=== PATIENT | female | born 1945 | race Caucasian/White ===

== ENCOUNTER 2023-11-23 20:56 | Inpatient (IN) | payer OTHER, SELFPAY ==
[2023-11-23] VITALS (8 sets, daily range): BP systolic 97–149; BP diastolic 50–72; BMI 23.8; BMI 24.1
[2023-11-23 16:35] LABS: % Basophils 0.7 % (0-2); % Eosinophils 6.8 % (0-6); % Immature Granulocytes 1.9 % (0-0.5); % Lymphocytes 9.5 % (20.5-51.1); % Monocytes 10.1 % (1.7-9.3); Absolute Basophils 0.1 10^3/uL (0-0.2); Absolute Eosinophils 0.8 10^3/uL (0-0.7); Absolute Immature Granulocytes 0.2 10^3/uL (0-0.05); Absolute Lymphocytes 1.1 10^3/uL (1.2-3.4); Absolute Monocytes 1.2 10^3/uL (0.1-0.6); Absolute Neutrophils 8.1 10^3/uL (1.4-6.5); Hematocrit 34.6 % (37.0-47.0); Hemoglobin 11.4 g/dL (12.0-16.0); Mean Corp Hgb Conc. 32.9 g/dL (33.0-37.0); Mean Platelet Volume 10.7 fL (7.4-10.4); Nucleated Red Blood Cells % 0 %; Platelet Count 317 10^3/uL (130-400); Red Blood Cell Count 4.07 10^6/uL (4.20-5.40); Red Cell Dist. Width 14.6 % (11.5-14.5); White Blood Cell Count 11.4 10^3/uL (4.8-10.8)
[2023-11-23 16:51] LABS: COVID-19 Antigen Negative (Negative)
--- NOTE | 2023-11-23 16:54 | ED.GENMED ---
History of Present Illness
General
Chief Complaint: Fever
Time Seen by Provider: 11/23/23 16:16
History of Present Illness
History of Present Illness:
78-year-old female history of colitis, IgG deficiency presenting with fever since 11/06. Patient states that she was admitted to [facility] from 10/29 to 11/01. Patient states that she was given prednisone taper that she completed on 11/05.
Patient states that on 11/06 she developed a fever which she has had every day since. Patient states that Tmax 101. Patient states that she followed up with her PCP today who sent patient to the ER for further workup. Patient reports dry cough for
the past 2 to 3 weeks with associated shortness of breath. Patient denies chest pain. Patient reports abdominal pain with nausea. Patient states that she takes MiraLAX daily and notes that she has had smaller bowel movements since. Patient
denies dysuria or hematuria.
Past History
Past History
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
ED Past Surgical History: Cardiac (Subclavian stenosis stenting)
Social History
Tobacco: Smoker
Alcohol: None
Drug: None
Personal:
Living: with family
Employment: Retired
Family History
Family History: Other (Reviewed and Noncontributory)
Phy Exam
Physical Exam
Physical Exam:
General: Alert, no acute distress
Head: NCAT
Eyes: clear conjunctiva
Neck: supple
Cardiac: tachycardic, regular rhythm, no murmur
Lungs: clear to auscultation bilaterally. No wheezes, rales, or rhonchi. Speaking full unlabored sentences. No respiratory distress.
Abdomen: soft, nondistended, left lower quadrant tenderness to palpation. No rebound or guarding.
MSK: no lower extremity edema bilaterally. No deformity
Skin: warm, dry
Neuro: Alert and oriented x3. no focal deficits
Course
Orders/Labs/Results
Orders:
Orders
11/23/23 16:24
COVID-19 Antigen Urgent
Source: Nasal Swab
Complete Blood Count/With Diff Urgent
Comprehensive Metabolic Panel Urgent
Lipase Urgent
Influenza A+B Rapid Molecular Urgent
EMANUEL Source: Nasal Swab
Specimen Description:
11/23/23 16:53
Abdomen/Pelvis w Contrast CT [CT Abd/pelvis W Iv Cont] Urgent
Comment:
Reason For Exam: llq tenderness, fever
Acetaminophen [Tylenol] 1,000 mg PO NOW STA
CXR2 [CR Chest - 2 Views ] Urgent
Comment:
Reason For Exam: cough sob
11/23/23 16:54
0.9% Sodium Chloride 1000 ml [Nss] 1,000 ml IV BOLUS
11/23/23 16:59
Diphenhydramine [Benadryl] 50 mg IV NOW STA
MethylPREDNISolone PF [Solu-Medrol Pf] 125 mg IV NOW STA
11/23/23 17:10
Lactic Acid Urgent
Blood Culture Urgent
EMANUEL Source: Blood/Venous
Specimen Description:
11/23/23 17:26
UA Reflex to Culture [Urinalysis Reflex To Culture] Urgent
Date Specimen was Collected: 11/23/23
Time Specimen was Collected: 17:14
Urine Microscopic Reflex Cult Urgent
Blood Culture Urgent
EMANUEL Source: Blood/Venous
Specimen Description:
11/23/23 19:39
Piperacillin/Tazo 4.5 Gram [Zosyn] 4.5 gram in 100 ml IV NOW
Vancomycin 1 Gram/200 ml [Vancocin] 1 gram in 200 ml IV NOW
Abnormal Lab Results
11/23/23 11/23/23
16 17:26
WBC 11.4 H 10^3/uL
(4.8-10.8)
RBC 4.07 L 10^6/uL
(4.20-5.40)
Hgb 11.4 L g/dL
(12.0-16.0)
Hct 34.6 L %
(37.0-47.0)
MCHC 32.9 L g/dL
(33.0-37.0)
RDW 14.6 H %
(11.5-14.5)
MPV 10.7 H fL
(7.4-10.4)
Abs Immat Gran (auto) 0.2 H 10^3/uL
(0-0.05)
Absolute Neuts (auto) 8.1 H 10^3/uL
(1.4-6.5)
Absolute Lymphs (auto) 1.1 L 10^3/uL
(1.2-3.4)
Absolute Monos (auto) 1.2 H 10^3/uL
(0.1-0.6)
Absolute Eos (auto) 0.8 H 10^3/uL
(0-0.7)
Immature Gran % 1.9 H %
(0-0.5)
Lymphocytes % 9.5 L %
(20.5-51.1)
Monocytes % 10.1 H %
(1.7-9.3)
Eosinophils % 6.8 H %
(0-6)
Sodium 133 L mmol/L
(135-145)
Glucose 103 H mg/dl
(70-99)
Total Protein 5.3 L g/dl
(6.3-8.2)
Albumin 3.3 L g/dl
(3.5-5.0)
Urine Ketones Trace A
(Negative)
Leukocyte Esterase Rfl Trace A
(Negative)
11/23/23 16:24
11/23/23 16:24
Vital Signs
Initial and Last Documented VS:
Initial Vital Signs
Temp Pulse Resp BP Pulse Ox
103 F H 106 18 149/72 93
11/23/23 16:12 11/23/23 16:12 11/23/23 16:12 11/23/23 16:12 11/23/23 16:12
Last Documented Vital Signs
Temp Pulse Resp BP Pulse Ox
98.9 F 106 18 149/72 93
11/23/23 19:16 11/23/23 16:12 11/23/23 16:12 11/23/23 16:12 11/23/23 16:12
MDM/Problems Addressed
Differential Diagnosis Includes:
Patient presents to the Emergency Department with ___fever
Number and Complexity of Problems Addressed at the Encounter
� Chronic conditions affecting care:
� Acute Exacerbation and/or Progression of Chronic Illness:
� Differential Diagnosis includes: UTI, pneumonia, viral syndrome, diverticulitis, intra-abdominal abscess, bacteremia
Amount and/or Complexity of Data to be Reviewed and Analyzed
� I performed an independent evaluation of and my interpretation is:
EKG:
CT:
Xrays: CXR clear with no focal infiltrate or consolidation as read by me
Laboratory Studies: leukocytosis with left shift. lactate within normal limits
Other:
� Review of other/old records reveals:
� Clinical information was obtained by an independent historian:
� Prescriptions/Medications Considered but not given:
� Further testing considered but not performed:
Risk of Complications and/or Morbidity or Mortality of Patient Management
� Social Determinants of health affecting care:
� Discussion with other providers (PCP, Hospitalists, Consultants, etc):
� Escalation of care including admission/observation vs risk of discharge considered: 78-year-old female presenting with fever since 11/06. Patient reports dry cough with associated shortness of breath for the past 2 weeks. Patient also reports
abdominal pain with nausea for the past 2 weeks. Heart tachycardic, lungs clear, abdomen soft nondistended left lower quadrant tenderness palpation. Will obtain septic workup including CT abdomen pelvis. Results reviewed. White count 11.4 with
left shift. Lactate normal. Electrolytes, creatinine within normal limits. UA negative for UTI. COVID/flu negative. Chest x-ray clear as read by me. CT abdomen pelvis showed Spiculated noncalcified right lower lobe pulmonary nodule. New. PET
imaging recommended. Large amount of fecal material throughout the colon. Ordered vancomycin and Zosyn for broad-spectrum antibiotics. Discussed results with patient at bedside. Discussed with hospitalist who accepts for admission for fever,
unknown source. Blood cultures pending
*Critical Care Note
Total Time (30-74mins, 75-104mins- exclusive of procedures): Not Applicable
ED Attending Note
-
Portions of this chart may have been created with voice recognition software.� Occasional wrong word or��sound alike� substitutions may have occurred due to the inherent limitations of voice recognition software.
Discharge Plan
Departure
Patient Disposition: Admit
Date of Disposition: 11/23/23
Time of Disposition: 19:54
Presentation/result/management discussed w/ accepting MD/DO: Hospitalist
Patient with high blood pressure during this ER visit?: Yes
Discharge Problem:
Fever
Prescriptions:
No Action
cetirizine 10 MG tablet
10 mg PO DAILY
diltiazem HCl 30 MG tablet
30 mg PO BID
diphenhydramine HCl [Banophen] 25 MG capsule
25 mg PO HS
nicotine 21 MG patch 24 hour
21 mg transdermal DAILY
Patient Comments:
05/02/2023: Takes off at bedtime.
rosuvastatin 5 MG tablet
5 mg PO MOWEFR
Hold Instructions: Resume on 04/26/23. Resume during the day after finishing Paxlovid
Rx Instructions:
On Hold From Paxlovid
famotidine 20 MG tablet
20 mg PO HS
aspirin 81 MG tablet,delayed release (DR/EC)
81 mg PO DAILY
fluticasone propion-salmeterol [Wixela Inhub] 250-50 mcg/dose Blister With Device
1 inh INHALATION R DAILY
Hold Instructions: Resume on 04/26/23. Resume the day after finishing Paxlovid.
levothyroxine 75 mcg Tablet
75 mcg PO DAILY
oxycodone-acetaminophen 5-325 mg Tablet
0.5 tab PO BIDPRN PRN (Reason: back pain)
Hold Instructions: Resume on 04/26/23. Resume the day after finishing Paxlovid
Patient Comments:
05/02/2023: last filled 03/17/23, 60 tabs for [address] [id number]
bisacodyl 5 mg Tablet
10 mg PO HS PRN (Reason: constipation)
ezetimibe 10 mg Tablet
10 mg PO HS
Senokot Extra Strength 17.2 mg Tablet
17.2 mg PO BID PRN (Reason: constipation)
cholecalciferol (vitamin D3) 25 mcg (1,000 unit) Tablet
25 mcg PO DAILY
Spiriva Respimat 2.5 mcg/actuation Mist
1 inh INHALATION R DAILY
lisinopril 5 MG tablet
5 mg PO DAILY
prednisone 20 mg tablet
20 mg PO DAILY
Rx Instructions:
x 5 days, Finished 05/01/23
pantoprazole 40 mg Tablet,Delayed Release (Dr/Ec)
40 mg PO DAILY Qty: 30 0RF
Referrals:
Aria Chu MD [Family Provider] -
Interventions
Interventions:
*Risk Screen - Suicide Last Done: 11/23/23 16:20
*General Assessment Last Done: 11/23/23 16:20
*Neglect/Abuse Screening Last Done: 11/23/23 16:20
ED- Fall Risk Assessment Last Done: 11/23/23 16:22
*ED COVID-19 Vaccine History Last Done: 11/23/23 16:20
ED- Neurological Assessment Last Done: 11/23/23 16:21
ED-Skin Assessment Last Done: 11/23/23 16:21
Discharge Date and Time
Print Language: RWANDAN
[2023-11-23] MEDS: TYLENOL 1000 MG PO (17:05)
[2023-11-23] MEDS: NSS 1000 IV ×2 (17:19→21:46)
[2023-11-23] MEDS: BENADRYL 50 MG IV (17:20)
[2023-11-23] MEDS: SOLU-MEDROL PF 125 MG IV (17:21)
[2023-11-23 17:30] LABS: ALT (SGPT) 13 U/L (0-35); AST (SGOT) 19 U/L (14-36); Albumin 3.3 g/dl (3.5-5.0); Alkaline Phosphatase 104 U/L (38-126); Blood Urea Nitrogen 16 mg/dl (7-17); Calcium 9.3 mg/dl (8.4-10.2); Carbon Dioxide 25 mmol/L (22-30); Chloride 103 mmol/L (98-107); Estimated Creatinine Clearance 40 ml/min; Glucose 103 mg/dl (70-99); Lipase 51 U/L (23-300); Sodium 133 mmol/L (135-145); Total Bilirubin 0.6 mg/dl (0.2-1.3); Total Protein 5.3 g/dl (6.3-8.2); eGFR > 60.00
[2023-11-23 17:33] LABS: Lactic Acid 0.9 mmol/L (0.7-2.0)
[2023-11-23 17:37] LABS: Urine Albumin Trace (Neg - Trace); Urine Bilirubin Negative (Negative); Urine Character Clear (Clear); Urine Color Yellow; Urine Glucose Negative (Negative); Urine Ketone Trace (Negative); Urine Leukocyte Trace (Negative); Urine Nitrite Negative (Negative); Urine Occult Blood Negative (Negative); Urine Urobilinogen Negative (Neg - 1+)
[2023-11-23 17:46] LABS: Urine Red Blood Cell 0-2 /HPF (0-2)
[2023-11-23] MEDS: ZOSYN 100 IV (19:50)
[2023-11-23] MEDS: VANCOCIN 200 IV (20:25)
--- NOTE | 2023-11-23 20:30 | HPS.HSE ---
Family Physician
-
Family Physician: Aria Chu
Chief Complaint
-
fever
History of Present Illness
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
stenosis, subclavian artery stent, hypertension, hyperlipidemia, peripheral arterial disease status post stent,, TIA, DVT, chronic lower back pain, presenting with fever since 11/06. She has been having daily fevers as high as 101.
Patient states dhe was admitted to [facility] from 10/29 to 11/01 for COPD exacerbation treated with steroids, nebulizers and antibiotics.
Since that admission she has been having issues with constipation. She is having daily bowel movements with stools very thin and hard and pale-colored. She has pain with straining. She has abdominal pain with pain in her lower quadrants of her
abdomen and increased abdominal distention. She denies any blood in the stool or black stool.
She was admitted here in April for rectal bleeding thought to be secondary to diverticulosis/colitis. She had a EGD and colonoscopy in May of this year which apparently showed a stomach tear and she was started on Pepcid. She was started on
MiraLAX at that time which she has been taking daily.
She does have some mild dry cough and shortness of breath which is improved compared to her recent hospitalization. She denies any chest pain.
She no longer smokes. She denies alcohol.
Medical History
Past Medical History
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
subclavian artery stent, hypertension, hyperlipidemia, peripheral arterial disease stat)
Past Surgical History: Reports None
Social History
Tobacco: Former Smoker
Alcohol: None
Drug: None
Family History
Family History: Not pertinent
Allergies / Home Medications
Allergies reflects when Allergies were last updated in [employer].
Home Medications with original date entered in [employer]
Allergy/Medication List:
Allergies
Allergy/AdvReac Type Severity Reaction Status Date / Time
bupropion HCl Allergy Hives / Verified 11/23/23 16:11
[From Wellbutrin] throat
tightness
dexlansoprazole Allergy Vomiting Verified 11/23/23 16:11
[From Dexilant]
duloxetine [From Cymbalta] Allergy Nausea, Verified 11/23/23 16:11
'burning'
tongue
house dust Allergy Wheezing, Verified 11/23/23 16:11
Sneezing
hydrochlorothiazide Allergy Burning of Verified 11/23/23 16:11
tongue
immune globulin,gamma (IgG) Allergy Serum Verified 11/23/23 16:11
human Sickness
Iodinated Contrast Media Allergy Hives Verified 11/23/23 16:11
Penicillins Allergy as a Verified 11/23/23 16:11
child;
tolerated
cephalexin
Sulfa (Sulfonamide Allergy Hives Verified 11/23/23 16:11
Antibiotics)
venom-honey bee Allergy Anaphylaxis Verified 11/23/23 16:11
[bee venom (honey bee)]
OMNIPAQUE 300 Allergy HEAT Uncoded 11/23/23 16:11
ACCROSS
CHEST AND
1 HIVE
06/29/1997
Home Medications
cetirizine 10 mg tablet 10 mg PO DAILY Allergies 03/06/16
diltiazem HCl 30 mg tablet 30 mg PO BID Heart disease/condition 03/06/16
diphenhydramine HCl 25 mg capsule (Banophen) 25 mg PO HS 04/03/19
aspirin 81 mg tablet,delayed release 81 mg PO DAILY Blood clot prevention/tx 04/01/20
rosuvastatin 5 mg tablet 5 mg PO MOWEFR High cholesterol 04/01/20
cholecalciferol (vitamin D3) 25 mcg (1,000 unit) tablet 25 mcg PO DAILY Supplement 04/20/23
ezetimibe 10 mg tablet 10 mg PO HS High Cholesterol 04/20/23
fluticasone 250 mcg-salmeterol 50 mcg/dose blistr powdr for inhalation (Wixela Inhub) 1 inh inhalation R BID Lung/Breathing Issues 04/20/23
levothyroxine 75 mcg tablet 75 mcg PO DAILY Thyroid 04/20/23
lisinopril 5 mg tablet 5 mg PO DAILY Blood Pressure 04/20/23
oxycodone-acetaminophen 5 mg-325 mg tablet 0.5 tab PO BIDPRN PRN back pain 04/20/23
tiotropium bromide 2.5 mcg/actuation mist for inhalation (Spiriva Respimat) 1 inh inhalation R BID Lung/Breathing Issues 04/20/23
famotidine 40 mg tablet 40 mg PO BID 11/23/23
polyethylene glycol 3350 17 gram oral powder packet (Miralax) 8.5 g PO NOON 11/23/23
Review of Systems
-
History Source: Patient
A 12 point ROS was completed and negative except as noted: Yes
Constitutional: Reports No Symptoms
EENT: Reports No Symptoms
Respiratory: Reports No Symptoms
Cardiac: Reports No Symptoms
Abdomen/GI: Reports See HPI
: Reports No Symptoms
Musculoskeletal: Reports No Symptoms
Skin: Reports No Symptoms
Neurological: Reports No Symptoms
Endocrine: Reports No Symptoms
Hematologic/Lymphatic: Reports No Symptoms
Psych: Reports No Symptoms
Physical Exam
Vital Signs
Vital Signs
Temp Pulse Resp BP Pulse Ox
98.9 F 76 21 121/57 93
11/23/23 19:16 11/23/23 20:00 11/23/23 20:00 11/23/23 20:00 11/23/23 20:00
Physical Exam
General: Well Developed, Well Nourished and No Apparent Distress
HEENT: NormoCephalic, Moist mucous membranes and Atraumatic
Respiratory: Clear
Cardiac: S1/S2 and Regular Rhythm; No Murmur or Rub
GI: Soft, Normal Bowel Sounds, Tender and Distended; No Organomegaly
Rectal: Deferred by Provider
Musculoskeletal: No Clubbing, No Cyanosis and No Edema
Skin: No Rash
Neuro: Nonfocal/grossly intact
Laboratory Results
-
11/23/23 16:24
11/23/23 16:24
Laboratory Results
Lactic Acid 0.9 mmol/L (0.7-2.0) 11/23/23 17:10
Total Bilirubin 0.6 mg/dl (0.2-1.3) 11/23/23 16:24
AST 19 U/L (14-36) 11/23/23 16:24
ALT 13 U/L (0-35) 11/23/23 16:24
Alkaline Phosphatase 104 U/L (38-126) 11/23/23 16:24
Lipase 51 U/L (23-300) 11/23/23 16:24
Data Reviewed
-
Lab Data: Labs Reviewed by me
Old Records: Reviewed
Impression/Plan
-
IMPRESSION:
PLAN:
# Sepsis (fever, leukocytosis, tachycardia) source likely stercoral colitis
-CT abdomen pelvis shows spiculated noncalcified right lower lobe pulmonary nodule for which PET scan is recommended, large amount of fecal material throughout the colon which is progressed
-COVID-negative, influenza negative
-Check blood cultures
-IV fluids
-Vancomycin/Zosyn given, continue cefepime/Flagyl
-Continue MiraLAX
-Milk and molasses enema
-Clear liquid diet
-GI consulted
# History of 'stomach tear'
-as seen on recent EGD/colonoscopy
# Incidental discovery of right lower lobe pulmonary nodule
-Will require outpatient PET scan
History of diverticulitis status post sigmoid resection in 1997
History of rectal bleeding secondary to colitis/diverticulosis
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
COPD
-Continue inhalers
Tobacco use disorder
History of thyroidectomy
Hypothyroidism
-Continue levothyroxine
Bilateral carotid artery stenosis
-Continue aspirin
History of subclavian artery stent
Essential hypertension
-Continue diltiazem
-Continue lisinopril
Hyperlipidemia
-Continue Zetia, statin
Peripheral arterial disease status post stent
History of TIA
History of DVT
Chronic lower back pain
-Continue Percocet
History of sacroiliac joint injection/right total hip replacement
Full code
DVT prophylaxis�heparin
Clear liquid diet
--- NOTE | 2023-11-23 21:15 | PTCARENOTE ---
Pt arrived from ED via stretcher and ambulated to bed. Pt is AAOx3, VSS, and w/o complaints of pain. Pt is resting comfortably w/ call lowe within reach.
--- NOTE | 2023-11-23 22:50 | PTCARENOTE ---
Pt ordered Milk and Molasses enema. Pt tolerated the full amount and had a formed moderate size bowel movement. Pt stated she had partial relief. Pt is resting comfortably w/ call lowe within reach.
[2023-11-23] MEDS: FLAGYL 500 MG 100 IV (23:10)
[2023-11-23] MEDS: ZETIA 10 MG PO (23:12)
[2023-11-23] MEDS: PEPCID 20 MG PO (23:12)
[2023-11-23] MEDS: BENADRYL 25 MG PO (23:12)
[2023-11-24 01:30] VITALS: BP 94/56
[2023-11-24] MEDS: MAXIPIME 1000 MG IV ×2 (01:41→13:43)
[2023-11-24] MEDS: STERILE WATER FOR INJECTION 10 ML IV ×2 (01:41→13:44)
[2023-11-24 04:00] VITALS: BP 124/60
[2023-11-24] MEDS: SYNTHROID 75 MCG PO (05:34)
[2023-11-24] MEDS: FLAGYL 500 MG 100 IV ×3 (05:34→22:09)
--- NOTE | 2023-11-24 07:18 | W.PN.HOSP.TC ---
Today's Communication/Plan
-
cont abx
bowel regimen enema diet as per GI
pain control
Assessment / Plan
Assessment / Plan
Physical Exam
General: Well Developed, Well Nourished and No Apparent Distress
HEENT: NormoCephalic, Moist mucous membranes and Atraumatic
Respiratory: Clear
Cardiac: S1/S2 and Regular Rhythm; No Murmur or Rub
GI: Soft, Normal Bowel Sounds, LLQ Tenderness Distended; No Organomegaly
Musculoskeletal: No Clubbing, No Cyanosis and No Edema
Skin: No Rash
Neuro: AOx3
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
artery stenosis, subclavian artery stent, hypertension, hyperlipidemia, peripheral arterial disease status post stent,, TIA, DVT, chronic lower back pain, presenting with fever since 11/06. She has been having daily fevers as high as 101.
Patient states dhe was admitted to [facility] from 10/29 to 11/01 for COPD exacerbation treated with steroids, nebulizers and antibiotics.
Since that admission she has been having issues with constipation. She is having daily bowel movements with stools very thin and hard and pale-colored. She has pain with straining. She has abdominal pain with pain in her lower quadrants of her
abdomen and increased abdominal distention. She denies any blood in the stool or black stool.
She was admitted here in April for rectal bleeding thought to be secondary to diverticulosis/colitis. She had a EGD and colonoscopy in May of this year which apparently showed a stomach tear and she was started on Pepcid. She was started on
MiraLAX at that time which she has been taking daily.
She does have some mild dry cough and shortness of breath which is improved compared to her recent hospitalization. She denies any chest pain.
She no longer smokes. She denies alcohol.
# Sepsis (fever, leukocytosis, tachycardia) source likely stercoral colitis
-CT abdomen pelvis shows spiculated noncalcified right lower lobe pulmonary nodule for which PET scan is recommended, large amount of fecal material throughout the colon which is progressed
-COVID-negative, influenza negative
-follow blood cultures
-IV fluids completed
-empiric Vancomycin/Zosyn switched to cefepime/Flagyl
-GI consult appreciated cont bowel regimen repeat enema
# History of 'stomach tear'
-as seen on recent EGD/colonoscopy
# Incidental discovery of right lower lobe pulmonary nodule
-Will require outpatient PET scan
History of diverticulitis status post sigmoid resection in 1997
History of rectal bleeding secondary to colitis/diverticulosis
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
COPD
-Continue inhalers
Tobacco use disorder
History of thyroidectomy
Hypothyroidism
-Continue levothyroxine
Bilateral carotid artery stenosis
-Continue aspirin
History of subclavian artery stent
Essential hypertension
-Continue diltiazem
-Continue lisinopril
Hyperlipidemia
-Continue Zetia, statin
Peripheral arterial disease status post stent
History of TIA
History of DVT
Chronic lower back pain
-Continue Percocet
History of sacroiliac joint injection/right total hip replacement
Full code
DVT prophylaxis�heparin
I spent a total of 55 minutes with the patient or on the floor. More than 50% of this time involved counseling and coordination of care.
Anticipated Discharge: 24 - 48 hours
Subjective/Interval History
-
Date of Service: November 24, 2023
No acute distress. Reports overall improvement in symptoms. Notes some relief constipation from enemas though not resolved.
Objective Data
-
Labs:
Laboratory Results
11/24/23
06:00
WBC Pending
Hgb Pending
Hct Pending
Plt Count Pending
Sodium Pending
Potassium Pending
Chloride Pending
Carbon Dioxide Pending
BUN Pending
Creatinine Pending
Glucose Pending
Calcium Pending
Total Bilirubin Pending
AST Pending
ALT Pending
Alkaline Phosphatase Pending
Vital Signs:
Vital Signs
Temp Pulse Resp BP Pulse Ox
97.8 F 64 17 124/60 95
11/24/23 01:30 11/23/23 23:55 11/23/23 23:55 11/24/23 04:00 11/23/23 23:55
[2023-11-24 07:30] VITALS: BP 115/60
[2023-11-24 08:00] LABS: % Basophils 0.7 % (0-2); % Eosinophils 0.2 % (0-6); % Immature Granulocytes 0.3 % (0-0.5); % Lymphocytes 18.2 % (20.5-51.1); % Monocytes 2.4 % (1.7-9.3); % Neutrophils 78.2 % (42.2-75.2); Absolute Monocytes 0.1 10^3/uL (0.1-0.6); Absolute Neutrophils 4.5 10^3/uL (1.4-6.5); Hematocrit 32.5 % (37.0-47.0); Hemoglobin 10.8 g/dL (12.0-16.0); Mean Corp Hgb Conc. 33.2 g/dL (33.0-37.0); Mean Corpuscular Hgb 28.6 pg (27.0-31.0); Mean Corpuscular Volume 86.2 fL (81.0-99.0); Mean Platelet Volume 10.8 fL (7.4-10.4); Nucleated Red Blood Cells % 0 %; Platelet Count 285 10^3/uL (130-400); Red Blood Cell Count 3.77 10^6/uL (4.20-5.40); Red Cell Dist. Width 14.4 % (11.5-14.5); White Blood Cell Count 5.7 10^3/uL (4.8-10.8)
[2023-11-24] MEDS: ADVAIR HFA 115/21 MCG INHALER 2 PUFF INH ×2 (08:07→20:07)
[2023-11-24] MEDS: SPIRIVA RESPIMAT 2.5 MCG 1 PUFF INH ×2 (08:07→20:07)
[2023-11-24] MEDS: ZYRTEC 10 MG PO (08:20)
[2023-11-24] MEDS: ASPIR LOW (ENTERIC COATED) 81 MG PO (08:21)
[2023-11-24] MEDS: VITAMIN D3 (cholecalciferol) 25 MCG PO (08:21)
[2023-11-24] MEDS: ZESTRIL 5 MG PO (08:21)
[2023-11-24] MEDS: CARDIZEM 30 MG PO ×2 (08:21→21:01)
[2023-11-24] MEDS: NICODERM TRANSDERMAL 14 MG TRANSDERM (08:22)
[2023-11-24 08:54] LABS: ALT (SGPT) 14 U/L (0-35); AST (SGOT) 17 U/L (14-36); Alkaline Phosphatase 94 U/L (38-126); Blood Urea Nitrogen 15 mg/dl (7-17); Carbon Dioxide 19 mmol/L (22-30); Chloride 110 mmol/L (98-107); Estimated Creatinine Clearance 52 ml/min; Glucose 127 mg/dl (70-99); Potassium 4.3 mmol/L (3.5-5.1); Sodium 136 mmol/L (135-145); Total Bilirubin 0.4 mg/dl (0.2-1.3); Total Protein 5.1 g/dl (6.3-8.2); eGFR > 60.00
--- NOTE | 2023-11-24 11:10 | CON.GI ---
Addendum entered and electronically signed by Philly Slade DO 11/24/23 17:00:
Patient seen and examined independently of ROGELIO. I agree with her note with my additions below
Jovita is a 78-year-old female with COPD with recent exacerbation and [facility], TIA, DVT, polycythemia vera who presents with fever, cough and lower abdominal pain with constipation. Imaging shows a large amount of stool. CT
scan which I reviewed does not show any evidence of diverticulitis. She was given 2 enemas with some relief.
No further fevers since yesterday. CT shows a right lower lobe pulmonary nodule that is spiculated. COVID-negative. Blood cultures are pending. On empiric antibiotics.
# Constipation patient was doing well outpatient on a once daily MiraLAX regimen -until she was admitted to [place] for COPD exacerbation which was the perfect storm including anticholinergics, immobility and lack of MiraLAX
--Patient did have 2 enemas with minimal relief
--Will give her a half bottle of magnesium citrate and continue her MiraLAX. Continue MiraLAX upon discharge.
-- On exam she is tender especially on the left side of her abdomen -no significant lymphadenopathy. Bowel loops are normal caliber. Terminal ileum was normal. Large amount of fecal material throughout the colon. Mild diverticulosis without
diverticulitis. No evidence of rectal thickening.
# Spiculated pulmonary nodule per primary
Original Note:
Consultation
-
Date/Time Consultation Requested: 11/23/233
Date/Time Consultation Performed: 11/24/23 1110
Requesting Provider: Erich Almazan MD
Performing Provider: ROGELIO Santa, Philly Slade DO
Reason for Consultation: colitis
Medical History
Chief Complaint / HPI
Chief Complaint: Rectal bleeding, colitis
History of Present Illness:
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
bleeding possible colitis on CT in April with recent admission to [place] 10/29-11/01 for COPD with steroid, nebulizer and abx treatment. Since admission noted with constipation and now presents with cough, fever, and constipation. CT
concerning on admission for large amount of fecal material in colon and CXR with right middle lobe PNA and pulm nodule. Asked to eval for continued change in bowel issues.
In reviewing with patient she had bleeding last April with follow up EGD/colon. She was placed on Famotidine 40mg BID and Miralax daily with improved GI symptoms. While at [place] Miralax was stopped and on return home was only passing
small amounts of stool. She admits to small amount of rectal bleeding from irritation with enema given in ER. She also admits to some nausea and occasional lower abdominal pain. She denies odynophagia, dysphagia, GERD, or black stools. Pt also
admits to recent of daughter but denies any change in medication or new antidepressants started.
Past Medical History
Past Medical History: COPD, HTN, Hypothyroidism and Other (DVT, IgG deficiency due to thryoid XRT as child, Polycytehmia vera, diverticulitis with prior resection. constipation, carotid artery stenosis, TIA,chronic back pain, osteoarthritis )
Past Surgical History: Other (Subclavian stenosis stent, Sigmoid colon resection, thyroidectomy)
Social History
Tobacco: Smoker (quit 10/2023)
Alcohol: None
Drug: None
Living: With Family (son)
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
Family History
Family History: Other (mother with hx diverticular disease and colostomy in past )
Allergies / Home Medications
Allergy/AdvReac Type Severity Reaction Status Date / Time
bupropion HCl Allergy Hives / Verified 11/23/23 16:11
[From Wellbutrin] throat
tightness
dexlansoprazole Allergy Vomiting Verified 11/23/23 16:11
[From Dexilant]
duloxetine [From Cymbalta] Allergy Nausea, Verified 11/23/23 16:11
'burning'
tongue
house dust Allergy Wheezing, Verified 11/23/23 16:11
Sneezing
hydrochlorothiazide Allergy Burning of Verified 11/23/23 16:11
tongue
immune globulin,gamma (IgG) Allergy Serum Verified 11/23/23 16:11
human Sickness
Iodinated Contrast Media Allergy Hives Verified 11/23/23 16:11
iohexol [From Omnipaque] Allergy 300-HEAT Verified 11/23/23 21:11
ACCROSS
CHEST AND
1 HIVE
06/29/1997
Penicillins Allergy as a Verified 11/23/23 16:11
child;
tolerated
cephalexin
Sulfa (Sulfonamide Allergy Hives Verified 11/23/23 16:11
Antibiotics)
venom-honey bee Allergy Anaphylaxis Verified 11/23/23 16:11
[bee venom (honey bee)]
�Medication �Instructions �Recorded
cetirizine 10 mg tablet 10 mg PO DAILY Allergies 03/06/16
diltiazem HCl 30 mg tablet 30 mg PO BID Heart 03/06/16
disease/condition
diphenhydramine HCl 25 mg capsule 25 mg PO HS sleep 04/03/19
(Banophen)
aspirin 81 mg tablet,delayed 81 mg PO DAILY Blood clot 04/01/20
release prevention/tx
rosuvastatin 5 mg tablet 5 mg PO MOWEFR High cholesterol 04/01/20
cholecalciferol (vitamin D3) 25 25 mcg PO DAILY Supplement 04/20/23
mcg (1,000 unit) tablet
ezetimibe 10 mg tablet 10 mg PO HS High Cholesterol 04/20/23
fluticasone 250 mcg-salmeterol 50 1 inh inhalation R BID 04/20/23
mcg/dose blistr powdr for Lung/Breathing Issues
inhalation (Wixela Inhub)
levothyroxine 75 mcg tablet 75 mcg PO DAILY Thyroid 04/20/23
lisinopril 5 mg tablet 5 mg PO DAILY Blood Pressure 04/20/23
oxycodone-acetaminophen 5 mg-325 0.5 tab PO BIDPRN PRN back pain 04/20/23
mg tablet
tiotropium bromide 2.5 1 inh inhalation R BID 04/20/23
mcg/actuation mist for inhalation Lung/Breathing Issues
(Spiriva Respimat)
famotidine 40 mg tablet 40 mg PO BID fluid retention/edema 11/23/23
nicotine 14 mg/24 hr daily 1 patch transdermal DAILY smoking 11/23/23
transdermal patch cessation
polyethylene glycol 3350 17 gram 8.5 g PO NOON constipation 11/23/23
oral powder packet (Miralax)
Review of Systems
-
History Source: Patient
Constitutional: Reports Fever and Weight Loss (with recent admission)
EENT: Reports No Symptoms
Respiratory: Reports Cough
Cardiac: Reports No Symptoms
Abdomen/GI: Reports Abdominal Pain (lower abdominal pain at times ) and Nausea
: Reports No Symptoms
Musculoskeletal: Reports No Symptoms
Skin: Reports No Symptoms
Neurological: Reports Weakness
Endocrine: Reports No Symptoms
Hematologic/Lymphatic: Reports Bleeding (some noted with local irritation with enema )
Vital Signs
Temp Pulse Resp BP Pulse Ox
97.9 F 65 16 115/60 97
11/24/23 07:30 11/24/23 08:12 11/24/23 08:12 11/24/23 07:30 11/24/23 08:12
Physical Exam
Exam
General: Well Developed, Well Nourished and No Apparent Distress
HEENT: Normocephalic and Anicteric
Respiratory: Clear
Cardiac: Regular Rhythm
GI: Soft, Non Tender and Non Distended
Musculoskeletal: No Clubbing and No Cyanosis
Skin: Warm and Dry
Neuro: Awake, Alert and AO x 3
Psych: Calm
Results
WBC 5.7 10^3/uL (4.8-10.8) 11/24/23 07:45
Hgb 10.8 g/dL (12.0-16.0) L 11/24/23 07:45
Hct 32.5 % (37.0-47.0) L 11/24/23 07:45
MCV 86.2 fL (81.0-99.0) 11/24/23 07:45
Plt Count 285 10^3/uL (130-400) 11/24/23 07:45
Absolute Neuts (auto) 4.5 10^3/uL (1.4-6.5) 11/24/23 07:45
Sodium 136 mmol/L (135-145) 11/24/23 07:45
Potassium 4.3 mmol/L (3.5-5.1) 11/24/23 07:45
Chloride 110 mmol/L (98-107) H 11/24/23 07:45
Carbon Dioxide 19 mmol/L (22-30) L 11/24/23 07:45
BUN 15 mg/dl (7-17) 11/24/23 07:45
Creatinine 0.7 mg/dL (0.6-1.0) 11/24/23 07:45
Calcium 9.0 mg/dl (8.4-10.2) 11/24/23 07:45
Total Bilirubin 0.4 mg/dl (0.2-1.3) 11/24/23 07:45
AST 17 U/L (14-36) 11/24/23 07:45
ALT 14 U/L (0-35) 11/24/23 07:45
Alkaline Phosphatase 94 U/L (38-126) 11/24/23 07:45
Lipase 51 U/L (23-300) 11/23/23 16:24
Diagnostic Image Results:
11/23/23 CXR: findings suggesting mild right middle lobe pneumonia.
Right apical pulmonary nodule versus less likely pneumonia. Progressed. This would better be evaluated by a nonurgent chest CT examination. This will be emailed to the [facility] pulmonary nodule advisory board.
11/23/23 CT A/p with IV contrast
IMPRESSION: Spiculated noncalcified right lower lobe pulmonary nodule. New. PET imaging recommended.
Large amount of fecal material throughout the colon. Progressed
Hepatic cysts. Stable Diverticulosis. Stable
Prior GI Procedures:
EGD: recent 2023 mark - [facility] recall tear in stomach
Colonoscopy: recent in May 2023 [facility] Perez recall diverticulosis
Assessment / Plan
-
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
bleeding possible colitis on CT in April with recent admission to [place] 10/29-11/01 for COPD with steroid, nebulizer and abx treatment. Since admission noted with constipation and now presents with cough, fever, and constipation. CT
concerning on admission for large amount of fecal material in colon and CXR with right middle lobe PNA and pulm nodule. Asked to eval for continued change in bowel issues.
-fever 103 with tachycardia on admission concern for sepsis
-CXR concern for middle lobe PNA
-Ct with constipation
-recent admission at [place] with COPD exacerbation
-lung nodule
other medical problems:
-GI bleed 04/2023 colitis vs other
-stomach 'tear' on EGD in 05/2023
-HTN
-hypothyroidism
-DVT
-Polycythemia vera
-IGG deficiency with prior XRT to thyroid as child
-subclavian arterial stent
-sigmoid resection for diverticular disease
-tobacco abuse
PLAN:
Etiology of fever related to PNA vs constipation/colitis vs other
some stool with 1 enema will give additional enema now
increased Miralax to BID and add senna
repeat X ray in AM to assess for improved stool burden
ok for low residue diet
reviewed CXR with patient with PNA
increase to Famotidine 40mg BID - home dose
cont abx
blood cx pending
work up for lung nodule per hospitalist
OP follows GI at [place] [facility] after discharge
support given with recent of daughter
-
-
Thank you for consultation and allowing me to participate in the patient's care. Please call the manager commission GI physician during the after hours with any questions or concerns.
[2023-11-24] MEDS: NSS IV (13:37)
[2023-11-24] MEDS: MIRALAX 8.5 GRAMS PO (14:09)
[2023-11-24 15:03] VITALS: BP 130/56
--- NOTE | 2023-11-24 16:47 | CM ---
IA completed with Jovita at bedside.
Pt is a 78 year old female with son living with her in a 2SH with 4 entry steps. 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 No DME, VN or SNF history. Pt plans to return home with her son who per pt is very supportive.
D/C plan: home with no needs. Son to transport at discharge.
PCP: Aria Chu
Pharmacy: [facility]
[2023-11-24] MEDS: CRESTOR 5 MG PO (17:50)
[2023-11-24] MEDS: MYLICON 80 MG PO (20:58)
[2023-11-24] MEDS: PEPCID 40 MG PO (21:01)
[2023-11-24] MEDS: MIRALAX 17 GRAMS PO (21:02)
[2023-11-24] MEDS: ULTRAM 25 MG PO (21:16)
[2023-11-24] MEDS: ZETIA 10 MG PO (22:09)
[2023-11-24] MEDS: SENOKOT 17.2 MG PO (22:09)
[2023-11-24] MEDS: BENADRYL 25 MG PO (22:09)
[2023-11-24 23:45] VITALS: BP 102/38
[2023-11-25] MEDS: MAXIPIME 1000 MG IV ×2 (02:57→14:50)
[2023-11-25] MEDS: STERILE WATER FOR INJECTION 10 ML IV ×2 (02:57→14:50)
[2023-11-25] MEDS: FLAGYL 500 MG 100 IV ×3 (05:24→22:02)
[2023-11-25] MEDS: SYNTHROID 75 MCG PO (05:25)
--- NOTE | 2023-11-25 06:49 | W.PN.HOSP.TC ---
Today's Communication/Plan
-
cont abx
bowel regimen enema as per GI
pulm brianal requested
follow cultures
Assessment / Plan
Assessment / Plan
Physical Exam
General: Well Developed, Well Nourished and No Apparent Distress
HEENT: NormoCephalic, Moist mucous membranes and Atraumatic
Respiratory: Clear
Cardiac: S1/S2 and Regular Rhythm; No Murmur or Rub
GI: Soft, Normal Bowel Sounds, LLQ Tenderness Distended; No Organomegaly
Musculoskeletal: No Clubbing, No Cyanosis and No Edema
Skin: No Rash
Neuro: AOx3
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
artery stenosis, subclavian artery stent, hypertension, hyperlipidemia, peripheral arterial disease status post stent,, TIA, DVT, chronic lower back pain, presenting with fever since 11/06. She has been having daily fevers as high as 101.
Patient states bc was admitted to [facility] from 10/29 to 11/01 for COPD exacerbation treated with steroids, nebulizers and antibiotics.
Since that admission she has been having issues with constipation. She is having daily bowel movements with stools very thin and hard and pale-colored. She has pain with straining. She has abdominal pain with pain in her lower quadrants of her
abdomen and increased abdominal distention. She denies any blood in the stool or black stool.
She was admitted here in April for rectal bleeding thought to be secondary to diverticulosis/colitis. She had a EGD and colonoscopy in May of this year which apparently showed a stomach tear and she was started on Pepcid. She was started on
MiraLAX at that time which she has been taking daily.
She does have some mild dry cough and shortness of breath which is improved compared to her recent hospitalization. She denies any chest pain.
She no longer smokes. She denies alcohol.
# Sepsis (fever, leukocytosis, tachycardia) source likely infection from stercoral colitis
-CT abdomen pelvis shows spiculated noncalcified right lower lobe pulmonary nodule for which PET scan is recommended, large amount of fecal material throughout the colon which is progressed
-COVID-negative, influenza negative
-follow blood cultures
-IV fluids completed
-empiric Vancomycin/Zosyn switched to cefepime/Flagyl
-GI consult appreciated cont bowel regimen, low residue diet, enema prn
# History of 'stomach tear'
-as seen on recent EGD/colonoscopy
#Possible PNA noted on CXR
# Incidental discovery of right lower lobe pulmonary nodule
-Will require outpatient PET scan
-abx as above
-Pulm juan luis requested
History of diverticulitis status post sigmoid resection in 1997
History of rectal bleeding secondary to colitis/diverticulosis
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
COPD
-Continue inhalers
Tobacco use disorder
History of thyroidectomy
Hypothyroidism
-Continue levothyroxine
Bilateral carotid artery stenosis
-Continue aspirin
History of subclavian artery stent
Essential hypertension
-Continue diltiazem
-Continue lisinopril
Hyperlipidemia
-Continue Zetia, statin
Peripheral arterial disease status post stent
History of TIA
History of DVT
Chronic lower back pain
-Continue Percocet
History of sacroiliac joint injection/right total hip replacement
Full code
DVT prophylaxis�heparin
Discussed with patient and patient's daughter Christiano at bedside
I spent a total of 55 minutes with the patient or on the floor. More than 50% of this time involved counseling and coordination of care.
Anticipated Discharge: 24 - 48 hours
Subjective/Interval History
-
Date of Service: November 25, 2023
No acute distress. Reports overall feeling well though some abd discomfort remains
Objective Data
-
Labs:
Laboratory Results
07/11/24
06:00
WBC Pending
Hgb Pending
Hct Pending
Plt Count Pending
Sodium Pending
Potassium Pending
Chloride Pending
Carbon Dioxide Pending
BUN Pending
Creatinine Pending
Glucose Pending
Calcium Pending
Vital Signs:
Vital Signs
Temp Pulse Resp BP Pulse Ox
98.4 F 73 18 102/38 97
11/24/23 23:45 11/24/23 23:45 11/24/23 23:45 11/24/23 23:45 11/24/23 23:45
I&O
11/23/23 11/24/23 11/25/23
06:59 06:59 06:59
Intake Total 1939
Balance 1939
[2023-11-25 07:10] VITALS: BP 119/58
[2023-11-25] MEDS: SPIRIVA RESPIMAT 2.5 MCG 1 PUFF INH ×2 (08:17→19:54)
[2023-11-25] MEDS: ADVAIR HFA 115/21 MCG INHALER 2 PUFF INH ×2 (08:17→19:54)
[2023-11-25 08:21] LABS: Hematocrit 28.3 % (37.0-47.0); Hemoglobin 9.4 g/dL (12.0-16.0); Mean Corp Hgb Conc. 33.2 g/dL (33.0-37.0); Mean Corpuscular Volume 87.3 fL (81.0-99.0); Mean Platelet Volume 11.2 fL (7.4-10.4); Platelet Count 288 10^3/uL (130-400); Red Blood Cell Count 3.24 10^6/uL (4.20-5.40); Red Cell Dist. Width 14.6 % (11.5-14.5); White Blood Cell Count 9.4 10^3/uL (4.8-10.8)
--- NOTE | 2023-11-25 08:47 | W.PN.GI.CBS2 ---
Today's Communication / Plan
-
-- Abdominal x-ray ordered
Assessment / Plan
-
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
bleeding possible colitis on CT in April with recent admission to [place] 10/29-11/01 for COPD with steroid, nebulizer and abx treatment. Since admission noted with constipation and now presents with cough, fever, and constipation. CT
concerning on admission for large amount of fecal material in colon and CXR with right middle lobe PNA and pulm nodule. Asked to eval for continued change in bowel issues.
-fever 103 with tachycardia on admission concern for sepsis
-CXR concern for middle lobe PNA
-Ct with constipation
-recent admission at [place] with COPD exacerbation
-lung nodule
other medical problems:
-GI bleed 04/2023 colitis vs other
-stomach 'tear' on EGD in 05/2023
-HTN
-hypothyroidism
-DVT
-Polycythemia vera
-IGG deficiency with prior XRT to thyroid as child
-subclavian arterial stent
-sigmoid resection for diverticular disease
-tobacco abuse
PLAN:
Etiology of fever related to PNA vs constipation/colitis vs other
some stool with 1 enema will give additional enema now
increased Miralax to BID and add senna
repeat X ray in AM to assess for improved stool burden
ok for low residue diet
reviewed CXR with patient with PNA
increase to Famotidine 40mg BID - home dose
cont abx
blood cx pending
work up for lung nodule per hospitalist
OP follows GI at [place] [facility] after discharge
support given with recent of daughter
11/25/23 -patient tender with guarding on the left side, unchanged from yesterday
--Going for an abdominal x-ray today
--Half bottle of magnesium citrate to help with the constipation
--Review of CT scan from 11/23/2023 with oral and IV contrast does not show any evidence of diverticulitis but does show a large amount of fecal material throughout the colon.
--Told her to eat light, mainly stick to more liquid based diet
--Patient is on antibiotics for pulmonary process which would cover any colonic as well
Subjective
Subjective
Date of Service: November 25, 2023
Patient had a small bowel movement overnight. Still having some left-sided discomfort. No nausea or vomiting. Ate Ethiopian toast this morning
Objective
Data Reviewed
Laboratory Data:
Laboratory Results
11/25/23 06:57
Laboratory Results
Total Bilirubin 0.4 mg/dl (0.2-1.3) 11/24/23 07:45
AST 17 U/L (14-36) 11/24/23 07:45
ALT 14 U/L (0-35) 11/24/23 07:45
Alkaline Phosphatase 94 U/L (38-126) 11/24/23 07:45
Lipase 51 U/L (23-300) 11/23/23 16:24
Vital Signs and I&O:
Vital Signs
Temp Pulse Resp BP Pulse Ox
98.4 F 73 18 102/38 97
11/24/23 23:45 11/24/23 23:45 11/24/23 23:45 11/24/23 23:45 11/24/23 23:45
I&O
11/24/23 11/25/23 11/26/23
06:59 06:59 06:59
Intake Total 1939
Balance 1939
Physical Exam
Physical Exam
HEENT: Anicteric
Pulmonary: Clear
GI: Soft and Tender (Worse in the left side)
Neuro: Non Focal
[2023-11-25 08:52] LABS: Blood Urea Nitrogen 21 mg/dl (7-17); Calcium 8.8 mg/dl (8.4-10.2); Carbon Dioxide 23 mmol/L (22-30); Chloride 112 mmol/L (98-107); Estimated Creatinine Clearance 40 ml/min; Glucose 82 mg/dl (70-99); Magnesium 2.2 mg/dl (1.6-2.3); Phosphorus 3.9 mg/dl (2.5-4.5); Potassium 4.4 mmol/L (3.5-5.1); Sodium 139 mmol/L (135-145); eGFR > 60.00
[2023-11-25] MEDS: CITROMA 150 ML PO ×2 (09:13→18:16)
[2023-11-25] MEDS: PEPCID 40 MG PO ×2 (09:14→20:07)
[2023-11-25] MEDS: ZESTRIL 5 MG PO (09:14)
[2023-11-25] MEDS: ZYRTEC 10 MG PO (09:14)
[2023-11-25] MEDS: CARDIZEM 30 MG PO ×2 (09:15→20:07)
[2023-11-25] MEDS: ASPIR LOW (ENTERIC COATED) 81 MG PO (09:16)
[2023-11-25] MEDS: NICODERM TRANSDERMAL 14 MG TRANSDERM (09:16)
[2023-11-25] MEDS: VITAMIN D3 (cholecalciferol) 25 MCG PO (09:16)
[2023-11-25] MEDS: MIRALAX 17 GRAMS PO ×2 (09:17→20:50)
--- NOTE | 2023-11-25 10:13 | W.PN.GI.CBS2 ---
Addendum entered and electronically signed by Cheri Deal MD 11/26/23 18:41:
I saw and examined the patient.
The ANIMAL SCIENCE INSTRUCTOR or PA's note was reviewed and I agree with the note.
Comment:
Pt feels very good after cleanout. marked off how many on sheet, no abdominal pain
abd:soft
impression constipation resolved
plan:
miralax/senna as outpatient
f/u with own outpatient gi
will sign off call with questions
Original Note:
Today's Communication / Plan
-
no further fever and feeling better, abdominal pain improving with clean out
multiple stools with mag citrate
change Miralax to daily with senna at HS
low residue diet x1 week then slowly add fiver
s/p CT chest per pulm
cont home dose Famotidine 40mg BID
cont abx per hospitalist
blood cx neg
OP follows GI at [place] [facility] after discharge
Assessment / Plan
-
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
bleeding possible colitis on CT in April with recent admission to [place] 10/29-11/01 for COPD with steroid, nebulizer and abx treatment. Since admission noted with constipation and now presents with cough, fever, and constipation. CT
concerning on admission for large amount of fecal material in colon and CXR with right middle lobe PNA and pulm nodule. Asked to eval for continued change in bowel issues.
11/25/23 abd X ray moderate to large amount of feces in colon slight decreased from 11/22 CT
-fever 103 with tachycardia on admission concern for sepsis
-CXR concern for middle lobe PNA
-Ct with constipation
-recent admission at [place] with COPD exacerbation
-lung nodule
other medical problems:
-GI bleed 04/2023 colitis vs other
-stomach 'tear' on EGD in 05/2023
-HTN
-hypothyroidism
-DVT
-Polycythemia vera
-IGG deficiency with prior XRT to thyroid as child
-subclavian arterial stent
-sigmoid resection for diverticular disease
-tobacco abuse
PLAN:
no further fever and feeling better, abdominal pain improving with clean out
multiple stools with mag citrate
change Miralax to daily with senna at HS
low residue diet x1 week then slowly add fiver
s/p CT chest per pulm
cont home dose Famotidine 40mg BID
cont abx per hospitalist
blood cx neg
OP follows GI at [place] [facility] after discharge
Subjective
Subjective
Date of Service: November 25, 2023
on low residue diet feeling much better abdominal pain resolving, multiples stools
Objective
Data Reviewed
Laboratory Data:
Laboratory Results
11/25/23 06:57
11/25/23 06:57
Laboratory Results
Phosphorus 3.9 mg/dl (2.5-4.5) 11/25/23 06:57
Magnesium 2.2 mg/dl (1.6-2.3) 11/25/23 06:57
Total Bilirubin 0.4 mg/dl (0.2-1.3) 11/24/23 07:45
AST 17 U/L (14-36) 11/24/23 07:45
ALT 14 U/L (0-35) 11/24/23 07:45
Alkaline Phosphatase 94 U/L (38-126) 11/24/23 07:45
Lipase 51 U/L (23-300) 11/23/23 16:24
Vital Signs and I&O:
Vital Signs
Temp Pulse Resp BP Pulse Ox
98.4 F 76 18 119/58 93
11/25/23 07:10 11/25/23 07:10 11/25/23 07:10 11/25/23 07:10 11/25/23 07:10
I&O
11/24/23 11/25/23 11/26/23
06:59 06:59 06:59
Intake Total 1939
Balance 1939
Physical Exam
Physical Exam
HEENT: Anicteric and Moist mucous membranes
Cardiology: Normal Sinus Rhythm
Pulmonary: Clear
GI: Soft, Non Distended and Non Tender
Extremities: No Edema
Neuro: Non Focal
--- NOTE | 2023-11-25 12:08 | PN.CDI ---
CDI
- -
CDI:
Physician Documentation Request
Admit Date: 11/23/23 20:56
Dear Doctor Radha,
Please review the following and provide your response in the progress notes.
Clinical Indicators:
PN, 11/23
# Sepsis (fever, leukocytosis, tachycardia) source likely stercoral colitis
#-empiric Vancomycin/Zosyn switched to cefepime/Flagyl
#History of rectal bleeding secondary to colitis/diverticulosis
If possible, please provide additional specificity regarding the type and acuity of colitis:
Infectious - indicate known or suspected organism (c. difficile or other)
Ischemic - indicate if acute, subacute or chronic
Non-infectious - indicate type such as toxic, allergic, dietetic, eosinophilic, etc.)
Other - please specify
Use of terms such as suspected, likely, concern for, or probable (associated with a specific diagnosis that is being evaluated, monitored, or treated as if it exists) are acceptable and can be coded in the inpatient setting, when documented at the
time of discharge.
Thank you,
Ngoc Keita RN BSN CCDS
CDI Specialist
please contact via tiger text
Please use your independent medical judgment in providing your response.
--- NOTE | 2023-11-25 12:35 | CON.PUL ---
Consultation
Consultation Request
Date/Time Consultation Requested: 11/25/2023 - 115
Date/Time Consultation Performed: 11/25/2023 - 1215
Requesting Provider: Dr. Garcia
Performing Provider: Dr. Collins
Reason for Consultation: Lung Nodule/COPD
Medical History
-
Chief Complaint: Fevers/Nausea/Chills
History of Present Illness:
78-year-old female tobacco smoker with a past medical history of COPD, asthma, personal history of COVID-19, hypertension, CAD, history of RLE DVT, history of recurrent pneumonia/bronchitis and anxiety who presents with fevers, nausea and chills.
She was recently hospitalized at [facility] from 10/29 - 11/02/2023 for COPD exacerbation, treated with steroids, nebs and antibiotics. She says that since she has been discharged she has been having constipation with thin stool that were pale colored. She
has mild dry cough with SOB. She also apparently had an EGD in May of this year showing a stomach 'tear.' Here in the ER, her temperature was 103 �F, she was tachycardic to 106, RR: 18, BP 149/72 and SpO2 93% on room air. Labs showed
leukocytosis to 11.4, absolute eosinophilia of 800, serum sodium 133, trace leukocyte esterase on UA, and COVID antigen negative. Flu A/B was negative and blood cultures were collected. CT abdomen/pelvis showed dependent atelectasis with suspected
noncalcified lung nodule in the RLL measuring up to 1 cm. There also was a large amount of fecal matter throughout the colon. CXR showed suspected RML pneumonia. Vancomycin/Zosyn, Solu-Medrol and IVF with 1 L of NS 0.9% was given to the patient.
She was admitted to the hospitalist service and given lung nodule with history of COPD, pulmonary service now consulted for additional management/recommendations.
When I saw the patient she was in bed, in no acute distress on room air breathing comfortably. She denies any change to her usual morning cough, which usually is productive of white phlegm, and she denies any recent sick contacts, fevers, chills,
malaise or generalized weakness. She was unaware of having a high eosinophil count and denies having history of that. She says that when she went to [facility] recently she was wheezing, short of breath and coughing. She says that that does happen
throughout the year and usually is treated with a Medrol Dosepak + Zithromax which usually stops her symptoms and helps her. Because she has not not seen us since 2020, when she recently got out of the hospital at [facility] on 11/01, her PCP started her
on Breztri but she developed a cough with voice hoarseness after using it for about 2 weeks. She then started back on her Wixela + Spiriva and she has been breathing well with this. Today, she still feels short of breath with activity. She was
still smoking cigarettes up until her hospitalization at [facility] on 10/30/2023, but she is motivated to stop smoking now. She is using a nicotine patch. She still feels constipated. She denies chest pain, headache, abdominal pain, nausea, vomiting,
fevers or chills. I discussed her case with her daughter, Christiano ([phone]) and answered all of her questions.
Of note patient had previously followed with us in the office in October [address] Fontenot. She had COVID-19 in March 2020 treated with Decadron, remdesivir and supportive measures. She had refused to get the COVID-19 vaccine. She has COPD
that was managed on Wixela + Spiriva with albuterol HFA as needed. She also has a history of asthma, with triggers to pollen. Pulmonary rehab was recommended at that time. She has a 19-[id number]-nemn smoker, admits to still smoking a few cigarettes
here and there. She has history of recurrent pneumonia X6 with recurrent bronchitis. Last PFT done in Jun 2020 showing moderate COPD with positive/non-significant bronchodilator response, with hyperinflation, borderline air trapping, and moderate
gas exchange capacity defect.
PMHx: COPD, asthma, personal history of COVID-19 (March 2020), anxiety, osteoporosis, CAD, hypertension, tobacco use disorder, RLE DVT (1981), history of recurrent pneumonia/bronchitis, carotid artery stenosis, subclavian artery stent, PAD,
history of TIA, chronic lower back pain, history of Prinzmetal's angina, psoriatic arthritis, immunodeficiency, PCV
PShx: T&A, appendectomy, cholecystectomy, thyroidectomy, parathyroid removal, left subclavian arterial stent, cardiac ablation for SVT, right hip replacement
Past Medical History
Past Medical History: Other (Above as per HPI)
Past Surgical History: Other (Above as per HPI)
Social History
Tobacco: Former Smoker (Was smoking <0.25 PPD up until 10/30/2023 when she was hospitalized at [facility]; otherwise has a 68-97-xqwk-year history)
Alcohol: None
Drug: None
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
Family History
Family History: Diabetes (Mother), Hypertension (Mother) and Other (Father: COPD; mother: Mental illness + CHF)
Allergies / Home Medications
Allergies
Allergy/AdvReac Type Severity Reaction Status Date / Time
bupropion HCl Allergy Hives / Verified 11/23/23 16:11
[From Wellbutrin] throat
tightness
dexlansoprazole Allergy Vomiting Verified 11/23/23 16:11
[From Dexilant]
duloxetine [From Cymbalta] Allergy Nausea, Verified 11/23/23 16:11
'burning'
tongue
house dust Allergy Wheezing, Verified 11/23/23 16:11
Sneezing
hydrochlorothiazide Allergy Burning of Verified 11/23/23 16:11
tongue
immune globulin,gamma (IgG) Allergy Serum Verified 11/23/23 16:11
human Sickness
Iodinated Contrast Media Allergy Hives Verified 11/23/23 16:11
iohexol [From Omnipaque] Allergy 300-HEAT Verified 11/23/23 21:11
ACCROSS
CHEST AND
1 HIVE
06/29/1997
Penicillins Allergy as a Verified 11/23/23 16:11
child;
tolerated
cephalexin
Sulfa (Sulfonamide Allergy Hives Verified 11/23/23 16:11
Antibiotics)
venom-honey bee Allergy Anaphylaxis Verified 11/23/23 16:11
[bee venom (honey bee)]
Home Medications
�Medication �Instructions �Recorded �Confirmed �Last Taken �Type
cetirizine 10 mg tablet 10 mg PO DAILY Allergies 03/06/16 11/23/23 11/23/23 History
diltiazem HCl 30 mg tablet 30 mg PO BID Heart 03/06/16 11/23/23 11/23/23 History
disease/condition
diphenhydramine HCl 25 mg capsule 25 mg PO HS sleep 04/03/19 11/23/23 11/22/23 History
(Banophen)
aspirin 81 mg tablet,delayed 81 mg PO DAILY Blood clot 04/01/20 11/23/23 11/23/23 History
release prevention/tx
rosuvastatin 5 mg tablet 5 mg PO MOWEFR High cholesterol 04/01/20 11/23/23 11/22/23 History
cholecalciferol (vitamin D3) 25 25 mcg PO DAILY Supplement 04/20/23 11/23/23 11/23/23 History
mcg (1,000 unit) tablet
ezetimibe 10 mg tablet 10 mg PO HS High Cholesterol 04/20/23 11/23/23 11/22/23 History
fluticasone 250 mcg-salmeterol 50 1 inh inhalation R BID 04/20/23 11/23/23 11/23/23 History
mcg/dose blistr powdr for Lung/Breathing Issues
inhalation (Wixela Inhub)
levothyroxine 75 mcg tablet 75 mcg PO DAILY Thyroid 04/20/23 11/23/23 11/23/23 History
lisinopril 5 mg tablet 5 mg PO DAILY Blood Pressure 04/20/23 11/23/23 11/23/23 History
oxycodone-acetaminophen 5 mg-325 0.5 tab PO BIDPRN PRN back pain 04/20/23 11/23/23 1 Week Ago History
mg tablet ~11/16/23
tiotropium bromide 2.5 1 inh inhalation R BID 04/20/23 11/23/23 11/23/23 History
mcg/actuation mist for inhalation Lung/Breathing Issues
(Spiriva Respimat)
famotidine 40 mg tablet 40 mg PO BID fluid retention/edema 11/23/23 11/23/23 11/23/23 History
nicotine 14 mg/24 hr daily 1 patch transdermal DAILY smoking 11/23/23 11/23/23 11/23/23 08:00 History
transdermal patch cessation
polyethylene glycol 3350 17 gram 8.5 g PO NOON constipation 11/23/23 11/23/23 11/22/23 History
oral powder packet (Miralax)
Review of Systems
-
History Source: Patient
All other systems: Negative unless noted
Vitals / Labs / Diagnostic Testing
Vital Signs
Temp Pulse Resp BP Pulse Ox
98.4 F 76 18 119/58 93
11/25/23 07:10 11/25/23 07:10 11/25/23 07:10 11/25/23 07:10 11/25/23 07:10
Lab Data
11/25/23 06:57
11/25/23 06:57
Microbiology
11/23/23 17:26 Blood/Venous Blood Culture - Preliminary
No Growth in 24 hours- Final report to follow
11/23/23 17:10 Blood/Venous Blood Culture - Preliminary
No Growth in 24 hours- Final report to follow
11/23/23 16:24 Nasal Swab Influenza Types A & B ([facility]) - Final
Negative for Influenza A & B, NAAT
Negative results must be combined with clinical observations
and patient history.
Nucleic Acid Amplification test (NAAT)performed on the
[employer] platform.
Diagnostic Testing:
Physical Exam
-
HEENT: Normocephalic and Anicteric
Cardiovascular: S1/S2, Peripheral Edema (negative) and Other (Distant heart sounds)
Respiratory: Wheeze (negative), Rales (negative), Rhonchi (negative), Non-Labored Respirations and Other (Reduced breath sounds bilaterally)
GI: Soft, Non Distended, Non Tender and Normal Bowel Sounds
Neurology: AO x 3 and Tremors (negative)
Skin: Warm and Dry
General: Respiratory Distress (negative), Comfortable, Fever (negative) and Chills (negative)
Assessment
-
Assessment: 78-year-old female tobacco smoker with a past medical history of COPD, asthma, personal history of COVID-19, hypertension, CAD, history of RLE DVT, history of recurrent pneumonia/bronchitis and anxiety who presents with fevers, nausea
and chills. She was recently hospitalized at [facility] from 10/29 - 11/02/2023 for COPD exacerbation, treated with steroids, nebs and antibiotics. She says that since she has been discharged she has been having constipation with thin stool that were pale
colored. She has mild dry cough with SOB. She also apparently had an EGD in May of this year showing a stomach 'tear.' Here in the ER, her temperature was 103 �F, she was tachycardic to 106, RR: 18, BP 149/72 and SpO2 93% on room air. Labs
showed leukocytosis to 11.4, absolute eosinophilia of 800, serum sodium 133, trace leukocyte esterase on UA, and COVID antigen negative. Flu A/B was negative and blood cultures were collected. CT abdomen/pelvis showed dependent atelectasis with
suspected noncalcified lung nodule in the RLL measuring up to 1 cm. There also was a large amount of fecal matter throughout the colon. CXR showed suspected RML pneumonia. Vancomycin/Zosyn, Solu-Medrol and IVF with 1 L of NS 0.9% was given to the
patient. She was admitted to the hospitalist service and given lung nodule with history of COPD, pulmonary service now consulted for additional management/recommendations.
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
stent, PAD, history of TIA, chronic lower back pain, history of Prinzmetal's angina, psoriatic arthritis, immunodeficiency, PCV
Impression:
#RLL spiculated nodule (1cm via CT A/P from 11/2023 - was new compared to prior CT A/P from 04/2023) --> on coronal section it appears to be subsegmental atelectasis
#Sepsis without shock - sources include stercoral colitis vs pneumonia vs UTI
#Suspected RML pneumonia, however her cough + shortness of breath have improved compared to last month when she was hospitalized at [facility]
#Acute COPD/asthma exacerbation in the setting of type II inflammation (absolute eosinophils : 800 this admission) - on Wixela and Spiriva at baseline
#Increased eosinophil count
#Chronic anemia
#Nausea vomiting and constipation
#Hx of 'stomach tear'
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
Plan:
- Obtain dedicated CT chest to evaluate remaining lung parenchyma for any additional lung nodules and to assess for suspected pneumonia
-Depending on findings, we will at the very least repeat CT chest in 3 months to assess stability of nodule
- Continue with broad-spectrum antibiotics - currently on cefepime/Flagyl s/p vancomycin/Zosyn
- Follow-up infectious workup with blood cultures; check urine antigens for Legionella/strep pneumonia; check sputum culture if patient can submit a decent sample
- Resume spiriva and continue Advair 115mcg 2 puffs BID, and on discharge resume her home regimen
- prn nebulized bronchodilators
- Check Ig levels since she carries a Hx of this and levels have not been checked in 'years'
- Maintain SpO2 >88-94% with supplemental O2 as needed
- Incentive spirometer encouraged
- Bowel regimen
- Replete electrolytes with K>4, Mg>2
- Maintain euglycemia with goal BG >100 and <180
- DVT ppx
- outpatient follow up with our office - she should obtain repeat imaging in next 3 months to re-assess RLL nodule; she also is a candidate for biologic therapy considering her absolute eosinophil count is 800 with uncontrolled COPD/asthma symptoms
while on triple inhaler therapy. It appears that she is on Wixela Inhub 250mcg, so first thing we should do is maximize this to the 500-50 mcg/ACT dose. She should be discharged on this and then see me in the office where we can discuss biologic
therapy if symptoms are still uncontrolled. We also need up-to-date PFTs.
Pulmonary service will continue to follow along.
Total time spent today was 55 minutes for this encounter. Time includes reviewing laboratory test/imaging results, reviewing pertinent medical records, obtaining and reviewing medical history, performing an appropriate exam, ordering medications,
tests and procedures. Time also includes documentation of this encounter, coordinating patient care and communicating with other healthcare professionals. Total time does not include separately billed tests performed on this date of service.
Data:
CXR 11-23-2023: New findings suggesting mild right middle lobe pneumonia.
CT Abd/Pelvis with IV contrast 11-23-2023:
Spiculated noncalcified right lower lobe pulmonary nodule. New. PET imaging recommended.
Large amount of fecal material throughout the colon. Progressed
Hepatic cysts. Stable
Diverticulosis. Stable
Outpatient [facility] data:
PFT:
������ [place] 10/17/20: FVC 2.46/93%, FEV1 1.19/60%, ratio 48. When compared to June, FEV1 continues to decline
�������PFT 06/20/20: FVC 2.54/100%, FEV1 1.34/70%, ratio 54. TLC 5.90/133%, RV 3.07/156%, RV/TLC ratio 52, DLCO 9.02/47%.
6 MWT:
������ 6MWT 10/17/20: Total distance 864 feet, 97% room air, heart rate 100, dyspnea scale 0/10
�������6MWT 06/20/20: Total distance 900 feet, 91% on room air, heart rate 119, dyspnea scale 2/10. Complaining of back pain.
RADIOGRAPHIC STUDIES:
������ CT chest 04/02/20: No evidence of pulmonary embolism. Findings compatible with emphysema. Minor right lower lobe opacity most likely representing segmental atelectasis, minimal pneumonia.
�������CXR 04/01/20: no acute disease of the chest
�������CT chest 06/13/15: Moderate emphysema, left subclavian stent.
CARDIAC STUDIES:
������ Echo 07/19/20: hyperdynamic LV, EF 75%. normal RV, No significant valvar disease. normal PAP
�������Echo 12/27/15: Normal biventricular function, right heart pressures could not be determined
�������LHC 03/09/14: no significant coronary disease. Left subclavian artery stenosis with stent placement.
LABS:
������ 04/01/20: D-dimer 0.67, hemoglobin 15.9,normal serum bicarbonate, creatinine, calcium, liver function
�������positive Covid test at [facility] 03/26/2020
�������Son with positive Covid test.
[2023-11-25] MEDS: FLUSH (NSS) 2 FLUSH IV (14:50)
[2023-11-25] MEDS: ZOFRAN 4 MG IV ×2 (14:51→21:16)
[2023-11-25 16:00] VITALS: BP 135/60
[2023-11-25] MEDS: ZETIA 10 MG PO (20:07)
[2023-11-25] MEDS: DELTASONE 10 MG PO (20:08)
[2023-11-25] MEDS: SENOKOT 17.2 MG PO (21:14)
[2023-11-25] MEDS: BENADRYL 25 MG PO (22:02)
[2023-11-25 23:54] VITALS: BP 128/61
[2023-11-26] MEDS: MAXIPIME 1000 MG IV ×2 (02:27→15:35)
[2023-11-26] MEDS: STERILE WATER FOR INJECTION 10 ML IV ×2 (02:27→15:36)
[2023-11-26] MEDS: SYNTHROID 75 MCG PO (06:17)
[2023-11-26] MEDS: FLAGYL 500 MG 100 IV ×3 (06:17→21:33)
[2023-11-26 07:27] VITALS: BP 127/64
--- NOTE | 2023-11-26 07:31 | W.PN.HOSP.TC ---
Today's Communication/Plan
-
cont abx, to transition to oral next 24 hours
bowel regimen as per GI
bronchodilators, inhalers, steroids as per Pulm
home oxygen assessment.
Assessment / Plan
Assessment / Plan
Physical Exam
General: Well Developed, Well Nourished and No Apparent Distress
HEENT: NormoCephalic, Moist mucous membranes and Atraumatic
Respiratory: Clear
Cardiac: S1/S2 and Regular Rhythm; No Murmur or Rub
GI: Soft, Normal Bowel Sounds, LLQ Tenderness Distended; No Organomegaly
Musculoskeletal: No Clubbing, No Cyanosis and No Edema
Skin: No Rash
Neuro: AOx3
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
artery stenosis, subclavian artery stent, hypertension, hyperlipidemia, peripheral arterial disease status post stent,, TIA, DVT, chronic lower back pain, presenting with fever since 11/06. She has been having daily fevers as high as 101.
Patient states dhe was admitted to [facility] from 10/29 to 11/01 for COPD exacerbation treated with steroids, nebulizers and antibiotics.
Since that admission she has been having issues with constipation. She is having daily bowel movements with stools very thin and hard and pale-colored. She has pain with straining. She has abdominal pain with pain in her lower quadrants of her
abdomen and increased abdominal distention. She denies any blood in the stool or black stool.
She was admitted here in April for rectal bleeding thought to be secondary to diverticulosis/colitis. She had a EGD and colonoscopy in May of this year which apparently showed a stomach tear and she was started on Pepcid. She was started on
MiraLAX at that time which she has been taking daily.
She does have some mild dry cough and shortness of breath which is improved compared to her recent hospitalization. She denies any chest pain.
She no longer smokes. She denies alcohol.
# Sepsis (fever, leukocytosis, tachycardia) source likely infection from stercoral colitis
-CT abdomen pelvis shows spiculated noncalcified right lower lobe pulmonary nodule for which PET scan is recommended, large amount of fecal material throughout the colon which is progressed
-COVID-negative, influenza negative
-follow blood cultures
-IV fluids completed
-empiric Vancomycin/Zosyn switched to cefepime/Flagyl to convert to oral cefdinir and flaygyll total 7 days abx planned
-GI consult appreciated cont bowel regimen, low residue diet, enema prn
# History of 'stomach tear'
-as seen on recent EGD/colonoscopy
#Possible PNA noted on CXR
# Incidental discovery of right lower lobe pulmonary nodule
-Will require outpatient PET scan
-abx as above
-Pulm eval appreciated steroid taper
-home oxygen assessment.
History of diverticulitis status post sigmoid resection in 1997
History of rectal bleeding secondary to colitis/diverticulosis
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
COPD
-Continue inhalers
Tobacco use disorder
History of thyroidectomy
Hypothyroidism
-Continue levothyroxine
Bilateral carotid artery stenosis
-Continue aspirin
History of subclavian artery stent
Essential hypertension
-Continue diltiazem
-Continue lisinopril
Hyperlipidemia
-Continue Zetia, statin
Peripheral arterial disease status post stent
History of TIA
History of DVT
Chronic lower back pain
-Continue Percocet
History of sacroiliac joint injection/right total hip replacement
Full code
DVT prophylaxis�heparin
Discussed with patient and patient's daughter Christiano at bedside
I spent a total of 55 minutes with the patient or on the floor. More than 50% of this time involved counseling and coordination of care.
Anticipated Discharge: 24 - 48 hours
Subjective/Interval History
-
Date of Service: November 26, 2023
Reports significant improvement in overall symptoms. Continues to report exertional dyspnea.
Objective Data
-
Labs:
Laboratory Results
11/26/23
06:40
WBC Pending
Hgb Pending
Hct Pending
Plt Count Pending
Sodium Pending
Potassium Pending
Chloride Pending
Carbon Dioxide Pending
BUN Pending
Creatinine Pending
Glucose Pending
Calcium Pending
Vital Signs:
Vital Signs
Temp Pulse Resp BP Pulse Ox
98.3 F 72 18 128/61 93
11/25/23 23:54 11/25/23 23:54 11/25/23 23:54 11/25/23 23:54 11/25/23 23:54
I&O
11/25/23 11/26/23 11/27/23
06:59 06:59 06:59
Intake Total 1939 960 / 960
Balance 1939 960 / 960
[2023-11-26] MEDS: ADVAIR HFA 115/21 MCG INHALER 2 PUFF INH ×2 (07:58→18:00)
[2023-11-26] MEDS: SPIRIVA RESPIMAT 2.5 MCG 1 PUFF INH ×2 (07:58→18:03)
[2023-11-26] MEDS: MIRALAX PO ×2 (08:04→08:14)
[2023-11-26] MEDS: NICODERM TRANSDERMAL 14 MG TRANSDERM (08:04)
[2023-11-26] MEDS: ZYRTEC 10 MG PO (08:05)
[2023-11-26] MEDS: ZESTRIL 5 MG PO (08:05)
[2023-11-26] MEDS: ASPIR LOW (ENTERIC COATED) 81 MG PO (08:05)
[2023-11-26 08:06] LABS: Hematocrit 30.4 % (37.0-47.0); Hemoglobin 10.1 g/dL (12.0-16.0); Mean Corp Hgb Conc. 33.2 g/dL (33.0-37.0); Mean Corpuscular Hgb 28.6 pg (27.0-31.0); Mean Corpuscular Volume 86.1 fL (81.0-99.0); Mean Platelet Volume 11.4 fL (7.4-10.4); Platelet Count 320 10^3/uL (130-400); Red Blood Cell Count 3.53 10^6/uL (4.20-5.40); Red Cell Dist. Width 14.7 % (11.5-14.5); White Blood Cell Count 7.1 10^3/uL (4.8-10.8)
[2023-11-26] MEDS: DELTASONE 40 MG PO (08:06)
[2023-11-26] MEDS: CARDIZEM 30 MG PO ×2 (08:06→21:32)
[2023-11-26] MEDS: VITAMIN D3 (cholecalciferol) 25 MCG PO (08:06)
[2023-11-26] MEDS: PEPCID 40 MG PO ×2 (08:07→21:33)
[2023-11-26 08:14] LABS: Blood Urea Nitrogen 18 mg/dl (7-17); Calcium 8.8 mg/dl (8.4-10.2); Carbon Dioxide 25 mmol/L (22-30); Chloride 108 mmol/L (98-107); Estimated Creatinine Clearance 45 ml/min; Glucose 98 mg/dl (70-99); Magnesium 2.5 mg/dl (1.6-2.3); Potassium 4.9 mmol/L (3.5-5.1); Sodium 137 mmol/L (135-145); eGFR > 60.00
--- NOTE | 2023-11-26 12:37 | W.PN.PUL3 ---
Today's Communication / Plan
-
Home O2 assessment shows she does not need oxygen upon discharge
Outpatient follow-up with repeat imaging + PFTs and discussion of biologic therapy given increased eosinophil count with uncontrolled COPD/asthma as an outpatient
Please discharge on Wixela Inhub 500-50mcg/dose + Spiriva respimat 2.5mcg/act
Please also discharge on prednisone taper, which was started at 40 mg daily on 11/25/2023, and reduce by 10 mg every fourth day until off
Finish a 7-10 course of Abx
Continue bowel regimen
No additional recommendations from pulmonary service at this time. We will sign off. Thank you for allowing us to be involved in the care of this patient and please call back with any questions.
Assessment
-
Assessment: 78-year-old female tobacco smoker with a past medical history of COPD, asthma, personal history of COVID-19, hypertension, CAD, history of RLE DVT, history of recurrent pneumonia/bronchitis and anxiety who presents with fevers, nausea
and chills. She was recently hospitalized at [facility] from 10/29 - 11/02/2023 for COPD exacerbation, treated with steroids, nebs and antibiotics. She says that since she has been discharged she has been having constipation with thin stool that were pale
colored. She has mild dry cough with SOB. She also apparently had an EGD in May of this year showing a stomach 'tear.' Here in the ER, her temperature was 103 �F, she was tachycardic to 106, RR: 18, BP 149/72 and SpO2 93% on room air. Labs
showed leukocytosis to 11.4, absolute eosinophilia of 800, serum sodium 133, trace leukocyte esterase on UA, and COVID antigen negative. Flu A/B was negative and blood cultures were collected. CT abdomen/pelvis showed dependent atelectasis with
suspected noncalcified lung nodule in the RLL measuring up to 1 cm. There also was a large amount of fecal matter throughout the colon. CXR showed suspected RML pneumonia. Vancomycin/Zosyn, Solu-Medrol and IVF with 1 L of NS 0.9% was given to the
patient. She was admitted to the hospitalist service and given lung nodule with history of COPD, pulmonary service now consulted for additional management/recommendations.
Chronic conditions [employer]: COPD, asthma, personal history of COVID-19 (March 2020), anxiety, osteoporosis, CAD, hypertension, tobacco use disorder, RLE DVT (1981), history of recurrent pneumonia/bronchitis, carotid artery stenosis, subclavian artery
stent, PAD, history of TIA, chronic lower back pain, history of Prinzmetal's angina, psoriatic arthritis, immunodeficiency, PCV
Impression:
#RLL nodule (9-10mm via Ct chest from 11/26/2023) new compared to prior CT A/P from 04/2023) --> appears to be mucoid impaction; neoplasm not ruled out but considered less likely
#Sepsis without shock - sources include stercoral colitis vs pneumonia vs UTI
#RLL consolidative opacity suspicious for pneumonia - likely due to resolving pneumonia & not an acute infection as her cough + shortness of breath have improved compared to last month when she was hospitalized at [facility]
#Acute COPD/asthma exacerbation in the setting of type II inflammation (absolute eosinophils : 800 this admission) - on Wixela and Spiriva at baseline
#Increased eosinophil count due to above
#Chronic anemia
#Nausea vomiting and constipation
#Hx of 'stomach tear'
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
Plan:
- CT chest obtained this AM showed: centrilobular emphysema with scattered upper lobe faint nodules/GGO, biapical pleural/parenchymal scarring, with right lower lobe consolidative opacity in posterior superior segment, inferior lingula + medial RML
atelectasis, with RLL 9-10mm nodular opacity and lower lobe predominant bronchial wall thickening with mucoid impaction.to evaluate remaining lung parenchyma for any additional lung nodules and to assess for suspected pneumonia
- Repeat CT chest in 3 months to assess stability of nodule
- Continue with broad-spectrum antibiotics - currently on cefepime/Flagyl s/p vancomycin/Zosyn
- Would complete a 7-10 day course of ABx
- Follow-up infectious workup with blood cultures (NGTD); urine antigens for Legionella/strep pneumonia both negative; check sputum culture if patient can submit a decent sample
- Check procal for trending power - if negative then consider stopping ABx or doing short course
- Immunoglobulin panel checked and is pending (since she carries a Hx of this and levels have not been checked in 'years')
- Check IgG subclasses as well given her Hx of IgG deficiency
- Continue spiriva and continue Advair 115mcg 2 puffs BID, and on discharge resume her home regimen but change her Wixela inhub to the 500-50mcg/dose
- prn nebulized bronchodilators
- Maintain SpO2 >88-94% with supplemental O2 as needed
- Incentive spirometer encouraged
- Bowel regimen
- Replete electrolytes with K>4, Mg>2
- Maintain euglycemia with goal BG >100 and <180
- DVT ppx
- outpatient follow up with our office - she should obtain repeat imaging in next 3 months to re-assess RLL nodule; she also is a candidate for biologic therapy considering her absolute eosinophil count is 800 with uncontrolled COPD/asthma symptoms
while on triple inhaler therapy, frequently requiring antibiotics + steroids as an outpatient. It appears that she is on Wixela Inhub 250mcg, so first thing we should do is maximize this to the 500-50 mcg/dose. She should be discharged on this and
then see me in the office where we can discuss biologic therapy if symptoms are still uncontrolled. We also need up-to-date PFTs.
No additional pulmonary recommendations at this time. Pulmonary service will now sign off. Thank you for allowing us to be involved in the care of this patient. Please reconsult if there are any additional questions/concerns, or if patient's
respiratory status deteriorates.
Total time spent today was 35 minutes for this encounter. Time includes reviewing laboratory test/imaging results, reviewing pertinent medical records, obtaining and reviewing medical history, performing an appropriate exam, ordering medications,
tests and procedures. Time also includes documentation of this encounter, coordinating patient care and communicating with other healthcare professionals. Total time does not include separately billed tests performed on this date of service.
Data:
CXR 11-23-2023: New findings suggesting mild right middle lobe pneumonia.
CT Chest 11-26-2023:
Biapical pleural/parenchymal scarring, right greater than left, right apical segment likely accounting for opacity seen on recent chest radiograph.
Superior segment right lower lobe small irregular opacity likely accounting for additional opacity seen on more recent chest radiograph. Recommend follow-up chest CT to confirm resolution, findings at least in part could represent some scarring.
Additional areas of scarring noted, as detailed above.
Approximate 0.6-0.7 cm somewhat oblong-shaped left lower lobe pulmonary nodule, indeterminate.
Coronary artery calcifications.
CT Abd/Pelvis with IV contrast 11-23-2023:
Spiculated noncalcified right lower lobe pulmonary nodule. New. PET imaging recommended.
Large amount of fecal material throughout the colon. Progressed
Hepatic cysts. Stable
Diverticulosis. Stable
Outpatient [facility]MA data:
PFT:
������ John 10/17/20: FVC 2.46/93%, FEV1 1.19/60%, ratio 48. When compared to June, FEV1 continues to decline
�������PFT 06/20/20: FVC 2.54/100%, FEV1 1.34/70%, ratio 54. TLC 5.90/133%, RV 3.07/156%, RV/TLC ratio 52, DLCO 9.02/47%.
6 MWT:
������ 6MWT 10/17/20: Total distance 864 feet, 97% room air, heart rate 100, dyspnea scale 0/10
�������6MWT 06/20/20: Total distance 900 feet, 91% on room air, heart rate 119, dyspnea scale 2/10. Complaining of back pain.
RADIOGRAPHIC STUDIES:
������ CT chest 04/02/20: No evidence of pulmonary embolism. Findings compatible with emphysema. Minor right lower lobe opacity most likely representing segmental atelectasis, minimal pneumonia.
�������CXR 04/01/20: no acute disease of the chest
�������CT chest 06/13/15: Moderate emphysema, left subclavian stent.
CARDIAC STUDIES:
������ Echo 07/19/20: hyperdynamic LV, EF 75%. normal RV, No significant valvar disease. normal PAP
�������Echo 12/27/15: Normal biventricular function, right heart pressures could not be determined
�������LHC 03/09/14: no significant coronary disease. Left subclavian artery stenosis with stent placement.
LABS:
������ 04/01/20: D-dimer 0.67, hemoglobin 15.9,normal serum bicarbonate, creatinine, calcium, liver function
�������positive Covid test at [facility] 03/26/2020
�������Son with positive Covid test.
Subjective Data
-
Date of Service:
Date of Service: November 26, 2023
Chief Complaint: Pulmonary Follow Up
Subjective:
Patient seen and evaluated today at bedside. Afebrile overnight. CT chest checked this morning -shows centrilobular emphysema with scattered upper lobe faint nodules/GGO, with posterior right upper lobe consolidative opacity, inferior lingula +
medial RML atelectasis, with RLL 9-10mm nodular opacity and lower lobe predominant bronchial wall thickening with mucoid impaction. I reviewed the CT chest findings with the patient. She feels well, she is now having loose stool and feels better.
She is currently on room air breathing comfortably. Walk test performed today and aimee SaO2 was 95% with ambulation after walking 100 feet. Patient denies chest pain, headache, abdominal pain, nausea, fevers or chills.
Review of Systems
General: Other (Negative unless mentioned above)
Objective Data
Data Reviewed
Vital Signs / I&O / Oxygen:
Vital Signs
Temp Pulse Resp BP Pulse Ox
98.2 F 72 18 127/64 96
11/26/23 07:27 11/26/23 08:07 11/26/23 08:07 11/26/23 08:06 11/26/23 08:07
Intake and Output
11/25/23 11/26/23 11/27/23
06:59 06:59 06:59
Intake Total 1939 960 / 960
Balance 1939 960 / 960
SaO2 96
Physical Exam
General: Respiratory Distress (Negative), Comfortable, Chills (Negative) and Sweats (Negative)
HEENT: Normocephalic and Anicteric
Cardiovascular: S1-S2 and Peripheral Edema (Negative)
Respiratory: Wheeze (Negative), Rhonchi (Negative), Non-Labored Respirations and Other (Coarse breath sounds bilaterally)
GI: Soft, Non Distended, Non Tender and Normal Bowel Sounds
Neurology: AO x 3 and Tremors (Negative)
Skin: Warm and Dry
Labs/Micro/Reports
Lab Data
11/26/23 06:40
11/26/23 06:40
Microbiology
11/23/23 17:26 Blood/Venous Blood Culture - Preliminary
No Growth in 48 hours- Final report to follow
11/23/23 17:10 Blood/Venous Blood Culture - Preliminary
No Growth in 48 hours- Final report to follow
11/25/23 14:41 Urine Legionella Urinary Antigen - Final
Negative for Legionella pneumophila Serogroup 1 antigen.
A negative result does not rule out the possiblity of
Legionella infection due to other serogroups or species of
Legionella. Clinical correlation is recommended.
11/25/23 14:41 Urine Streptococcus pneumoniae Antigen (M - Final
Negative for Streptococcus pneumoniae antigen.
A negative result does not exclude infection with
Streptococcus pneumoniae. Clinical correlation is
recommended.
11/23/23 16:24 Nasal Swab Influenza Types A & B ([facility]) - Final
Negative for Influenza A & B, NAAT
Negative results must be combined with clinical observations
and patient history.
Nucleic Acid Amplification test (NAAT)performed on the
[employer] platform.
[2023-11-26 15:19] VITALS: BP 146/59
[2023-11-26] MEDS: CRESTOR 5 MG PO (16:50)
[2023-11-26] MEDS: SENOKOT PO (21:33)
[2023-11-26] MEDS: ZETIA 10 MG PO (21:33)
[2023-11-26] MEDS: BENADRYL 25 MG PO (21:33)
[2023-11-26 23:00] VITALS: BP 141/57
[2023-11-27 00:04] VITALS: BP 141/57
[2023-11-27] MEDS: SYNTHROID 75 MCG PO (06:19)
[2023-11-27 06:56] LABS: Hematocrit 28.7 % (37.0-47.0); Hemoglobin 9.7 g/dL (12.0-16.0); Mean Corp Hgb Conc. 33.8 g/dL (33.0-37.0); Mean Corpuscular Hgb 28.4 pg (27.0-31.0); Mean Corpuscular Volume 83.9 fL (81.0-99.0); Mean Platelet Volume 11.5 fL (7.4-10.4); Platelet Count 315 10^3/uL (130-400); Red Blood Cell Count 3.42 10^6/uL (4.20-5.40); Red Cell Dist. Width 14.7 % (11.5-14.5); White Blood Cell Count 8.3 10^3/uL (4.8-10.8)
[2023-11-27 07:01] LABS: Blood Urea Nitrogen 20 mg/dl (7-17); Calcium 9.1 mg/dl (8.4-10.2); Carbon Dioxide 27 mmol/L (22-30); Chloride 108 mmol/L (98-107); Estimated Creatinine Clearance 45 ml/min; Glucose 91 mg/dl (70-99); Magnesium 2.6 mg/dl (1.6-2.3); Phosphorus 3.6 mg/dl (2.5-4.5); Potassium 4.4 mmol/L (3.5-5.1); Sodium 138 mmol/L (135-145); eGFR > 60.00
--- NOTE | 2023-11-27 07:10 | W.PN.HOSP.TC ---
Today's Communication/Plan
-
discharge
Assessment / Plan
Assessment / Plan
Physical Exam
General: Well Developed, Well Nourished and No Apparent Distress
HEENT: NormoCephalic, Moist mucous membranes and Atraumatic
Respiratory: Clear
Cardiac: S1/S2 and Regular Rhythm; No Murmur or Rub
GI: Soft, Normal Bowel Sounds, LLQ Tenderness Distended; No Organomegaly
Musculoskeletal: No Clubbing, No Cyanosis and No Edema
Skin: No Rash
Neuro: AOx3
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
artery stenosis, subclavian artery stent, hypertension, hyperlipidemia, peripheral arterial disease status post stent,, TIA, DVT, chronic lower back pain, presenting with fever since 11/06. She has been having daily fevers as high as 101.
Patient states bc was admitted to [facility] from 10/29 to 11/01 for COPD exacerbation treated with steroids, nebulizers and antibiotics.
Since that admission she has been having issues with constipation. She is having daily bowel movements with stools very thin and hard and pale-colored. She has pain with straining. She has abdominal pain with pain in her lower quadrants of her
abdomen and increased abdominal distention. She denies any blood in the stool or black stool.
She was admitted here in April for rectal bleeding thought to be secondary to diverticulosis/colitis. She had a EGD and colonoscopy in May of this year which apparently showed a stomach tear and she was started on Pepcid. She was started on
MiraLAX at that time which she has been taking daily.
She does have some mild dry cough and shortness of breath which is improved compared to her recent hospitalization. She denies any chest pain.
She no longer smokes. She denies alcohol.
# Sepsis (fever, leukocytosis, tachycardia) source likely infection from stercoral colitis
-CT abdomen pelvis shows spiculated noncalcified right lower lobe pulmonary nodule for which PET scan is recommended, large amount of fecal material throughout the colon which is progressed
-COVID-negative, influenza negative
-follow blood cultures
-IV fluids completed
-empiric Vancomycin/Zosyn switched to cefepime/Flagyl to convert to oral keflex (patient reports not being able to tolerate cedinir despite tolerating it this morning) and flaygyll total 7 days abx planned
-GI consult appreciated cont bowel regimen, low residue diet, constipation resolved, GI since signed off
# History of 'stomach tear'
-as seen on recent EGD/colonoscopy
#Possible PNA noted on CXR
# Incidental discovery of right lower lobe pulmonary nodule
-Will require outpatient PET scan
-abx as above
-Pulm eval appreciated steroid taper
-home oxygen assessment appreciated not needs
History of diverticulitis status post sigmoid resection in 1997
History of rectal bleeding secondary to colitis/diverticulosis
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
COPD
-Continue inhalers
Tobacco use disorder
History of thyroidectomy
Hypothyroidism
-Continue levothyroxine
Bilateral carotid artery stenosis
-Continue aspirin
History of subclavian artery stent
Essential hypertension
-Continue diltiazem
-Continue lisinopril
Hyperlipidemia
-Continue Zetia, statin
Peripheral arterial disease status post stent
History of TIA
History of DVT
Chronic lower back pain
-Continue Percocet
History of sacroiliac joint injection/right total hip replacement
Full code
DVT prophylaxis�heparin
Medically stable for discharge home with outpatient follow up recommendations.
Total Time Preparing Discharge ___50____ minutes including examination of the patient, summary of the hospital stay, instructions for continuing care to all relevant caregivers; and preparation of discharge records, prescriptions, and referral
forms if necessary.
Anticipated Discharge: Today
Subjective/Interval History
-
Date of Service: November 27, 2023
Seen and examined at bedside in no acute distress. Reports overall feeling well. Eager to go home. Denies new acute issues at this time.
Objective Data
-
Labs:
Laboratory Results
11/27/23
06:30
WBC 8.3
Hgb 9.7 L
Hct 28.7 L
Plt Count 315
Sodium 138
Potassium 4.4
Chloride 108 H
Carbon Dioxide 27
BUN 20 H
Creatinine 0.8
Glucose 91
Calcium 9.1
Vital Signs:
Vital Signs
Temp Pulse Resp BP Pulse Ox
98.1 F 74 18 141/57 94
11/26/23 23:00 11/26/23 23:00 11/26/23 23:00 11/26/23 23:00 11/27/23 02:06
I&O
11/26/23 11/27/23 11/28/23
06:59 06:59 06:59
Intake Total 960 / 960 480 / 480
Balance 960 / 960 480 / 480
[2023-11-27 07:12] LABS: Procalcitonin < 0.05 ng/ml (0.0-0.25)
[2023-11-27] MEDS: DELTASONE 40 MG PO (07:32)
[2023-11-27] MEDS: VITAMIN D3 (cholecalciferol) 25 MCG PO (07:32)
[2023-11-27] MEDS: FLAGYL 500 MG PO ×2 (07:32→15:34)
[2023-11-27] MEDS: ASPIR LOW (ENTERIC COATED) 81 MG PO (07:32)
[2023-11-27] MEDS: CARDIZEM 30 MG PO (07:33)
[2023-11-27] MEDS: PEPCID 40 MG PO (07:33)
[2023-11-27] MEDS: NICODERM TRANSDERMAL 14 MG TRANSDERM (07:34)
[2023-11-27] MEDS: ZYRTEC 10 MG PO (07:34)
[2023-11-27] MEDS: OMNICEF 300 MG PO (07:34)
[2023-11-27] MEDS: ZESTRIL 5 MG PO (07:34)
[2023-11-27 07:38] VITALS: BP 148/60
[2023-11-27] MEDS: MIRALAX 17 GRAMS PO (07:42)
[2023-11-27] MEDS: ADVAIR HFA 115/21 MCG INHALER 2 PUFF INH (08:06)
[2023-11-27] MEDS: SPIRIVA RESPIMAT 2.5 MCG 1 PUFF INH (08:07)
--- NOTE | 2023-11-27 14:27 | W.DCSUMMARY ---
Discharge Summary
Discharge Data
Date of Admission: 11/23/23
Date of Discharge: 11/27/23
-
Pending Results: Yes
Additional Pending Results:
immunoglobulin panel results to be followed with Pulmonology
Discharge Plan
-
Patient Disposition: Home (Routine Discharge)
Discharge Diagnosis/Procedures: Sepsis source likely infection from stercoral colitis since resolved
Possible Pneumonia
Pulmonary Nodules
COPD
Hypothyroidism
Bilateral Carotid Artery Stenosis
Hypertension
Hyperlipidemia
Peripheral Artery Disease
Chronic Low Back Pain
Mild Anemia
COPD/Asthma Exacerbation
Condition: Good
Diet: Low Residue
Additional Diets: low residue x 1 week then slowly restart fiber in diet
Activity: As tolerated
Driving Restrictions: As prior to admission
Bathing Restrictions: None
Blood Work: Repeat CBC with primary care provider in 1 week of discharge
Others Tests: Follow up with pulmonology for repeat imaging PET scan and Pulmonary Function Tests
Activity Restrictions/Additional Instructions:
Please follow up with primary care provider in 1 week of discharge and, in 3-4 weeks of discharge, follow up with Pulmonary and your GI doctor.
Keflex and Flagyll have been prescribed to treat infectious colitis and possible pneumonia. Last day of antibiotics is 11/29/23
Prednisone taper has been prescribed for COPD/asthma exacerbation:
40 mg daily x1 day, then 30 mg daily x 3 days, then 20 mg daily x3 days, then 10 mg daily x3 days, then stop.
Please take medications as prescribed/recommended and follow up with primary care provider and/or other healthcare provider involved in your care for further adjustment to your medication regimen as necessary.
Referrals:
Torito Collins MD [Active] - in three to four weeks
Aria Chu MD [Family Provider] - in one week
Prescriptions:
New
prednisone 10 mg Tablet
See Rx Instructions .ROUTE .COMPLEX Qty: 22 0RF
Rx Instructions:
Take By Mouth:
40 mg daily x1 day, 30 mg daily x3 days,
20 mg daily x3 days, 10 mg daily x3 days.
metronidazole 500 mg Tablet
500 mg PO TID Qty: 8 0RF
Rx Instructions:
Last day antibiotics 11/28
cephalexin 500 mg Capsule
500 mg PO BID Qty: 5 0RF
Continued
cetirizine 10 MG tablet
10 mg PO DAILY
diltiazem HCl 30 MG tablet
30 mg PO BID
diphenhydramine HCl [Banophen] 25 MG capsule
25 mg PO HS
rosuvastatin 5 MG tablet
5 mg PO MOWEFR
Hold Instructions: Resume on 04/26/23. Resume during the day after finishing Paxlovid
aspirin 81 MG tablet,delayed release (DR/EC)
81 mg PO DAILY
fluticasone propion-salmeterol [Wixela Inhub] 250-50 mcg/dose Blister With Device
1 inh INHALATION R BID
Hold Instructions: Resume on 04/26/23. Resume the day after finishing Paxlovid.
levothyroxine 75 mcg Tablet
75 mcg PO DAILY
oxycodone-acetaminophen 5-325 mg Tablet
0.5 tab PO BIDPRN PRN (Reason: back pain)
Hold Instructions: Resume on 04/26/23. Resume the day after finishing Paxlovid
Patient Comments:
11/23/2023: last filled 03/17/23, 60 tabs for 30 days from [id number]
ezetimibe 10 mg Tablet
10 mg PO HS
cholecalciferol (vitamin D3) 25 mcg (1,000 unit) Tablet
25 mcg PO DAILY
Spiriva Respimat 2.5 mcg/actuation Mist
1 inh INHALATION R BID
lisinopril 5 MG tablet
5 mg PO DAILY
polyethylene glycol 3350 [Miralax] 17 gram Powder In Packet
8.5 g PO NOON
famotidine 40 mg tablet
40 mg PO BID
nicotine 14 mg/24 hr Patch 24 Hour
1 patch TRANSDERMAL DAILY
Discharge Orders:
Discharge Patient (As Directed); Ordered 11/27/23
Ordered By: Otis Garcia
Discharge Date and Time
Print Language: IRANIAN
--- NOTE | 2023-11-27 14:44 | CM ---
CM reviewed chart and noted dc order
Bedside meeting with pt
No dc needs noted
Dtr already on her way for ride home
IMM verbally reviewed- copy provided
Discharge Disposition- home, no needs- dtr transport
[2023-11-27 15:51] VITALS: BP 153/71
[2023-11-28 23:21] LABS: IgA 108 mg/dl (70-400)
[2023-11-28 23:23] LABS: IgG < 270 mg/dl (700-1600); IgM < 25 mg/dl (40-230)
[2023-11-29 06:44] LABS: IgG Subclass 1 136 mg/dL (240-1118); IgG Subclass 2 59 mg/dL (124-549); IgG Subclass 3 24 mg/dL (21-134); IgG Subclass 4 7 mg/dL (1-123)
== END 2023-11-27 16:14 | disposition home or self-care (01) | DRG 871 ==
LOC: 4 EAST ACU 20:56
PROVIDERS: ADMITTING PHYSICIAN Hospitalist; ATTENDING PHYSICIAN Internal Medicine; CONSULT PHYSICIAN Internal Medicine; CONSULT PHYSICIAN Internal Medicine Critical Care Medicine; EMERGENCY PHYSICIAN Emergency Medicine; FAMILY PHYSICIAN Family Medicine
DX: A41.9 Sepsis, unspecified organism (principal); J18.9 Pneumonia, unspecified organism; D80.3 Selective deficiency of immunoglobulin G [IgG] subclasses; J44.1 Chronic obstructive pulmonary disease with (acute) exacerbation; A09 Infectious gastroenteritis and colitis, unspecified; J98.11 Atelectasis; I10 Essential (primary) hypertension; E89.0 Postprocedural hypothyroidism; I65.23 Occlusion and stenosis of bilateral carotid arteries; I73.9 Peripheral vascular disease, unspecified; E78.5 Hyperlipidemia, unspecified; G89.29 Other chronic pain; K59.00 Constipation, unspecified; M54.50 Low back pain, unspecified; R91.1 Solitary pulmonary nodule; D45 Polycythemia vera; F41.9 Anxiety disorder, unspecified; I25.10 Atherosclerotic heart disease of native coronary artery without angina pectoris; M81.0 Age-related osteoporosis without current pathological fracture; D64.9 Anemia, unspecified; F17.210 Nicotine dependence, cigarettes, uncomplicated; Z95.828 Presence of other vascular implants and grafts; Z92.3 Personal history of irradiation; Z86.73 Personal history of transient ischemic attack (TIA), and cerebral infarction without residual deficits; Z86.718 Personal history of other venous thrombosis and embolism; Z79.82 Long term (current) use of aspirin; Z79.890 Hormone replacement therapy; Z79.891 Long term (current) use of opiate analgesic; Z86.16 Personal history of COVID-19
CPT/HCPCS: 71046; 71250; 74018; 74177; 80048; 80053; 81003; 81015; 82784; 82787; 83605; 83690; 83735; 84100; 84145; 85025; 85027; 87040; 87070; 87449; 87502; 87811; 87899; 94640; 96365; 96367; 96375; 99285; Q9967

== ENCOUNTER → 2023-12-21 14:16 | Outpatient (REF) | payer OTHER, SELFPAY | LOC: DHVS 14:16 | PROVIDERS: ATTENDING PHYSICIAN Surgery Vascular Surgery; FAMILY PHYSICIAN Family Medicine; REFERRING PHYSICIAN Internal Medicine Gastroenterology | DX: I65.23 Occlusion and stenosis of bilateral carotid arteries (principal); K59.09 Other constipation | CPT/HCPCS: 74018; 93880 ==

== ENCOUNTER → 2024-02-24 15:53 | Outpatient (REF) | payer OTHER, SELFPAY | LOC: MRI 3T 15:53 | PROVIDERS: ATTENDING PHYSICIAN Orthopaedic Surgery; FAMILY PHYSICIAN Family Medicine | DX: S46.012A Strain of muscle(s) and tendon(s) of the rotator cuff of left shoulder, initial encounter (principal) | CPT/HCPCS: 73221 ==

== ENCOUNTER → 2024-03-03 12:56 | Outpatient (REF) | payer OTHER, SELFPAY | LOC: RAD 12:56 | PROVIDERS: ATTENDING PHYSICIAN Nurse Practitioner Adult Health; FAMILY PHYSICIAN Family Medicine | DX: R91.1 Solitary pulmonary nodule (principal) | CPT/HCPCS: 71250 ==

== ENCOUNTER 2024-06-27 16:07 | Inpatient (IN) | payer OTHER, SELFPAY ==
[2024-06-27] VITALS (7 sets, daily range): BP systolic 100–166; BP diastolic 50–98; BMI 22.7; BMI 22.3
[2024-06-27 12:49] LABS: % Basophils 0.3 % (0-2); % Eosinophils 0.1 % (0-6); % Immature Granulocytes 0.5 % (0-0.5); % Lymphocytes 8.2 % (20.5-51.1); % Neutrophils 88.9 % (42.2-75.2); Absolute Basophils 0.1 10^3/uL (0-0.2); Absolute Immature Granulocytes 0.1 10^3/uL (0-0.05); Absolute Lymphocytes 1.5 10^3/uL (1.2-3.4); Absolute Monocytes 0.4 10^3/uL (0.1-0.6); Absolute Neutrophils 16.5 10^3/uL (1.4-6.5); Hematocrit 44.4 % (37.0-47.0); Hemoglobin 14.8 g/dL (12.0-16.0); Mean Corp Hgb Conc. 33.3 g/dL (33.0-37.0); Mean Corpuscular Hgb 30.6 pg (27.0-31.0); Mean Corpuscular Volume 91.7 fL (81.0-99.0); Mean Platelet Volume 10.8 fL (7.4-10.4); Nucleated Red Blood Cells % 0 %; Platelet Count 272 10^3/uL (130-400); Red Blood Cell Count 4.84 10^6/uL (4.20-5.40); Red Cell Dist. Width 14.9 % (11.5-14.5); White Blood Cell Count 18.5 10^3/uL (4.8-10.8)
[2024-06-27 12:58] LABS: PT 12.5 Sec (11.4-14.6)
[2024-06-27 13:08] LABS: ALT (SGPT) 27 U/L (0-35); AST (SGOT) 22 U/L (14-36); Alkaline Phosphatase 100 U/L (38-126); Blood Urea Nitrogen 19 mg/dl (7-17); Calcium 9.5 mg/dl (8.4-10.2); Carbon Dioxide 27 mmol/L (22-30); Chloride 106 mmol/L (98-107); Glucose 106 mg/dl (70-99); Potassium 4.2 mmol/L (3.5-5.1); Sodium 139 mmol/L (135-145); Total Bilirubin 0.6 mg/dl (0.2-1.3); Total Protein 6.1 g/dl (6.3-8.2); eGFR > 60.00
[2024-06-27 13:18] LABS: COVID-19 Antigen Negative (Negative)
[2024-06-27 13:19] LABS: Troponin I < 0.012 ng/ml
[2024-06-27] MEDS: ATROVENT NEBULES 1 MG INH (13:52)
[2024-06-27] MEDS: VENTOLIN NEBULES 10 MG INH (13:52)
[2024-06-27] MEDS: DECADRON 6 MG IV (14:10)
[2024-06-27 14:31] LABS: Venous Blood Gas B.E. 0.3 mmol/L (-4 to +4); Venous Blood Gas HCO3 24.6 mmol/L (22-27); Venous Blood Gas O2 Sat % 99.1 %; Venous Blood Gas pCO2 38 mmHg (35-48); Venous Blood Gas pH 7.42 (7.32-7.43); Venous Blood Gas pO2 152 mmHg (30-50)
--- NOTE | 2024-06-27 15:01 | ED.GENMED ---
History of Present Illness
General
Chief Complaint: Breathing Problem
Time Seen by Provider: 06/27/24 13:09
History of Present Illness
History of Present Illness:
78-year-old female with history of COPD presents to the emergency department for evaluation of persistent shortness of breath and wheezing, she was seen last week by her rod tape operator for the symptoms and started on a Medrol Dosepak as well as
azithromycin. She has 1 further dose of Medrol Dosepak and completed the azithromycin this morning. Feels that her symptoms are not improving. Denies any significant chest pain, fever, chills, or sweats. Does have a productive cough with
purulent sputum
Past History
Past History
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
ED Past Surgical History: Cardiac (Subclavian stenosis stenting)
Social History
Tobacco: Smoker
Alcohol: None
Drug: None
Personal:
Living: with family
Employment: Retired
Family History
Family History: Other (Reviewed and Noncontributory)
Review of Systems
Review of Systems
Allergies reviewed?: Yes
All Other Systems: ROS reviewed and negative except as documented in HPI and ROS
Phy Exam
Physical Exam
Physical Exam:
GEN: Well appearing, NAD, WDWN
HEENT: Oral mucosa moist, no scleral icterus
Cardiac: Regular rate
Lung: Tachypneic with conversational dyspnea, expiratory wheezes heard throughout all lung schultz
MSK: No gross deformity or injuries
Skin: Good color, no pallor or jaundice, no rashes
Neuro: AO x3, moves all extremities freely
Psych: Calm, cooperative
Scores
Heart Failure Risk
Heart Failure Risk Score: Not Applicable
Sepsis
Sepsis Screening
Sepsis Assessment: Sepsis Ruled Out
Sepsis Screen
Sepsis Screen: Sepsis Ruled Out
Date: 06/27/24
Time: 15:23
Course
Orders/Labs/Results
Orders:
Orders
06/27/24 12:08
CR Chest - 2 Views Urgent
Comment:
Reason For Exam: SOB
06/27/24 12:09
EKG [Electrocardiogram (*1)] Urgent
Reason for Study: Shortness of Breath
EKG- Treatment ONCE
06/27/24 12:29
Comprehensive Metabolic Panel Urgent
Prothrombin Time Urgent
Troponin I Urgent
06/27/24 12:30
COVID-19 Antigen Urgent
Source: Nasal Swab
Complete Blood Count/With Diff Urgent
Influenza A+B Rapid Molecular Urgent
EMANUEL Source: Nasal Swab
Specimen Description:
06/27/24 13:37
Albuterol Sulfate [Ventolin Nebules] 10 mg INH R NOW STA
Dexamethasone Sod Phosphate [Decadron] 6 mg IV NOW STA
Ipratropium Nebs [Atrovent Nebules] 1 mg INH R NOW STA
06/27/24 14:09
Venous Blood Gas Urgent
%Oxygen/Room Air: 97
Abnormal Lab Results
06/27/24 06/27/24 06/27/24
12:29 12:30 14:09
WBC 18.5 H 10^3/uL
(4.8-10.8)
RDW 14.9 H %
(11.5-14.5)
MPV 10.8 H fL
(7.4-10.4)
Abs Immat Gran (auto) 0.1 H 10^3/uL
(0-0.05)
Absolute Neuts (auto) 16.5 H 10^3/uL
(1.4-6.5)
Neutrophils % 88.9 H %
(42.2-75.2)
Lymphocytes % 8.2 L %
(20.5-51.1)
VBG pO2 152 H mmHg
(30-50)
BUN 19 H mg/dl
(7-17)
Glucose 106 H mg/dl
(70-99)
Total Protein 6.1 L g/dl
(6.3-8.2)
06/27/24 12:30
06/27/24 12:29
Vital Signs
Initial and Last Documented VS:
Initial Vital Signs
Temp Pulse Resp BP Pulse Ox
98.1 F 107 24 166/79 97
06/27/24 12:18 06/27/24 12:18 06/27/24 12:18 06/27/24 12:18 06/27/24 12:18
Last Documented Vital Signs
Temp Pulse Resp BP Pulse Ox
98.1 F 107 24 137/70 93
06/27/24 12:18 06/27/24 12:18 06/27/24 12:18 06/27/24 14:00 06/27/24 14:00
MDM/Problems Addressed
MDM/Problems Addressed:
Patient was given hour-long nebulizer treatment as well as IV steroids, reassessment with no significant improvement in work of breathing. Although she is not hypoxic and there is no evidence of hypercapnia I do not feel it is reasonable to
discharge this patient given that she had completed a full course of outpatient therapy. Will admit to the hospitalist service. Leukocytosis is most likely on the basis of recent steroid administration, chest x-ray is negative for acute infiltrate
*Critical Care Note
Total Time (30-74mins, 75-104mins- exclusive of procedures): Not Applicable
ED Attending Note
-
Portions of this chart may have been created with voice recognition software.� Occasional wrong word or��sound alike� substitutions may have occurred due to the inherent limitations of voice recognition software.
Discharge Plan
Departure
Patient Disposition: Admit
Date of Disposition: 06/27/24
Time of Disposition: 15:01
Admit to: Med/Surg
Presentation/result/management discussed w/ accepting MD/DO: Hospitalist
Discharge Problem:
COPD exacerbation
Prescriptions:
No Action
cetirizine 10 MG tablet
10 mg PO DAILY
diltiazem HCl 30 MG tablet
30 mg PO BID
diphenhydramine HCl [Banophen] 25 MG capsule
25 mg PO HS
rosuvastatin 5 MG tablet
5 mg PO MOTUTHFR
aspirin 81 MG tablet,delayed release (DR/EC)
81 mg PO DAILY
fluticasone propion-salmeterol [Wixela Inhub] 250-50 mcg/dose Blister With Device
1 inh INHALATION R BID
levothyroxine 75 mcg Tablet
75 mcg PO DAILY
oxycodone-acetaminophen 5-325 mg Tablet
0.5 tab PO BIDPRN PRN (Reason: back pain)
Patient Comments:
11/23/2023: last filled 03/17/23, 60 tabs for 30 days from [id number]
ezetimibe 10 mg Tablet
10 mg PO HS
cholecalciferol (vitamin D3) 25 mcg (1,000 unit) Tablet
25 mcg PO DAILY
Spiriva Respimat 2.5 mcg/actuation Mist
1 inh INHALATION R BID
lisinopril 5 MG tablet
5 mg PO DAILY
polyethylene glycol 3350 [Miralax] 17 gram Powder In Packet
8.5 g PO NOON
famotidine 40 mg tablet
40 mg PO BID
azithromycin 250 mg tablet
250 mg PO USEASDIRECTD
Patient Comments:
06/27/2024: Dr Chaidez prescribed on wed for MoWeFr sig for 90 days, on wed Dr Rebolledo changed to [facility] directions. Pt unsure if she should go back to 3x weekly directions.
methylprednisolone 4 mg tablets,dose pack
4 mg PO PER PKG DIR
Referrals:
Aria Chu MD [Family Provider] -
Interventions
Interventions:
*Risk Screen - Suicide Last Done: 06/27/24 12:18
*General Assessment Last Done: 06/27/24 12:18
*Neglect/Abuse Screening Last Done: 06/27/24 12:18
*ED COVID-19 Vaccine History Last Done: 06/27/24 12:18
ED- Cardiac Assessment Last Done: 06/27/24 13:17
ED- Pulmonary Assessment Last Done: 06/27/24 13:17
Discharge Date and Time
Print Language: BRITISH
--- NOTE | 2024-06-27 15:02 | HPS.HSE ---
Family Physician
-
Family Physician: Aria Chu
Chief Complaint
-
sob
History of Present Illness
78-year-old with past medical history for COPD, TIA, DVT, hypertension, hypothyroidism presented to us with short of breath, productive cough with yellow to whitish sputum since last Wednesday. Patient was evaluated by pulmonology on Wednesday.
Patient was prescribed Trelegy, which made her symptoms worse. Patient stated wheezing and worsening short of breath. Patient was started on Medrol pack and Zithromax on Wednesday. Patient stated worsening short of breath, mid midsternal chest pain,
and cough. She had a low-grade temp. patient denied headache, dizzy or syncope. Patient denied abdominal pain, nausea, vomiting or diarrhea. Patient denied dysuria hematuria.
Patient received nebulizer treatment, Decadron in ER admitting for further management of COPD.
Medical History
Past Medical History
Past Medical History: Reports Other
Additional Past Medical History:
Hyperlipidemia
Hypertension
PAD
COPD
Immunoglobin deficiency
Pneumonia
Pulmonary nodule
DVT
Chronic bronchitis
TIA
Bilateral carotid stenosis
Past Surgical History: Reports Other
Additional Past Surgical History:
Appendectomy
Cholecystectomy
Thyroidectomy
Parathyroid removal
Left subclavian artery stent
Cardiac ablation
Right hip replacement
Social History
Tobacco: Former Smoker
Alcohol: None
Drug: None
Living: With Family
Family History
Family History: Not pertinent
Allergies / Home Medications
Allergies reflects when Allergies were last updated in [employer].
Home Medications with original date entered in [employer]
Allergy/Medication List:
Allergies
Allergy/AdvReac Type Severity Reaction Status Date / Time
bupropion HCl Allergy Hives / Verified 06/27/24 12:23
[From Wellbutrin] throat
tightness
dexlansoprazole Allergy Vomiting Verified 06/27/24 12:23
[From Dexilant]
duloxetine [From Cymbalta] Allergy Nausea, Verified 06/27/24 12:23
'burning'
tongue
house dust Allergy Wheezing, Verified 06/27/24 12:23
Sneezing
hydrochlorothiazide Allergy Burning of Verified 06/27/24 12:23
tongue
immune globulin,gamma (IgG) Allergy Serum Verified 06/27/24 12:23
human Sickness
Iodinated Contrast Media Allergy Hives Verified 06/27/24 12:23
iohexol [From Omnipaque] Allergy 300-HEAT Verified 06/27/24 12:23
ACCROSS
CHEST AND
1 HIVE
06/29/1997
Penicillins Allergy as a Verified 06/27/24 12:23
child;
tolerated
cephalexin
Sulfa (Sulfonamide Allergy Hives Verified 06/27/24 12:23
Antibiotics)
venom-honey bee Allergy Anaphylaxis Verified 06/27/24 12:23
[bee venom (honey bee)]
Home Medications
cetirizine 10 mg tablet 10 mg PO DAILY Allergies 03/06/16
diltiazem HCl 30 mg tablet 30 mg PO BID Heart disease/condition 03/06/16
diphenhydramine HCl 25 mg capsule (Banophen) 25 mg PO HS sleep 04/03/19
aspirin 81 mg tablet,delayed release 81 mg PO DAILY Blood clot prevention/tx 04/01/20
rosuvastatin 5 mg tablet 5 mg PO MOTUTHFR High cholesterol 04/01/20
cholecalciferol (vitamin D3) 25 mcg (1,000 unit) tablet 25 mcg PO DAILY Supplement 04/20/23
ezetimibe 10 mg tablet 10 mg PO HS High Cholesterol 04/20/23
fluticasone 250 mcg-salmeterol 50 mcg/dose blistr powdr for inhalation (Wixela Inhub) 1 inh inhalation R BID Lung/Breathing Issues 04/20/23
levothyroxine 75 mcg tablet 75 mcg PO DAILY Thyroid 04/20/23
lisinopril 5 mg tablet 5 mg PO DAILY Blood Pressure 04/20/23
oxycodone-acetaminophen 5 mg-325 mg tablet 0.5 tab PO BIDPRN PRN back pain 04/20/23
tiotropium bromide 2.5 mcg/actuation mist for inhalation (Spiriva Respimat) 1 inh inhalation R BID Lung/Breathing Issues 04/20/23
famotidine 40 mg tablet 40 mg PO BID fluid retention/edema 11/23/23
polyethylene glycol 3350 17 gram oral powder packet (Miralax) 8.5 g PO NOON constipation 11/23/23
azithromycin 250 mg tablet 250 mg PO USEASDIRECTD 06/27/24
methylprednisolone 4 mg tablets in a dose pack 4 mg PO PER PKG DIR 06/27/24
Review of Systems
-
Constitutional: Reports No Symptoms
EENT: Reports No Symptoms
Respiratory: Reports Cough and Trouble Breathing
Cardiac: Reports Chest Pain
Abdomen/GI: Reports No Symptoms
: Reports No Symptoms
Musculoskeletal: Reports No Symptoms
Skin: Reports No Symptoms
Neurological: Reports No Symptoms
Endocrine: Reports No Symptoms
Hematologic/Lymphatic: Reports No Symptoms
Psych: Reports No Symptoms
Physical Exam
Vital Signs
Vital Signs
Temp Pulse Resp BP Pulse Ox
98.1 F 107 24 137/70 93
06/27/24 12:18 06/27/24 12:18 06/27/24 12:18 06/27/24 14:00 06/27/24 14:00
Physical Exam
General: Well Developed, Well Nourished and No Apparent Distress
HEENT: NormoCephalic, Moist mucous membranes and Atraumatic
Respiratory: Wheezes
Cardiac: S1/S2 and Regular Rhythm; No Murmur or Rub
GI: Soft, Non Tender, Non Distended and Normal Bowel Sounds; No Organomegaly
Rectal: Deferred by Provider
Musculoskeletal: No Clubbing, No Cyanosis and No Edema
Skin: No Rash
Neuro: AO x 3 and Nonfocal/grossly intact
Psych: Calm
Laboratory Results
-
06/27/24 12:30
06/27/24 12:29
Laboratory Results
PT 12.5 Sec (11.4-14.6) 06/27/24 12:
INR 0.90 06/27/24 12:29
Total Bilirubin 0.6 mg/dl (0.2-1.3) 06/27/24 12:
AST 22 U/L (14-36) 06/27/24 12:
ALT 27 U/L (0-35) 06/27/24 12:
Alkaline Phosphatase 100 U/L (38-126) 06/27/24 12:
Troponin I < 0.012 ng/ml 06/27/24 12:29
Data Reviewed
-
Lab Data: Labs Reviewed by me
Impression/Plan
-
# COPD exacerbation failed outpatient therapy
-COVID-negative
-Chest x-ray There is flattening of the diaphragms suggesting chronic obstructive pulmonary disease. There are no proposed acute pleural or parenchymal abnormalities.
-Negative for influenza B
-Decadron continued
-zithro continued
-Mucinex continued
-Nebs as needed for short of breath and wheezing
# Leukocytosis likely from steroids
-Patient is afebrile
-Continue to monitor
#History of diverticulitis status post sigmoid resection in 1997
#History of rectal bleeding secondary to colitis/diverticulosis
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
#History of thyroidectomy
#Hypothyroidism
-Continue levothyroxine
#Bilateral carotid artery stenosis
-Continue aspirin
#History of subclavian artery stent
#Essential hypertension
-Continue diltiazem
-Continue lisinopril
#Hyperlipidemia
-Continue Zetia, statin
#Peripheral arterial disease status post stent
#History of TIA
#History of DVT
#Chronic lower back pain
-Continue Percocet
# GERD
-Famotidine continued
#History of sacroiliac joint injection/right total hip replacement
#Full code
#DVT prophylaxis�Lovenox
--- NOTE | 2024-06-27 16:40 | W.PN.UPDATE ---
Update Note
Progress Note Update
This is an addendum to the H&P written by Raven Pan on 06/27/2024. Patient seen examined independently with MICROBIOLOGICAL LAB TECHNICIAN.
78-year-old female past medical history of diverticulitis status post sigmoid resection, smoking, immunoglobulin deficiency secondary to thymus radiation as a baby, COPD, hypothyroidism, bilateral carotid artery stenosis, subclavian artery stent,
hypertension, hyperlipidemia, peripheral arterial disease status post 10, TIA, DVT, chronic lower back pain, rectal bleeding secondary to diverticulosis presenting with productive cough and shortness of breath for past few days. Was started on
azithromycin and Medrol Dosepak without improvement.
Labs show leukocytosis of 18.
Chest x-ray shows flattening of the diaphragms suggesting COPD.
DuoNebs every 6 hours. Dexamethasone. Mucinex. Continue azithromycin.
[2024-06-27] MEDS: DUONEB INH (18:06)
--- NOTE | 2024-06-27 18:39 | PTCARENOTE ---
Despite education by this RN and patient's prior knowledge, patient refused SQ Lovenox.
--- NOTE | 2024-06-27 18:41 | PTCARENOTE ---
Patient received to the floor. Oriented to the room. All patient needs met. Dinner tray received. Safety measures in place.
[2024-06-27] MEDS: DUONEB 3 ML INH (20:17)
[2024-06-27] MEDS: ADVAIR HFA 115/21 MCG INHALER 2 PUFF INH (20:18)
[2024-06-27] MEDS: MUCINEX 1200 MG PO (20:57)
[2024-06-27] MEDS: CRESTOR 5 MG PO (20:57)
[2024-06-27] MEDS: CARDIZEM 30 MG PO (20:57)
[2024-06-27] MEDS: PEPCID 40 MG PO (20:58)
[2024-06-27] MEDS: ZETIA 10 MG PO (20:58)
[2024-06-27] MEDS: BENADRYL 25 MG PO (20:58)
[2024-06-28] MEDS: DECADRON 4 MG IV ×3 (02:52→21:27)
[2024-06-28] MEDS: SYNTHROID 75 MCG PO (05:51)
[2024-06-28] MEDS: ADVAIR HFA 115/21 MCG INHALER 2 PUFF INH ×2 (07:31→19:51)
[2024-06-28] MEDS: DUONEB 3 ML INH ×4 (07:31→19:52)
[2024-06-28 07:38] VITALS: BP 117/64
[2024-06-28] MEDS: NICODERM TRANSDERMAL 21 MG TRANSDERM (09:27)
[2024-06-28] MEDS: ZITHROMAX 250 MG PO (09:28)
[2024-06-28] MEDS: MUCINEX 1200 MG PO ×2 (09:28→20:14)
[2024-06-28] MEDS: ZESTRIL 5 MG PO (09:29)
[2024-06-28] MEDS: ZYRTEC 10 MG PO (09:29)
[2024-06-28] MEDS: CARDIZEM 30 MG PO ×2 (09:30→20:15)
[2024-06-28] MEDS: ASPIR LOW (ENTERIC COATED) 81 MG PO (09:30)
[2024-06-28] MEDS: PEPCID 40 MG PO ×2 (09:30→20:21)
[2024-06-28] MEDS: VITAMIN D3 (cholecalciferol) 25 MCG PO (09:31)
[2024-06-28 10:00] LABS: % Basophils 0.1 % (0-2); % Immature Granulocytes 0.8 % (0-0.5); % Lymphocytes 4.9 % (20.5-51.1); % Neutrophils 92.2 % (42.2-75.2); Absolute Immature Granulocytes 0.1 10^3/uL (0-0.05); Absolute Lymphocytes 0.7 10^3/uL (1.2-3.4); Absolute Monocytes 0.3 10^3/uL (0.1-0.6); Absolute Neutrophils 13.1 10^3/uL (1.4-6.5); Hematocrit 39.2 % (37.0-47.0); Hemoglobin 12.7 g/dL (12.0-16.0); Mean Corp Hgb Conc. 32.4 g/dL (33.0-37.0); Mean Corpuscular Hgb 30.1 pg (27.0-31.0); Mean Corpuscular Volume 92.9 fL (81.0-99.0); Nucleated Red Blood Cells % 0 %; Platelet Count 230 10^3/uL (130-400); Red Blood Cell Count 4.22 10^6/uL (4.20-5.40); Red Cell Dist. Width 15.1 % (11.5-14.5); White Blood Cell Count 14.3 10^3/uL (4.8-10.8)
[2024-06-28] MEDS: MIRALAX 8.5 GRAMS PO (12:45)
--- NOTE | 2024-06-28 15:02 | CM ---
Pt seen bedside w/ daughter. Initial assessment completed. Admitted for SOB.
Pt reports that she lives w/ her son, Khai, in a 2STH- 5 steps to enter the home. Pt has a first flr set up.
Pt is independent w/ ambulating, no devices. Pt stated there are grab bars in the bathtub
Pt denies SNF hx but was engaged in OP therapy at [facility]
Pt did have VN/PT in the past after her hip surgery in 2019 but cannot recall the provider
Address, points of contact and insurance verified
PCP: Dr. Chu
Pharmacy: [facility]
Plan: Home; no needs likely
[2024-06-28 15:25] VITALS: BP 109/46
--- NOTE | 2024-06-28 16:09 | W.PN.HOSP.TC ---
Today's Communication/Plan
-
See plan
Assessment / Plan
Assessment / Plan
Impression:
Acute bronchitis
COPD exacerbation.
Right upper lobe nodule
Other conditions:
History of diverticulitis with sigmoid resection 1997.
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
Status post thyroidectomy.
PAD including carotid artery disease and subclavian artery stenosis with stenting.
Essential hypertension
Hypothyroidism replace
Dyslipidemia
Chronic lower back pain with opiate dependence.
Tobacco use disorder.
Plan:
COPD exacerbation with acute bronchitis
Presents with days of worsening of exertional dyspnea, productive cough, subjective fever.
No significant response since initiation of oral antibiotic/Zithromax and steroid taper as outpatient
Chest x-ray with COPD related changes with no focal infiltrates.
COVID/influenza negative
Review of the recent CT chest right upper lobe nodule
Noted elevated white count at 18.5, likely related to ongoing corticosteroid therapy.
Reports improvement since admission.
Sputum culture
Continue antibiotics currently on Zithromax with addition of ceftriaxone
Mucolytics.
Short acting bronchodilators.
Continue fluticasone/salmeterol
Pulmonology evaluation
Consider to repeat CT scan of the chest. Patient is allergic to IV contrast
Essential hypertension.
Continue Cardizem and lisinopril.
GERD.
Continue PPI
Chronic pain
On oxycodone
Tobacco use disorder continue nicotine patch
Anticipated Discharge: 24 - 48 hours
Subjective/Interval History
-
Date of Service: June 28, 2024
Objective Data
-
Labs:
Laboratory Results
06/28/24
09:28
WBC 14.3 H
Hgb 12.7
Hct 39.2
Plt Count 230
Vital Signs:
Vital Signs
Temp Pulse Resp BP Pulse Ox
98.3 F 84 18 109/46 100
06/28/24 15:25 06/28/24 15:25 06/28/24 15:25 06/28/24 15:25 06/28/24 15:25
Physical Exam
-
General: Well Developed and No Apparent Distress
HEENT: Normocephalic, Atraumatic and Moist Mucous Membranes
Respiratory: Wheezes and Rhonchi
Cardiac: Regular Rhythm and S1/S2; Negative Murmur, Rub or Gallop
GI: Soft, Nontender, Nondistended and Normal Bowel Sounds; Negative Organomegaly
Rectal: Deferred by Provider
Musculoskeletal: No Clubbing, No Cyanosis and No Edema
Skin: Negative Rash
Neuro: Nonfocal/Grossly Intact
[2024-06-28] MEDS: MYCOSTATIN ORAL SUSPENSION 5 ML TUBE (16:20)
[2024-06-28] MEDS: PROTONIX 40 MG PO (16:20)
[2024-06-28] MEDS: STERILE WATER FOR INJECTION 10 ML IV (16:21)
[2024-06-28] MEDS: ROCEPHIN 1000 MG IV (16:21)
[2024-06-28] MEDS: PERCOCET 5/325 0.5 TABLET PO (20:14)
[2024-06-28] MEDS: BENADRYL 25 MG PO (21:27)
[2024-06-28] MEDS: MYCOSTATIN ORAL SUSPENSION 5 ML PO (21:28)
[2024-06-28] MEDS: ZETIA 10 MG PO (21:28)
[2024-06-28] MEDS: LIDOCAINE 4% PATCH 1 PATCH TOPICAL (21:46)
[2024-06-28 23:37] VITALS: BP 96/66
[2024-06-29] MEDS: DECADRON 4 MG IV ×3 (05:30→20:26)
[2024-06-29] MEDS: SYNTHROID 75 MCG PO (05:30)
[2024-06-29 07:58] VITALS: BP 131/61
[2024-06-29 08:00] LABS: % Basophils 0.1 % (0-2); % Immature Granulocytes 0.9 % (0-0.5); % Lymphocytes 6.1 % (20.5-51.1); % Monocytes 3.9 % (1.7-9.3); Absolute Immature Granulocytes 0.1 10^3/uL (0-0.05); Absolute Lymphocytes 0.8 10^3/uL (1.2-3.4); Absolute Monocytes 0.5 10^3/uL (0.1-0.6); Absolute Neutrophils 12.3 10^3/uL (1.4-6.5); Hematocrit 38.4 % (37.0-47.0); Hemoglobin 12.9 g/dL (12.0-16.0); Mean Corp Hgb Conc. 33.6 g/dL (33.0-37.0); Mean Corpuscular Hgb 30.5 pg (27.0-31.0); Mean Corpuscular Volume 90.8 fL (81.0-99.0); Mean Platelet Volume 11.1 fL (7.4-10.4); Nucleated Red Blood Cells % 0 %; Platelet Count 234 10^3/uL (130-400); Red Blood Cell Count 4.23 10^6/uL (4.20-5.40); White Blood Cell Count 13.9 10^3/uL (4.8-10.8)
[2024-06-29] MEDS: CARDIZEM 30 MG PO ×2 (08:27→21:21)
[2024-06-29] MEDS: MUCINEX 1200 MG PO ×2 (08:27→20:25)
[2024-06-29] MEDS: ASPIR LOW (ENTERIC COATED) 81 MG PO (08:27)
[2024-06-29] MEDS: NICODERM TRANSDERMAL 21 MG TRANSDERM (08:28)
[2024-06-29] MEDS: MYCOSTATIN ORAL SUSPENSION 5 ML PO ×4 (08:28→21:21)
[2024-06-29] MEDS: VITAMIN D3 (cholecalciferol) 25 MCG PO (08:28)
[2024-06-29] MEDS: ZESTRIL 5 MG PO (08:28)
[2024-06-29] MEDS: PROTONIX 40 MG PO (08:28)
[2024-06-29] MEDS: PEPCID 40 MG PO ×2 (08:28→20:25)
[2024-06-29] MEDS: ADVAIR HFA 115/21 MCG INHALER 2 PUFF INH ×2 (08:29→20:32)
[2024-06-29] MEDS: ZITHROMAX 250 MG PO (08:29)
[2024-06-29] MEDS: ZYRTEC 10 MG PO (08:29)
--- NOTE | 2024-06-29 09:16 | CON.PUL ---
Consultation
Consultation Request
Date/Time Consultation Requested: 06/28/24
Date/Time Consultation Performed: 06/29/24
Performing Provider: Soheila
Reason for Consultation: AECOPD
Medical History
-
History of Present Illness:
Patient is a 78-year-old with past medical history for COPD, TIA, DVT, hypertension, hypothyroidism presented to ER with shortness of breath, productive cough with yellow to whitish sputum since last . Patient was evaluated by
pulmonology (Dr Fontenot) on 06/20/24 and was prescribed Trelegy, which made her symptoms worse. She felt that may have triggered her complaints by , but she also notes her friend's pet rabbit may have as well. Started wheezing with worsening
SOB. Patient was started on Medrol pack and Zithromax on Wednesday but did not feel it was helping.
In ER, CXR stable with no acute findings. She is not hypoxemia, on RA. Since admission and on IV steroids, she does not feel improved.
Still smoking / PPD. She is stressed from her son living at home.
Past Medical History
Past Medical History: Other (see list below)
Social History
Tobacco: Smoker
Alcohol: None
Drug: None
Family History
Family History: Reviewed & Not Pertinent
Allergies / Home Medications
Allergies
Allergy/AdvReac Type Severity Reaction Status Date / Time
bupropion HCl Allergy Hives / Verified 06/27/24 12:23
[From Wellbutrin] throat
tightness
dexlansoprazole Allergy Vomiting Verified 06/27/24 12:23
[From Dexilant]
duloxetine [From Cymbalta] Allergy Nausea, Verified 06/27/24 12:23
'burning'
tongue
house dust Allergy Wheezing, Verified 06/27/24 12:23
Sneezing
hydrochlorothiazide Allergy Burning of Verified 06/27/24 12:23
tongue
immune globulin,gamma (IgG) Allergy Serum Verified 06/27/24 12:23
human Sickness
Iodinated Contrast Media Allergy Hives Verified 06/27/24 12:23
iohexol [From Omnipaque] Allergy 300-HEAT Verified 06/27/24 12:23
ACCROSS
CHEST AND
1 HIVE
06/29/1997
Penicillins Allergy as a Verified 06/27/24 12:23
child;
tolerated
cephalexin
Sulfa (Sulfonamide Allergy Hives Verified 06/27/24 12:23
Antibiotics)
venom-honey bee Allergy Anaphylaxis Verified 06/27/24 12:23
[bee venom (honey bee)]
Home Medications
�Medication �Instructions �Recorded �Confirmed �Last Taken �Type
cetirizine 10 mg tablet 10 mg PO DAILY Allergies 03/06/16 06/27/24 06/27/24 History
diltiazem HCl 30 mg tablet 30 mg PO BID Heart 03/06/16 06/27/24 06/27/24 History
disease/condition
diphenhydramine HCl 25 mg capsule 25 mg PO HS sleep 04/03/19 06/27/24 06/26/24 History
(Banophen)
aspirin 81 mg tablet,delayed 81 mg PO DAILY Blood clot 04/01/20 06/27/24 06/27/24 History
release prevention/tx
rosuvastatin 5 mg tablet 5 mg PO MOTUTHFR High cholesterol 04/01/20 06/27/24 06/27/24 History
cholecalciferol (vitamin D3) 25 25 mcg PO DAILY Supplement 04/20/23 06/27/24 06/27/24 History
mcg (1,000 unit) tablet
ezetimibe 10 mg tablet 10 mg PO HS High Cholesterol 04/20/23 06/27/24 06/26/24 History
fluticasone 250 mcg-salmeterol 50 1 inh inhalation R BID 04/20/23 06/27/24 06/27/24 History
mcg/dose blistr powdr for Lung/Breathing Issues
inhalation (Wixela Inhub)
levothyroxine 75 mcg tablet 75 mcg PO DAILY Thyroid 04/20/23 06/27/24 06/27/24 History
lisinopril 5 mg tablet 5 mg PO DAILY Blood Pressure 04/20/23 06/27/24 06/27/24 History
oxycodone-acetaminophen 5 mg-325 0.5 tab PO BIDPRN PRN back pain 04/20/23 06/27/24 1 Week Ago History
mg tablet ~11/16/23
tiotropium bromide 2.5 1 inh inhalation R BID 04/20/23 06/27/24 06/27/24 History
mcg/actuation mist for inhalation Lung/Breathing Issues
(Spiriva Respimat)
famotidine 40 mg tablet 40 mg PO BID fluid retention/edema 11/23/23 06/27/24 06/27/24 History
polyethylene glycol 3350 17 gram 8.5 g PO NOON constipation 11/23/23 06/27/24 11/22/23 History
oral powder packet (Miralax)
azithromycin 250 mg tablet 250 mg PO USEASDIRECTD 06/27/24 06/27/24 06/27/24 History
methylprednisolone 4 mg tablets in 4 mg PO PER PKG DIR 06/27/24 06/27/24 06/27/24 History
a dose pack
Review of Systems
-
History Source: Patient
All other systems: Negative unless noted
Vitals / Labs / Diagnostic Testing
Vital Signs
Temp Pulse Resp BP Pulse Ox
99.2 F 102 18 131/61 95
06/29/24 07:58 06/29/24 07:58 06/29/24 07:58 06/29/24 08:27 06/29/24 07:58
Lab Data
06/29/24 07:15
06/27/24 12:29
Microbiology
06/27/24 12:30 Nasal Swab Influenza Types A & B ([facility]) - Final
Negative for Influenza A & B, NAAT
Negative results must be combined with clinical observations
and patient history.
Nucleic Acid Amplification test (NAAT)performed on the
[employer] platform.
Diagnostic Testing:
Physical Exam
-
HEENT: Normocephalic, Anicteric and Moist Mucous Membranes
Cardiovascular: S1/S2 and Regular Rhythm
Respiratory: Wheeze (mild) and Non-Labored Respirations
GI: Soft, Non Distended and Non Tender
Neurology: Awake, Alert, Oriented and No Motor Deficits
Skin: Warm, Dry and Good Color
General: Comfortable and Other (NAD)
Assessment
-
Patient is a 78-year-old with past medical history for COPD, TIA, DVT, hypertension, hypothyroidism presented to ER with shortness of breath, productive cough with yellow to whitish sputum since last . Patient was evaluated by
pulmonology (Dr Fontenot) on 06/20/24 and was prescribed Trelegy, which made her symptoms worse. She felt that may have triggered her complaints by , but she also notes her friend's pet rabbit may have as well. Started wheezing with worsening
SOB. Patient was started on Medrol pack and Zithromax on Wednesday but did not feel it was helping. In ER, CXR stable with no acute findings. She is not hypoxemia, on RA. Since admission and on IV steroids, she does not feel improved. Still smoking
05/20 PPD. She is stressed from her son living at home. We are consulted for eval 06/29/24.
AECOPD, triggered likely by continued smoking
Acute on chronic SOB
Recent COVID illness
Leukocytosis, due to recent OP medrol dose karli
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
COPD/emphysema
Follows with Dr Fontenot, moderate obstruction
on Wixela and Spiriva at baseline
RLL nodule (9-10mm via Ct chest from 11/26/2023) new compared to prior CT A/P from 04/2023) likely mucoid impaction; neoplasm not ruled out but considered less likely
Personal history of COVID-19 (March 2020)
Anxiety
Osteoporosis
CAD
Hypertension
RLE DVT (1981)
History of recurrent pneumonia/bronchitis
Carotid artery stenosis
Subclavian artery stent (LEFT)
PAD
History of TIA
Chronic lower back pain
History of Prinzmetal's angina
Psoriatic arthritis
Polycythemia
Hx of 'stomach tear'
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
Hypothyroidism s/p thyroidectomy
Thymic irradiation for infantile cyanosis
19-nado-ncve history of smoking, ongoing-still smoking 05/20 PPD
Plan:
Currently stable on RA
Reports her SOB seems out of proportion to findings
She has mod-severe COPD, followed by Dr Fontenot
Unresponsive to recent medrol dose karli as OP and feeling not improved with IV steroids during this admission
CXR without acute findings
Leukocytosis likely noninfectious due to recent steroid course
Acute on chronic SOB ongoing
Triggers are likely ongoing smoking usage
Recent COVID illness noted but she notes she felt back to baseline at her OP Pulm appt 06/20/24
Obtain 6MWT today
Check proBNP and procal
May need repeat imaging but pending results above
ECHO in past with hyperdynamic function, last obtained in 2020
Repeat study to rule out PH
Prior CT chest 02/2024: centrilobular emphysema with scattered upper lobe faint nodules/GGO, biapical pleural/parenchymal scarring, with right lower lobe consolidative opacity in posterior superior segment, inferior lingula + medial RML
atelectasis, with RLL 9-10mm nodular opacity and lower lobe predominant bronchial wall thickening with mucoid impaction.
She has been instructed to get OP CT completed likely in 6 mos but wants to know if she can have it while inpt
Will confirm with Dr Fontenot
She has immune def syndrome, no longer on IVIG
She reports that she 'does better' on abx even for 'viral illnesses'
She is placed on CAP coverage
This can be stopped if PCT negative
[place] considering that her overall lung function has declined and that her ongoing smoking is contributing to this
I reviewed this with her
She understands her need to quit smoking ISA
NRT continued
Resume OP inhalers
prn nebulized bronchodilators
Maintain SpO2 >88-94% with supplemental O2 as needed
Incentive spirometer encouraged
We will follow
Diagnostic Data:
CXR 06/27/24- There is flattening of the diaphragms suggesting chronic obstructive pulmonary disease. There are no proposed acute pleural or parenchymal abnormalities.
CXR 11-23-2023: New findings suggesting mild right middle lobe pneumonia.
CT Chest 11-26-2023: Biapical pleural/parenchymal scarring, right greater than left, right apical segment likely accounting for opacity seen on recent chest radiograph. Superior segment right lower lobe small irregular opacity likely accounting for
additional opacity seen on more recent chest radiograph. Recommend follow-up chest CT to confirm resolution, findings at least in part could represent some scarring. Additional areas of scarring noted, as detailed above. Approximate 0.6-0.7 cm
somewhat oblong-shaped left lower lobe pulmonary nodule, indeterminate.Coronary artery calcifications.
CT Abd/Pelvis with IV contrast 11-23-2023: Spiculated noncalcified right lower lobe pulmonary nodule. New. PET imaging recommended. Large amount of fecal material throughout the colon. Progressed Hepatic cysts. Stable. Diverticulosis. Stable
Outpatient BCUT Data:
PFT:
������ [place] 10/17/20: FVC 2.46/93%, FEV1 1.19/60%, ratio 48. When compared to June, FEV1 continues to decline
�������PFT 06/20/20: FVC 2.54/100%, FEV1 1.34/70%, ratio 54. TLC 5.90/133%, RV 3.07/156%, RV/TLC ratio 52, DLCO 9.02/47%.
6 MWT:
������ 6MWT 10/17/20: Total distance 864 feet, 97% room air, heart rate 100, dyspnea scale 0/10
�������6MWT 06/20/20: Total distance 900 feet, 91% on room air, heart rate 119, dyspnea scale 2/10. Complaining of back pain.
RADIOGRAPHIC STUDIES:
������ CT chest 04/02/20: No evidence of pulmonary embolism. Findings compatible with emphysema. Minor right lower lobe opacity most likely representing segmental atelectasis, minimal pneumonia.
�������CXR 04/01/20: no acute disease of the chest
�������CT chest 06/13/15: Moderate emphysema, left subclavian stent.
CARDIAC STUDIES:
������ Echo 07/19/20: hyperdynamic LV, EF 75%. normal RV, No significant valvar disease. normal PAP
�������Echo 12/27/15: Normal biventricular function, right heart pressures could not be determined
�������LHC 03/09/14: no significant coronary disease. Left subclavian artery stenosis with stent placement.
LABS:
������ 04/01/20: D-dimer 0.67, hemoglobin 15.9,normal serum bicarbonate, creatinine, calcium, liver function
�������positive Covid test at [facility] 03/26/2020
�������Son with positive Covid test.
-----
Total time spent today was 77 minutes for this encounter. Time includes reviewing laboratory test/imaging results, reviewing pertinent medical records, obtaining and reviewing medical history, performing an appropriate exam, ordering medications,
tests and procedures. Time also includes documentation of this encounter, coordinating patient care and communicating with other healthcare professionals.
[2024-06-29] MEDS: XOPENEX 0.63 MG INHALANT SOLUTION INH ×3 (09:23→20:32)
[2024-06-29] MEDS: DUONEB INH (09:31)
[2024-06-29] MEDS: MIRALAX 8.5 GRAMS PO (12:08)
[2024-06-29 13:43] LABS: Procalcitonin < 0.05 ng/ml (0.0-0.25)
[2024-06-29 13:48] LABS: NT-proBNP 74.1 pg/ml
[2024-06-29 14:34] VITALS: BP 126/68
--- NOTE | 2024-06-29 16:13 | W.PN.HOSP.TC ---
Today's Communication/Plan
-
Off baseline with exertional dyspnea
6-minute walk test with saturations at 91%.
Continue current corticosteroid dose for another 24 hours.
Plan is to narrow antibiotics to Zithromax on 06/30.
Discussed with pulmonology
Possibly repeat CT scan of the chest prior to discharge
Assessment / Plan
Assessment / Plan
Impression:
Acute bronchitis
COPD exacerbation.
Right upper lobe nodule
Other conditions:
History of diverticulitis with sigmoid resection 1997.
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
Status post thyroidectomy.
PAD including carotid artery disease and subclavian artery stenosis with stenting.
Essential hypertension
Hypothyroidism replace
Dyslipidemia
Chronic lower back pain with opiate dependence.
Tobacco use disorder.
Plan:
COPD exacerbation with acute bronchitis
Presents with days of worsening of exertional dyspnea, productive cough, subjective fever.
No significant response since initiation of oral antibiotic/Zithromax and steroid taper as outpatient
Chest x-ray with COPD related changes with no focal infiltrates.
COVID/influenza negative
Review of the recent CT chest right upper lobe nodule
Noted elevated white count at 18.5, likely related to ongoing corticosteroid therapy.
Reports improvement since admission.
Procalcitonin negative evident against bacterial infection
Continue antibiotics currently on Zithromax with addition of ceftriaxone for another 24 hours with plan to transition to Zithromax at the lower dose every other day on 06/30
Mucolytics.
Short acting bronchodilators.
Continue fluticasone/salmeterol
Pulmonology evaluation appreciated
Consider to repeat CT scan of the chest. Patient is allergic to IV contrast
Volume status compensated
Echocardiogram with preserved biventricular function and no evidence of pulmonary hypertension
Essential hypertension.
Continue Cardizem and lisinopril.
GERD.
Continue PPI
Chronic pain
On oxycodone
Tobacco use disorder continue nicotine patch
Anticipated Discharge: 24 - 48 hours
Subjective/Interval History
-
Date of Service: June 29, 2024
Objective Data
-
Labs:
Laboratory Results
06/29/24
07:15
WBC 13.9 H
Hgb 12.9
Hct 38.4
Plt Count 234
Vital Signs:
Vital Signs
Temp Pulse Resp BP Pulse Ox
98.2 F 96 18 126/68 97
06/29/24 14:34 06/29/24 14:34 06/29/24 14:34 06/29/24 14:34 06/29/24 14:34
I&O
06/28/24 06/29/24 06/30/24
06:59 06:59 06:59
Intake Total 840 / 840 240 / 240
Balance 840 / 840 240 / 240
Physical Exam
-
General: Well Developed and No Apparent Distress
HEENT: Normocephalic, Atraumatic and Moist Mucous Membranes
Respiratory: Wheezes and Rhonchi
Cardiac: Regular Rhythm and S1/S2; Negative Murmur, Rub or Gallop
GI: Soft, Nontender, Nondistended and Normal Bowel Sounds; Negative Organomegaly
Rectal: Deferred by Provider
Musculoskeletal: No Clubbing, No Cyanosis and No Edema
Skin: Negative Rash
Neuro: Nonfocal/Grossly Intact
[2024-06-29] MEDS: CRESTOR 5 MG PO (17:17)
[2024-06-29] MEDS: STERILE WATER FOR INJECTION 10 ML IV (17:18)
[2024-06-29] MEDS: ROCEPHIN 1000 MG IV (17:18)
[2024-06-29] MEDS: PERCOCET 5/325 0.5 TABLET PO (20:24)
[2024-06-29] MEDS: LIDOCAINE 4% PATCH 1 PATCH TOPICAL (21:19)
[2024-06-29] MEDS: BENADRYL 25 MG PO (21:21)
[2024-06-29] MEDS: ZETIA 10 MG PO (21:23)
[2024-06-29 22:55] VITALS: BP 135/70
[2024-06-30] MEDS: DECADRON 4 MG IV (05:42)
[2024-06-30] MEDS: SYNTHROID 75 MCG PO (05:42)
[2024-06-30 06:54] LABS: % Basophils 0.1 % (0-2); % Immature Granulocytes 0.9 % (0-0.5); % Lymphocytes 7.3 % (20.5-51.1); % Monocytes 4.3 % (1.7-9.3); % Neutrophils 87.4 % (42.2-75.2); Absolute Immature Granulocytes 0.1 10^3/uL (0-0.05); Absolute Monocytes 0.6 10^3/uL (0.1-0.6); Absolute Neutrophils 12.3 10^3/uL (1.4-6.5); Hemoglobin 12.8 g/dL (12.0-16.0); Mean Corp Hgb Conc. 33.7 g/dL (33.0-37.0); Mean Corpuscular Hgb 30.4 pg (27.0-31.0); Mean Corpuscular Volume 90.3 fL (81.0-99.0); Mean Platelet Volume 11.1 fL (7.4-10.4); Nucleated Red Blood Cells % 0 %; Platelet Count 264 10^3/uL (130-400); Red Blood Cell Count 4.21 10^6/uL (4.20-5.40); Red Cell Dist. Width 15.1 % (11.5-14.5); White Blood Cell Count 14.1 10^3/uL (4.8-10.8)
[2024-06-30 07:05] VITALS: BP 127/61
[2024-06-30] MEDS: ADVAIR HFA 115/21 MCG INHALER 2 PUFF INH (07:17)
[2024-06-30] MEDS: ASPIR LOW (ENTERIC COATED) 81 MG PO (07:56)
[2024-06-30] MEDS: PROTONIX 40 MG PO (07:57)
[2024-06-30] MEDS: ZESTRIL 5 MG PO (07:58)
[2024-06-30] MEDS: CARDIZEM 30 MG PO (07:58)
[2024-06-30] MEDS: PEPCID 40 MG PO (07:58)
[2024-06-30] MEDS: MUCINEX 1200 MG PO (07:58)
[2024-06-30] MEDS: ZYRTEC 10 MG PO (07:58)
[2024-06-30] MEDS: NICODERM TRANSDERMAL 21 MG TRANSDERM (07:59)
[2024-06-30] MEDS: VITAMIN D3 (cholecalciferol) 25 MCG PO (07:59)
[2024-06-30] MEDS: MYCOSTATIN ORAL SUSPENSION 5 ML PO ×2 (08:00→12:30)
[2024-06-30] MEDS: ZITHROMAX 250 MG PO (08:04)
--- NOTE | 2024-06-30 09:22 | W.PN.PUL3 ---
Today's Communication / Plan
-
Stable on RA, 6MWT without desaturation but did have HR max 118
ECHO showing hyperdynamic EF/small LV cavity/no LVOT--she saw Dr Su in past, can follow as OP for this
CT chest per patient request, order placed today
Prednisone taper initiated, can start on 40mg with quick taper by 10mg every 48 hours (we discussed stopping at 5mg every other day until seen in our office)
Continue azithro but can change dose to MWF for outpatient continuation
She has requested to go home, d/c planning per team
I reviewed with her OP FU and next steps
Assessment
-
Patient is a 78-year-old with past medical history for COPD, TIA, DVT, hypertension, hypothyroidism presented to ER with shortness of breath, productive cough with yellow to whitish sputum since last . Patient was evaluated by
pulmonology (Dr Fontenot) on 06/20/24 and was prescribed Trelegy, which made her symptoms worse. She felt that may have triggered her complaints by , but she also notes her friend's pet rabbit may have as well. Started wheezing with worsening
SOB. Patient was started on Medrol pack and Zithromax on Wednesday but did not feel it was helping. In ER, CXR stable with no acute findings. She is not hypoxemia, on RA. Since admission and on IV steroids, she does not feel improved. Still smoking
05/20 PPD. She is stressed from her son living at home. We are consulted for eval 06/29/24.
AECOPD, triggered likely by continued smoking
Acute on chronic SOB
Recent COVID illness
Leukocytosis, due to recent OP medrol dose karli
Hyperdynamic EF, small LV cavity, no LVOT on ECHO
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
COPD/emphysema
Follows with Dr Fontenot, moderate obstruction
on Wixela and Spiriva at baseline
RLL nodule (9-10mm via Ct chest from 11/26/2023) new compared to prior CT A/P from 04/2023) likely mucoid impaction; neoplasm not ruled out but considered less likely
Personal history of COVID-19 (March 2020)
Anxiety
Osteoporosis
CAD
Hypertension
RLE DVT (1981)
History of recurrent pneumonia/bronchitis
Carotid artery stenosis
Subclavian artery stent (LEFT)
PAD
History of TIA
Chronic lower back pain
History of Prinzmetal's angina
Psoriatic arthritis
Polycythemia
Hx of 'stomach tear'
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
Hypothyroidism s/p thyroidectomy
Thymic irradiation for infantile cyanosis
87-kgih-dhim history of smoking, ongoing-still smoking 05/20 PPD
Plan:
Currently stable on RA
Reports her SOB seems out of proportion to findings
She has mod-severe COPD, followed by Dr Fontenot
Unresponsive to recent medrol dose karli as OP and feeling not improved with IV steroids during this admission
Transition to PO prednisone, she has requested a quick taper which we can do
Reviewed dosing and titration schedule to remain on 5 mg every other day until seen
CXR without acute findings
Leukocytosis likely noninfectious due to recent steroid course
Acute on chronic SOB ongoing
Triggers are likely ongoing smoking usage
Recent COVID illness noted but she notes she felt back to baseline at her OP Pulm appt 06/20/24
Obtain 6MWT today--tachycardia HR max 118 noted
Check proBNP and procal--neg
May need repeat imaging but pending results above--ok with CT chest today per Dr Fontenot
ECHO in past with hyperdynamic function, last obtained in 2020
Repeat study to rule out PH--no sign PH but does have hyperdynamic function with small LV cavity, no LVOT
This could produce SHER complaints
Used to see Dr Su, can follow as OP for further steps on management
Prior CT chest 02/2024: centrilobular emphysema with scattered upper lobe faint nodules/GGO, biapical pleural/parenchymal scarring, with right lower lobe consolidative opacity in posterior superior segment, inferior lingula + medial RML
atelectasis, with RLL 9-10mm nodular opacity and lower lobe predominant bronchial wall thickening with mucoid impaction.
Repeat CT today
She has immune def syndrome, no longer on IVIG
She reports that she 'does better' on abx even for 'viral illnesses'
She is placed on CAP coverage
This can be stopped if PCT negative
[place] considering that her overall lung function has declined and that her ongoing smoking is contributing to this
I reviewed this with her
She understands her need to quit smoking ISA
NRT continued
Resume OP inhalers
prn nebulized bronchodilators
Maintain SpO2 >88-94% with supplemental O2 as needed
Incentive spirometer encouraged
Discharge planning per team, patient has requested to go home today
Diagnostic Data:
CXR 06/27/24- There is flattening of the diaphragms suggesting chronic obstructive pulmonary disease. There are no proposed acute pleural or parenchymal abnormalities.
CXR 11-23-2023: New findings suggesting mild right middle lobe pneumonia.
CT Chest 11-26-2023: Biapical pleural/parenchymal scarring, right greater than left, right apical segment likely accounting for opacity seen on recent chest radiograph. Superior segment right lower lobe small irregular opacity likely accounting for
additional opacity seen on more recent chest radiograph. Recommend follow-up chest CT to confirm resolution, findings at least in part could represent some scarring. Additional areas of scarring noted, as detailed above. Approximate 0.6-0.7 cm
somewhat oblong-shaped left lower lobe pulmonary nodule, indeterminate.Coronary artery calcifications.
CT Abd/Pelvis with IV contrast 11-23-2023: Spiculated noncalcified right lower lobe pulmonary nodule. New. PET imaging recommended. Large amount of fecal material throughout the colon. Progressed Hepatic cysts. Stable. Diverticulosis. Stable
Outpatient BCMA Data:
PFT:
������ [place] 10/17/20: FVC 2.46/93%, FEV1 1.19/60%, ratio 48. When compared to June, FEV1 continues to decline
�������PFT 06/20/20: FVC 2.54/100%, FEV1 1.34/70%, ratio 54. TLC 5.90/133%, RV 3.07/156%, RV/TLC ratio 52, DLCO 9.02/47%.
6 MWT:
������ 6MWT 10/17/20: Total distance 864 feet, 97% room air, heart rate 100, dyspnea scale 0/10
�������6MWT 06/20/20: Total distance 900 feet, 91% on room air, heart rate 119, dyspnea scale 2/10. Complaining of back pain.
RADIOGRAPHIC STUDIES:
������ CT chest 04/02/20: No evidence of pulmonary embolism. Findings compatible with emphysema. Minor right lower lobe opacity most likely representing segmental atelectasis, minimal pneumonia.
�������CXR 04/01/20: no acute disease of the chest
�������CT chest 06/13/15: Moderate emphysema, left subclavian stent.
CARDIAC STUDIES:
������ Echo 07/19/20: hyperdynamic LV, EF 75%. normal RV, No significant valvar disease. normal PAP
�������Echo 12/27/15: Normal biventricular function, right heart pressures could not be determined
�������LHC 03/09/14: no significant coronary disease. Left subclavian artery stenosis with stent placement.
LABS:
������ 04/01/20: D-dimer 0.67, hemoglobin 15.9,normal serum bicarbonate, creatinine, calcium, liver function
�������positive Covid test at [facility] 03/26/2020
�������Son with positive Covid test.
-----
Total time spent today was 52 minutes for this encounter. Time includes reviewing laboratory test/imaging results, reviewing pertinent medical records, obtaining and reviewing medical history, performing an appropriate exam, ordering medications,
tests and procedures. Time also includes documentation of this encounter, coordinating patient care and communicating with other healthcare professionals.
Subjective Data
-
Date of Service:
Date of Service: June 30, 2024
Chief Complaint: Pulmonary Follow Up
Subjective:
No acute events ON, remains stable on RA
Wheezing noted, but improving
Her SHER is not improving
Objective Data
Data Reviewed
Vital Signs / I&O / Oxygen:
Vital Signs
Temp Pulse Resp BP Pulse Ox
98.1 F 86 16 127/61 97
06/30/24 07:05 06/30/24 07:21 06/30/24 07:21 06/30/24 07:05 06/30/24 08:20
Intake and Output
06/29/24 06/30/24 07/01/24
06:59 06:59 06:59
Intake Total 840 / 840 420 / 420
Balance 840 / 840 420 / 420
SaO2 97
Nasal Cannula flow liters per 2
minute
Physical Exam
General: Comfortable and Other (NAD)
HEENT: Normocephalic, Anicteric and Moist Mucous Membranes
Cardiovascular: S1-S2 and Regular Rhythm
Respiratory: Wheeze (slight on L) and Non-Labored Respirations
GI: Soft, Non Distended and Non Tender
Neurology: Awake, Alert, Oriented and No Motor Deficits
Skin: Warm, Dry and Good Color
Labs/Micro/Reports
Lab Data
06/30/24 05:53
06/27/24 12:29
Microbiology
06/30/24 08:09 Sputum Respiratory Culture - Final
06/30/24 08:09 Sputum Gram Stain - Final
06/27/24 12:30 Nasal Swab Influenza Types A & B ([facility]) - Final
Negative for Influenza A & B, NAAT
Negative results must be combined with clinical observations
and patient history.
Nucleic Acid Amplification test (NAAT)performed on the
[employer] platform.
[2024-06-30] MEDS: XOPENEX 0.63 MG INHALANT SOLUTION INH (09:23)
[2024-06-30] MEDS: DELTASONE 40 MG PO (12:30)
[2024-06-30] MEDS: MIRALAX 8.5 GRAMS PO (12:30)
--- NOTE | 2024-06-30 13:23 | W.DS.TRANS ---
DC Summary - [employer]
-
Discharge Instructions:
Discharge Diagnosis/Procedures COPD exacerbation
Diet Regular
Instructions:
Stand-Alone Forms:
Changes to Home Medications: No
Discharge Medications:
DC Medications w/original date entered in [employer]
cetirizine 10 mg tablet 10 mg PO DAILY Allergies 03/06/16
diltiazem HCl 30 mg tablet 30 mg PO BID Heart disease/condition 03/06/16
diphenhydramine HCl 25 mg capsule (Banophen) 25 mg PO HS sleep 04/03/19
aspirin 81 mg tablet,delayed release 81 mg PO DAILY Blood clot prevention/tx 04/01/20
rosuvastatin 5 mg tablet 5 mg PO MOTUTHFR High cholesterol 04/01/20
cholecalciferol (vitamin D3) 25 mcg (1,000 unit) tablet 25 mcg PO DAILY Supplement 04/20/23
ezetimibe 10 mg tablet 10 mg PO HS High Cholesterol 04/20/23
fluticasone 250 mcg-salmeterol 50 mcg/dose blistr powdr for inhalation (Wixela Inhub) 1 inh inhalation R BID Lung/Breathing Issues 04/20/23
levothyroxine 75 mcg tablet 75 mcg PO DAILY Thyroid 04/20/23
lisinopril 5 mg tablet 5 mg PO DAILY Blood Pressure 04/20/23
oxycodone-acetaminophen 5 mg-325 mg tablet 0.5 tab PO BIDPRN PRN back pain 04/20/23
tiotropium bromide 2.5 mcg/actuation mist for inhalation (Spiriva Respimat) 1 inh inhalation R BID Lung/Breathing Issues 04/20/23
famotidine 40 mg tablet 40 mg PO BID fluid retention/edema 11/23/23
polyethylene glycol 3350 17 gram oral powder packet (Miralax) 8.5 g PO NOON constipation 11/23/23
azithromycin 250 mg tablet 250 mg PO USEASDIRECTD 06/27/24
pantoprazole 20 mg tablet,delayed release (Protonix) 20 mg PO DAILY #30 tabs 06/30/24
prednisone 10 mg tablet 10 mg PO DIRECTED #20 tabs 06/30/24
Home Medication Changes
Pending Results: No
--- NOTE | 2024-06-30 13:38 | CM ---
Pt stable for d/c today. Pt is not requiring home O2
Pt seen bedside, agreeable to d/c today. IMM reviewed, pt given copy, copy placed in chart
One of pt's children will transport
No CM needs identified at this time
Plan: Home; no needs
[2024-06-30 15:07] VITALS: BP 146/67
== END 2024-06-30 15:53 | disposition home or self-care (01) | DRG 191 ==
LOC: 4 WEST ACU 16:07
PROVIDERS: Emergency Medicine; Physician Assistant; Registered Nurse; ADMITTING PHYSICIAN Hospitalist; ATTENDING PHYSICIAN Internal Medicine; CONSULT PHYSICIAN Internal Medicine; EMERGENCY PHYSICIAN Emergency Medicine; FAMILY PHYSICIAN Family Medicine
DX: J44.1 Chronic obstructive pulmonary disease with (acute) exacerbation (principal); D84.822 Immunodeficiency due to external causes; J44.0 Chronic obstructive pulmonary disease with (acute) lower respiratory infection; J20.9 Acute bronchitis, unspecified; R91.1 Solitary pulmonary nodule; I73.9 Peripheral vascular disease, unspecified; I10 Essential (primary) hypertension; E78.5 Hyperlipidemia, unspecified; F17.210 Nicotine dependence, cigarettes, uncomplicated; E89.0 Postprocedural hypothyroidism; M54.50 Low back pain, unspecified; G89.29 Other chronic pain
CPT/HCPCS: 71046; 71250; 80053; 82805; 83880; 84145; 84484; 85025; 85610; 87205; 87502; 87811; 93005; 93306; 94640; 94761; 96374; 99285; 99406

== ENCOUNTER 2024-11-06 21:06 | Inpatient (IN) | payer OTHER, SELFPAY ==
[2024-11-06 15:51] VITALS: BP 134/87
[2024-11-06 16:06] LABS: % Basophils 0.5 % (0-2); % Eosinophils 0.9 % (0-6); % Immature Granulocytes 0.4 % (0-0.5); % Lymphocytes 18.1 % (20.5-51.1); % Monocytes 10.4 % (1.7-9.3); % Neutrophils 69.7 % (42.2-75.2); Absolute Basophils 0.1 10^3/uL (0-0.2); Absolute Eosinophils 0.1 10^3/uL (0-0.7); Absolute Immature Granulocytes 0.1 10^3/uL (0-0.05); Absolute Lymphocytes 2.2 10^3/uL (1.2-3.4); Absolute Monocytes 1.3 10^3/uL (0.1-0.6); Absolute Neutrophils 8.6 10^3/uL (1.4-6.5); Hematocrit 42.6 % (37.0-47.0); Hemoglobin 13.9 g/dL (12.0-16.0); Mean Corp Hgb Conc. 32.6 g/dL (33.0-37.0); Mean Corpuscular Hgb 29.9 pg (27.0-31.0); Mean Corpuscular Volume 91.6 fL (81.0-99.0); Mean Platelet Volume 11.3 fL (7.4-10.4); Nucleated Red Blood Cells % 0 %; Platelet Count 288 10^3/uL (130-400); Red Blood Cell Count 4.65 10^6/uL (4.20-5.40); Red Cell Dist. Width 14.6 % (11.5-14.5); White Blood Cell Count 12.3 10^3/uL (4.8-10.8)
[2024-11-06 16:29] LABS: ALT (SGPT) 21 U/L (0-35); AST (SGOT) 20 U/L (14-36); Albumin 3.9 g/dl (3.5-5.0); Alkaline Phosphatase 78 U/L (38-126); Blood Urea Nitrogen 17 mg/dl (7-17); Calcium 9.9 mg/dl (8.4-10.2); Carbon Dioxide 24 mmol/L (22-30); Chloride 112 mmol/L (98-107); Glucose 102 mg/dl (70-99); Potassium 4.6 mmol/L (3.5-5.1); Sodium 141 mmol/L (135-145); Total Bilirubin 0.4 mg/dl (0.2-1.3); eGFR > 60.00
[2024-11-06 18:44] VITALS: BP 142/58
[2024-11-06 18:48] VITALS: BMI 23.0
[2024-11-06 19:00] VITALS: BP 144/52
--- NOTE | 2024-11-06 19:36 | ED.GENMED ---
History of Present Illness
General
Chief Complaint: Breathing Problem
Source: patient
Exam Limitations: none
Time Seen by Provider: 11/06/24 19:08
Nursing documentation reviewed up to this point in time: agreed with
History of Present Illness
History of Present Illness:
79-year-old female history of COPD no longer smoking not on chronic steroids not on chronic oxygen she is on 3 times a week Zithromax from pulmonary chronically, for past month she has been sick with upper respiratory tract symptoms fever diagnosed
clinically with pneumonia after being on a boat trip with her daughter treated with a burst of steroids and doxycycline I think she got better then she relapsed, followed up at the PCP today had a nebulizer sent here here she is tachypneic, wheezing
dyspneic states she is having fever with productive sputum, multiple allergies and intolerances
Past History
Past History
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
ED Past Surgical History: Cardiac (Subclavian stenosis stenting)
Social History
Tobacco: Former smoker
Alcohol: None
Drug: None
Personal:
Living: with family
Employment: Retired
Family History
Family History: Other (Reviewed and Noncontributory)
Review of Systems
Review of Systems
All Other Systems: Not applicable
Constitutional: Reports fever and fatigue
Respiratory: Reports cough and trouble breathing; Denies hemoptysis
Cardiac: Reports no symptoms
ABD/GI: Reports no symptoms
: Reports no symptoms
Musculoskeletal: Reports no symptoms
Hematologic/Lymphatic: Reports no symptoms
Psychiatric: Reports no symptoms
Phy Exam
Physical Exam
Physical Exam:
Physical Exam
General: Dyspneic appearing female coughing audibly wheeze
Neck: No jaundice
Heart: Regular
Lungs: Wheezing left greater than
Abdomen: Nontender
Neuro: alert and oriented. no focal neurological deficits
Skin: no rash
Psychiatric: well kept. interactive and cooperative
Extremities: no edema.
Scores
Heart Failure Risk
Heart Failure Risk Score: Not Applicable
Course
Orders/Labs/Results
Orders:
Orders
11/06/24 Dinner
Regular
At Your Request: Limited Participation
11/06/24 15:59
Complete Blood Count/With Diff Urgent
Comprehensive Metabolic Panel Urgent
11/06/24 18:45
CR Chest - 2 Views Urgent
Comment:
Reason For Exam: SOB, cough
11/06/24 18:48
Electrocardiogram (*1) Urgent
Reason for Study: Shortness of Breath
EKG- Treatment ONCE
11/06/24 19:31
Albuterol Sulfate [Ventolin Nebules] 7.5 mg INH R NOW STA
Dexamethasone Sod Phosphate [Decadron] 10 mg IV NOW STA
11/06/24 19:40
Sputum Culture [Respiratory Culture/Gram Stain] Urgent
EMANUEL Source: Sputum
Specimen Description:
11/06/24 20:58
Admit/Transfer Patient As Directed
Co-Sign Provider:
Level of Care: Inpatient admission
Assign to:: Medical/Surgical
Physician / Group: Suhas
Diagnosis: COPD exacerbation
Reason for Hospitalization: COPD exacerbation w/ hypoxia
Expected length of stay greater than two midnights?: Yes
ELOS- Estimated Length of Stay in days: 2
I certify the patient meets the requirements for IP care: Yes
PRN Pain Medication Management As Directed
May give lesser potent ordered pain med per pt: Yes
preference::
Protocol:: Medication orders for pain may be administered in a
manner that supports deferring to patient preference
when the pt is:
- Requesting an ordered lesser potent pain medication.
Least to most potent pain medications are defined
as: acetaminophen < NSAID < tramadol < opioids
(morphine, oxycodone, hydromorphone).
- Requesting a lesser dose of the same medication IF
ORDERED.
- Requesting a less intrusive route of administration
if both routes are prescribed by the provider (PO <
IV).
11/06/24 20:59
Code Status As Directed
Resuscitation Status: Full Code
11/06/24 22:22
Acetaminophen [Tylenol] 650 mg PO Q4HPRN PRN
Diltiazem [Cardizem] 30 mg PO NOW STA
Diphenhydramine [Benadryl] 25 mg PO HS
Famotidine [Pepcid] 40 mg PO NOW STA
Guaifenesin Solution [Robitussin] 200 mg PO Q4HPRN PRN
Ipratropium/Albuterol Sulfate [Duoneb] 3 ml INH R Q4HPRN PRN
Mag Hydrox/Al Hydrox/Simeth [Maalox] 30 ml PO QIDPRN PRN
11/06/24 22:22
Activity As Directed
Activity Level: With Assistance
Intake/ Output As Directed
Frequency: Per unit guidelines
Vital Signs As Directed
Frequency: Per unit guidelines
Copd Education [RESP] Routine
O2 Therapy [RESP] Routine
Nasal Cannula Liter Flow: 2 LPM
Titrate/Wean O2 to maintain O2 sat greater than (%): 92
Special Instructions: adjust, if necessary, to avoid hyperoxia in CO2 retainers.
Use High Flow O2 if necessary
DX Deep Vein Thrombosis Video Routine
11/07/24 00:00
CefTRIAXone [Rocephin] 1,000 mg IV Q24H
11/07/24 06:00
Basic Metabolic Panel IN AM
Influenza A+B Rapid Molecular IN AM
EMANUEL Source: Nasal Swab
Specimen Description:
Levothyroxine [Synthroid] 75 mcg PO DAILY @ 0600
MethylPREDNISolone PF [Solu-Medrol Pf] 40 mg IV Q6
11/07/24 08:00
Aspirin Low Dose EC [Aspir Low (Enteric Coated)] 81 mg PO DAILY
Cetirizine HCl [Zyrtec] 10 mg PO DAILY
Diltiazem [Cardizem] 30 mg PO BID
Ezetimibe [Zetia] 10 mg PO DAILY
Famotidine [Pepcid] 20 mg PO DAILY
Ipratropium/Albuterol Sulfate [Duoneb] 3 ml INH R QID
Lisinopril [Zestril] 5 mg PO DAILY
Nicotine [Nicoderm Transdermal] 14 mg TRANSDERM DAILY
Pantoprazole [Protonix] 20 mg PO DAILY
Rosuvastatin Calcium [Crestor] 5 mg PO MoTuThFr@0800
11/07/24 18:00
Enoxaparin Sodium [Lovenox] 40 mg SC QPM
Abnormal Lab Results
11/06/24
15:59
WBC 12.3 H 10^3/uL
(4.8-10.8)
MCHC 32.6 L g/dL
(33.0-37.0)
RDW 14.6 H %
(11.5-14.5)
MPV 11.3 H fL
(7.4-10.4)
Abs Immat Gran (auto) 0.1 H 10^3/uL
(0-0.05)
Absolute Neuts (auto) 8.6 H 10^3/uL
(1.4-6.5)
Absolute Monos (auto) 1.3 H 10^3/uL
(0.1-0.6)
Lymphocytes % 18.1 L %
(20.5-51.1)
Monocytes % 10.4 H %
(1.7-9.3)
Chloride 112 H mmol/L
(98-107)
Glucose 102 H mg/dl
(70-99)
Total Protein 6.0 L g/dl
(6.3-8.2)
11/06/24 15:59
11/06/24 15:59
Vital Signs
Initial and Last Documented VS:
Initial Vital Signs
Temp Pulse Resp BP Pulse Ox
99.5 F 112 18 134/87 95
11/06/24 15:51 11/06/24 15:51 11/06/24 15:51 11/06/24 15:51 11/06/24 15:51
Last Documented Vital Signs
Temp Pulse Resp BP Pulse Ox
98.5 F 98 22 150/60 95
11/06/24 22:29 11/06/24 22:29 11/06/24 22:29 11/06/24 22:29 11/06/24 23:57
MDM/Problems Addressed
Differential Diagnosis Includes:
COPD pneumonia bronchitis heart failure less likely PE or pneumothorax
MDM/Problems Addressed:
Shortness of breath
Chronic conditions affecting care: COPD
Acute Exacerbation and/or Progression of Chronic Illness: COPD
*Radiology
Radiology exam reviewed: preliminary read by ED provider
*Pulse Oximetry
SaO2: 95
Oxygen Mode of Delivery: Room air
Patient hypoxic: no
*EKG
Interpreted by ED Provider?: Yes
Interpretation: abnormal
Comparison EKG: no comparison EKG present
Heart Rate: 78
Rate: normal
Rhythm: sinus
Ischemia: non-specific ST changes
*Completion Supervisor Interpretation
Rate: normal
Interpretation: normal
Heart Rate: 78
Rhythm: sinus
*Critical Care Note
Total Time (30-74mins, 75-104mins- exclusive of procedures): Not Applicable
Data Reviewed
Review of Other/Old Records Reveals: Labs and Records
Source: patient and records
Further Testing Considered But Not Given:
CT scan
Update Note
Update Note:
Update patient moderate symptoms wheeze tachypnea up until recently was still smoking prior pulmonary notes reviewed she had a similar admission for 5 months ago apparently had some worsening PFTs, does look like she stopped smoking, will treat with
IV steroids nebulizers here low threshold to admit fairly symptomatic nearly 100 degrees today chest x-ray noted slightly chronic finding at her left base will wait for formal report she is on doxycycline recently chronic Zithromax unclear if more
antibiotics are indicated
ED Attending Note
-
Portions of this chart may have been created with voice recognition software.� Occasional wrong word or��sound alike� substitutions may have occurred due to the inherent limitations of voice recognition software.
Discharge Plan
Departure
Patient Disposition: Admit
Date of Disposition: 11/06/24
Time of Disposition: 20:07
Admit to: Med/Surg
Presentation/result/management discussed w/ accepting MD/DO: Hospitalist
Patient with high blood pressure during this ER visit?: No
Condition: Fair
Covid-19: Not Applicable
Discharge Problem:
COPD exacerbation
Interventions
Interventions:
*Risk Screen - Suicide Last Done: 11/06/24 15:53
*General Assessment Last Done: 11/06/24 22:17
*Neglect/Abuse Screening Last Done: 11/06/24 22:17
*ED- Fall Risk Assessment Last Done: 11/06/24 22:17
*ED COVID-19 Vaccine History Last Done: 11/06/24 22:17
*Nursing Disposition Last Done: 11/06/24 22:17
ED- Cardiac Assessment Last Done: 11/06/24 20:23
ED- Pulmonary Assessment Last Done: 11/06/24 20:23
Discharge Date and Time
Discharge Date/Time: 11/06/24 22:18
[2024-11-06] MEDS: VENTOLIN NEBULES 7.5 MG INH (19:52)
[2024-11-06] MEDS: DECADRON 10 MG IV (19:52)
[2024-11-06 20:31] VITALS: BP 114/57
--- NOTE | 2024-11-06 20:50 | HPS.HSE ---
Family Physician
-
Family Physician: Aria Chu
Chief Complaint
-
Shortness of breath
History of Present Illness
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
presents to the emergency department after initial treatment for COPD exacerbation with worsening cough wheezing dyspnea on exertion and shortness of breath.
Patient reported that symptoms began about 4 weeks ago when daughter came down with cough syndrome. She also started developing a cough. Then she had wheezing and shortness of breath. She was seen by a physician and was told she had
consolidation. She was started on doxycycline and a prednisone taper. She completed 9 days of prednisone taper and finished doxycycline last . On Wednesday she said she initially was feeling better but then started having cough or wheezing
and dyspnea on exertion again. She says she had low-grade temperatures at home. She reports that her cough is productive of yellow sputum in the mornings but in the evenings becomes whitish. She denies having any chest pain. She reports right
lower thoracic posterior pain. She denies any ankle swelling. Reports remote prior history of DVT but not recently.
In the emergency department she had a temp of 99.5, blood pressure was 140/60 with a pulse of 109 she was satting 97% on 2 L.
Chest x-ray was clear. ECG shows normal sinus rhythm at a rate of 87, troponin negative.
She had a white count of 12.3 hemoglobin 13.9 platelet 250. Electrolytes were all normal, BUN/creatinine were normal.
Medical History
Past Medical History
Past Medical History: Reports Other
Additional Past Medical History:
Hyperlipidemia
Hypertension
PAD
COPD
Immunoglobin deficiency
Pneumonia
Pulmonary nodule
DVT
Chronic bronchitis
TIA
Bilateral carotid stenosis
Past Surgical History: Reports Other
Additional Past Surgical History:
Appendectomy
Cholecystectomy
Thyroidectomy
Parathyroid removal
Left subclavian artery stent
Cardiac ablation
Right hip replacement
Social History
Tobacco: Former Smoker
Alcohol: None
Drug: None
Living: With Family
Family History
Family History: Not pertinent
Allergies / Home Medications
Allergies reflects when Allergies were last updated in [employer]
Home Medications with original date entered in [employer]
Allergy/Medication List:
Allergies
Allergy/AdvReac Type Severity Reaction Status Date / Time
bupropion HCl Allergy Hives / Verified 06/27/24 12:23
[From Wellbutrin] throat
tightness
dexlansoprazole Allergy Vomiting Verified 06/27/24 12:23
[From Dexilant]
duloxetine [From Cymbalta] Allergy Nausea, Verified 06/27/24 12:23
'burning'
tongue
house dust Allergy Wheezing, Verified 06/27/24 12:23
Sneezing
hydrochlorothiazide Allergy Burning of Verified 06/27/24 12:23
tongue
immune globulin,gamma (IgG) Allergy Serum Verified 06/27/24 12:23
human Sickness
Iodinated Contrast Media Allergy Hives Verified 06/27/24 12:23
iohexol [From Omnipaque] Allergy 300-HEAT Verified 06/27/24 12:23
ACCROSS
CHEST AND
1 HIVE
06/29/1997
Penicillins Allergy as a Verified 06/27/24 12:23
child;
tolerated
cephalexin
Sulfa (Sulfonamide Allergy Hives Verified 06/27/24 12:23
Antibiotics)
venom-honey bee Allergy Anaphylaxis Verified 06/27/24 12:23
[bee venom (honey bee)]
Home Medications
cetirizine 10 mg tablet 10 mg PO DAILY Allergies 03/06/16
diltiazem HCl 30 mg tablet 30 mg PO BID Heart disease/condition 03/06/16
diphenhydramine HCl 25 mg capsule (Banophen) 25 mg PO HS sleep 04/03/19
aspirin 81 mg tablet,delayed release 81 mg PO DAILY Blood clot prevention/tx 04/01/20
rosuvastatin 5 mg tablet 5 mg PO MOTUTHFR High cholesterol 04/01/20
cholecalciferol (vitamin D3) 25 mcg (1,000 unit) tablet 25 mcg PO DAILY Supplement 04/20/23
ezetimibe 10 mg tablet 10 mg PO HS High Cholesterol 04/20/23
fluticasone 250 mcg-salmeterol 50 mcg/dose blistr powdr for inhalation (Wixela Inhub) 1 inh inhalation R BID Lung/Breathing Issues 04/20/23
levothyroxine 75 mcg tablet 75 mcg PO DAILY Thyroid 04/20/23
lisinopril 5 mg tablet 5 mg PO DAILY Blood Pressure 04/20/23
oxycodone-acetaminophen 5 mg-325 mg tablet 0.5 tab PO BIDPRN PRN back pain 04/20/23
tiotropium bromide 2.5 mcg/actuation mist for inhalation (Spiriva Respimat) 1 inh inhalation R BID Lung/Breathing Issues 04/20/23
famotidine 40 mg tablet 40 mg PO BID fluid retention/edema 11/23/23
polyethylene glycol 3350 17 gram oral powder packet (Miralax) 8.5 g PO NOON constipation 11/23/23
azithromycin 250 mg tablet 250 mg PO USEASDIRECTD 06/27/24
methylprednisolone 4 mg tablets in a dose pack 4 mg PO PER PKG DIR 06/27/24
Review of Systems
-
Constitutional: Reports No Symptoms
EENT: Reports No Symptoms
Respiratory: Reports Cough and Trouble Breathing
Cardiac: Reports No Symptoms
Abdomen/GI: Reports No Symptoms
: Reports No Symptoms
Musculoskeletal: Reports No Symptoms
Skin: Reports No Symptoms
Neurological: Reports No Symptoms
Endocrine: Reports No Symptoms
Hematologic/Lymphatic: Reports No Symptoms
Psych: Reports No Symptoms
Physical Exam
Vital Signs
Vital Signs
Temp Pulse Resp BP Pulse Ox
99.5 F 97 16 144/52 97
11/06/24 15:51 11/06/24 20:15 11/06/24 20:15 11/06/24 19:00 11/06/24 20:23
Physical Exam
General: Well Developed, Well Nourished and No Apparent Distress
HEENT: NormoCephalic, Moist mucous membranes and Atraumatic
Respiratory: Wheezes
Cardiac: S1/S2 and Regular Rhythm; No Murmur or Rub
GI: Soft, Non Tender, Non Distended and Normal Bowel Sounds; No Organomegaly
Rectal: Deferred by Provider
Musculoskeletal: No Clubbing, No Cyanosis and No Edema
Skin: No Rash
Neuro: AO x 3 and Nonfocal/grossly intact
Psych: Calm
Laboratory Results
-
11/06/24 15:59
11/06/24 15:59
Laboratory Results
Total Bilirubin 0.4 mg/dl (0.2-1.3) 11/06/24 15:59
AST 20 U/L (14-36) 11/06/24 15:59
ALT 21 U/L (0-35) 11/06/24 15:59
Alkaline Phosphatase 78 U/L (38-126) 11/06/24 15:59
Data Reviewed
-
Diagnostic Radiology: Image Personally Visualized and interpreted
Medical Tests (Nuc Med, Echo, EKG etc): Image Personally Visualized and interpreted
Lab Data: Labs Reviewed by me
Old Records: Reviewed
Impression/Plan
-
IMPRESSION:
79-year-old female with history of COPD/emphysema, acquired immunodeficiency, hypothyroid and hypertension presenting to the emergency department with ongoing/worsening cough dyspnea exertion and shortness of breath despite treatment down outpatient
with a prednisone taper and doxycycline. She is on chronic azithromycin suppression/type telemetry for her lung disease prior to this episode. Cough productive of thick yellow sputum. There is no consolidation on x-ray she has low-grade symptoms
but otherwise shows no signs of acute infection.
PLAN:
COPD exacerbation -sustained exacerbation despite outpatient treatment which initially improved but appears to have rebounded. No signs of volume overload, unlikely PE
-Admit to MedSurg
-Status post doxycycline, changed to IV ceftriaxone
-Solu-Medrol 40 mg IV every 12
-Nebs RTC as needed
-Given degree of pulmonary disease and chronic azithromycin will have pulmonary consultation
-Supplemental oxygen as needed
-Check D-dimer
Gallo's esophagus
- PPI daily
-Famotidine at bedtime
HTN
- continue lisinopril
Hypothyroid
- continue levothyroxine
DVT PPX - lovenox sq
Code Status - Full Code [intubate if cardiac arrest but not for pulmonary disease, no prolonged ventilation]
[2024-11-06 22:00] VITALS: BP 120/78
[2024-11-06 22:00] LABS: COVID-19 Antigen Negative (Negative)
[2024-11-06 22:29] VITALS: BP 150/60; BMI 23.2
[2024-11-06] MEDS: CARDIZEM 30 MG PO (23:20)
[2024-11-06] MEDS: PEPCID 40 MG PO (23:22)
[2024-11-06] MEDS: STERILE WATER FOR INJECTION 10 ML IV (23:23)
[2024-11-06] MEDS: ROCEPHIN 1000 MG IV (23:23)
[2024-11-06] MEDS: BENADRYL 25 MG PO (23:23)
[2024-11-07] MEDS: SOLU-MEDROL PF 40 MG IV (05:43)
[2024-11-07] MEDS: SYNTHROID 75 MCG PO (05:43)
[2024-11-07] MEDS: DUONEB 3 ML INH ×4 (07:36→19:14)
[2024-11-07] MEDS: SPIRIVA RESPIMAT 2.5 MCG INH (07:37)
[2024-11-07 07:54] VITALS: BP 109/49
[2024-11-07] MEDS: PROTONIX 20 MG PO (08:04)
[2024-11-07] MEDS: ZESTRIL 5 MG PO (08:04)
[2024-11-07] MEDS: NICODERM TRANSDERMAL 14 MG TRANSDERM (08:04)
[2024-11-07] MEDS: ZYRTEC 10 MG PO (08:05)
[2024-11-07] MEDS: ASPIR LOW (ENTERIC COATED) 81 MG PO (08:05)
[2024-11-07] MEDS: CARDIZEM 30 MG PO ×2 (08:05→19:40)
[2024-11-07] MEDS: CRESTOR 5 MG PO (08:08)
[2024-11-07 08:12] LABS: Blood Urea Nitrogen 20 mg/dl (7-17); Calcium 9.4 mg/dl (8.4-10.2); Carbon Dioxide 22 mmol/L (22-30); Chloride 111 mmol/L (98-107); Estimated Creatinine Clearance 51 ml/min; Glucose 154 mg/dl (70-99); Potassium 4.6 mmol/L (3.5-5.1); Sodium 139 mmol/L (135-145); eGFR > 60.00
[2024-11-07] MEDS: ROBITUSSIN 200 MG PO (08:38)
--- NOTE | 2024-11-07 08:57 | CON.PUL ---
Consultation
Consultation Request
Date/Time Consultation Requested: 11/06/2024
Date/Time Consultation Performed: 11/07/2024
Requesting Provider: Salvador Dai
Performing Provider: Ever Yo
Reason for Consultation: COPD exacerbation
Medical History
-
Chief Complaint: Shortness of breath
History of Present Illness:
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
symptoms. Patient was evaluated outpatient was treated with Medrol Dosepak as well as azithromycin and later with doxycycline. Patient had improvement in her symptoms, however once she completed treatment she started having again increasing cough
wheezing and shortness of breath. Patient subsequently was evaluated in the emergency room and was admitted to the hospitalist service for further management. Pulmonary consultation was requested for further input.
Medical History
Past Medical History
Past Medical History: Reports Other
Additional Past Medical History:
Hyperlipidemia
Hypertension
PAD
COPD
Immunoglobin deficiency
Pneumonia
Pulmonary nodule
DVT
Chronic bronchitis
TIA
Bilateral carotid stenosis
Past Surgical History: Reports Other
Additional Past Surgical History:
Appendectomy
Cholecystectomy
Thyroidectomy
Parathyroid removal
Left subclavian artery stent
Cardiac ablation
Right hip replacement
Social History
Tobacco: Former Smoker
Alcohol: None
Drug: None
Living: With Family
Family History
Family History: Not pertinent
Allergies / Home Medications
Allergies
Allergy/AdvReac Type Severity Reaction Status Date / Time
bupropion HCl (From Allergy Hives / Verified 06/27/24 12:23
Wellbutrin) throat
tightness
dexlansoprazole (From Allergy Vomiting Verified 06/27/24 12:23
Dexilant)
duloxetine (From Cymbalta) Allergy Nausea, Verified 06/27/24 12:23
'burning'
tongue
house dust Allergy Wheezing, Verified 06/27/24 12:23
Sneezing
hydrochlorothiazide Allergy Burning of Verified 06/27/24 12:23
tongue
immune globulin,gamma (IgG) Allergy Serum Verified 06/27/24 12:23
human Sickness
Iodinated Contrast Media Allergy Hives Verified 06/27/24 12:23
iohexol (From Omnipaque) Allergy 300-HEAT Verified 06/27/24 12:23
ACCROSS
CHEST AND
1 HIVE
06/29/1997
Penicillins Allergy as a Verified 06/27/24 12:23
child;
tolerated
cephalexin
Sulfa (Sulfonamide Allergy Hives Verified 06/27/24 12:23
Antibiotics)
venom-honey bee (bee venom Allergy Anaphylaxis Verified 06/27/24 12:23
(honey bee))
Home Medications
�Medication �Instructions �Recorded �Confirmed �Last Taken �Type
cetirizine 10 mg tablet 10 mg PO DAILY Allergies 03/06/16 11/06/24 06/27/24 History
diltiazem HCl 30 mg tablet 30 mg PO BID Heart 03/06/16 11/06/24 06/27/24 History
disease/condition
diphenhydramine HCl 25 mg capsule 25 mg PO HS sleep 04/03/19 11/06/24 06/26/24 History
(Banophen)
aspirin 81 mg tablet,delayed 81 mg PO DAILY Blood clot 04/01/20 11/06/24 06/27/24 History
release prevention/tx
rosuvastatin 5 mg tablet 5 mg PO MOTUTHFR High cholesterol 04/01/20 11/06/24 06/27/24 History
cholecalciferol (vitamin D3) 25 25 mcg PO DAILY Supplement 04/20/23 11/06/24 06/27/24 History
mcg (1,000 unit) tablet
levothyroxine 75 mcg tablet 75 mcg PO DAILY Thyroid 04/20/23 11/06/24 06/27/24 History
lisinopril 5 mg tablet 5 mg PO DAILY Blood Pressure 04/20/23 11/06/24 06/27/24 History
oxycodone-acetaminophen 5 mg-325 0.5 tab PO BIDPRN PRN back pain 04/20/23 11/06/24 1 Week Ago History
mg tablet ~11/16/23
famotidine 40 mg tablet 40 mg PO HS fluid retention/edema 11/23/23 11/06/24 06/27/24 History
polyethylene glycol 3350 17 gram 8.5 g PO NOON constipation 11/23/23 11/06/24 11/22/23 History
oral powder packet (Miralax)
azithromycin 250 mg tablet 250 mg PO USEASDIRECTD 06/27/24 11/06/24 06/27/24 History
pantoprazole 20 mg tablet,delayed 20 mg PO DAILY #30 tabs 06/30/24 11/06/24 Unknown Rx
release (Protonix)
ezetimibe 10 mg tablet (Zetia) 10 mg PO HS 11/06/24 11/06/24 Unknown History
fluticasone 250 mcg-salmeterol 50 1 inh inhalation BID 11/06/24 11/06/24 11/06/24 History
mcg/dose blistr powdr for
inhalation (Wixela Inhub)
nicotine 14 mg/24 hr daily 1 patch transdermal DAILY 11/06/24 11/06/24 Unknown History
transdermal patch
tiotropium bromide 2.5 2 puff inhalation DAILY 11/06/24 11/06/24 11/06/24 History
mcg/actuation mist for inhalation
(Spiriva Respimat)
Review of Systems
-
Hematologic/Lymphatic: Other (All 14 systems reviewed and negative except as stated above in the history of present illness.)
Vitals / Labs / Diagnostic Testing
Vital Signs
Temp Pulse Resp BP Pulse Ox
98.3 F 87 20 109/49 96
11/07/24 07:54 11/07/24 08:04 11/07/24 07:54 11/07/24 08:04 11/07/24 07:54
Lab Data
11/06/24 15:59
11/07/24 07:11
Microbiology
11/07/24 06:13 Nasal Swab Influenza Types A & B ([facility]) - Final
Negative for Influenza A & B, NAAT
Negative results must be combined with clinical observations
and patient history.
Nucleic Acid Amplification test (NAAT)performed on the
[employer] ID NOW platform.
11/06/24 21:33 Nasal Swab Influenza Types A & B (KE[facility]) - Final
Negative for Influenza A & B, NAAT
Negative results must be combined with clinical observations
and patient history.
Nucleic Acid Amplification test (NAAT)performed on the
[employer] ID NOW platform.
Diagnostic Testing:
Physical Exam
-
HEENT: Normocephalic
Cardiovascular: S1/S2
Respiratory: Wheeze
GI: Soft and Non Distended
Neurology: Awake and Alert
Skin: Warm
General: Comfortable
Assessment
-
#1. Acute COPD exacerbation
- Known h/o COPD/Emphysema, follows up at [facility] with Dr. Fontenot. (FEV1 64%, DLCO 35%, TLC 124%, Moderate obstruction, severe gas exchange defect, air trapping and hyperinflation)
- Continue DuoNeb 4 times daily scheduled, hold Spiriva while patient receiving nebulized therapy. Added budesonide nebulized twice a day, agree with continuing steroids
- Await CT chest in case patient has any pulmonary infiltrate/consolidation
- Currently on ceftriaxone. Patient has completed course of doxycycline and azithromycin as outpatient. At baseline she is on Zithromax Wednesday
#2. h/o Pulmonary nodule.
- CT Chest in 06/2024 showed small GGO in RLL, superior segment
- F/u CT chest in 6 months for ongoing surveillance
#3. H/o Smoking.
- Patient reports she quit smoking in June 2024 and rarely sneaks a cigarette here and there
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
Personal history of COVID-19 (March 2020)
Anxiety
Osteoporosis
CAD
Hypertension
RLE DVT (1981)
History of recurrent pneumonia/bronchitis
Carotid artery stenosis
Subclavian artery stent (LEFT)
PAD
History of TIA
Chronic lower back pain
History of Prinzmetal's angina
Psoriatic arthritis
Polycythemia
Hx of 'stomach tear'
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
Hypothyroidism s/p thyroidectomy
Thymic irradiation for infantile cyanosis
Total time spent on this consultation/encounter _65___ minutes which includes review of history, physical exam, medications, laboratory data, personal review of imaging, extensive review of outpatient records, discussion with care team and
respiratory therapy.
Data:
CXR 10/2024: No acute cardiopulmonary process.
CT Chest 06/2024: Hyperinflated lungs compatible with COPD/emphysema.
In the superior segment of the right lower lobe, focus of linear and groundglass opacity, perhaps with slight interval decrease in degree of groundglass opacity. This most likely represents scarring, but continued follow-up is recommended. Consider
a follow-up CT of the chest in February 2025.
Small focus of branching nodular opacity within the right middle lobe, new from prior examination, and likely a small focus of small airway disease.
Dense coronary artery calcifications are present. Please correlate with symptoms of and risk factors for coronary artery disease, with further workup as clinically appropriate.
ECHO 06/2024: Small LV cavity with hyperdynamic systolic function and no obvious regional
wall motion abnormalities.
LVEF is greater than 70% by visual estimation.
Normal right ventricular size and function.
No significant valvular disease.
Insufficient TR for estimation of PASP.
Compared to prior from July 19, 2020, no significant change.
PFT 09/05/24: FVC 2.64/111%, FEV1 1.13/64%, ratio 45.� There is a 12% improvement in the FVC following bronchodilator.� TLC 5.50/124%, RV 2.90/143%, RV/TLC ratio 53.� DLCO 6.48/35%.� Moderate obstruction with significant bronchodilator response,
hyperinflation and air trapping, severe gas exchange defect.
--- NOTE | 2024-11-07 10:26 | W.PN.HOSP.TC ---
Today's Communication/Plan
-
CT chest
Pulmonary consult
Mucinex
Incentive spirometry
Continue steroids, inhalers
Assessment / Plan
Assessment / Plan
Gen-AAOx3, tachypneic
HEENT-NC, AT, anicteric, clear oral mm
Neck-supple
CV-reg, no M, +S1/S2
Lungs-bilateral wheezing
Abd-soft, NT, ND
Ext-no edema
Musculoskeletal-no cyanosis, clubbing
Skin-warm and dry
Neuro-grossly non-focal
Psych-calm, cooperative
Acute hypoxic respiratory failure -due to acute COPD exacerbation. Requiring 2 L nasal cannula oxygen, wean down as able. Tachypneic on exam.
Admission 2 view chest x-ray read as clear.
Acute COPD exacerbation -continue steroids, inhalers. Check CT chest to rule out infiltrate, pneumonia. If no infiltrate will discontinue ceftriaxone. Pulmonary consulted. Continue incentive spirometry, Mucinex.
History of tobacco dependence -she stopped smoking in June of this year.
Essential hypertension -stable.
Hyperlipidemia -rosuvastatin.
Hypothyroidism -continue levothyroxine.
History of VTE
History of TIA
PAD
Gallo's esophagus
IgG deficiency -history of thymus resection as an .
Full code
Anticipated Discharge: > 48 hours
Subjective/Interval History
-
Date of Service: November 07, 2024
Patient seen and examined. Complaining of cough, wheezing.
Objective Data
-
Labs:
Laboratory Results
11/07/24
07:11
Sodium 139
Potassium 4.6
Chloride 111 H
Carbon Dioxide 22
BUN 20 H
Creatinine 0.7
Glucose 154 H
Calcium 9.4
Vital Signs:
Vital Signs
Temp Pulse Resp BP Pulse Ox
98.3 F 87 20 109/49 96
11/07/24 07:54 11/07/24 08:04 11/07/24 07:54 11/07/24 08:04 11/07/24 09:11
I&O
11/06/24 11/07/24 11/08/24
06:59 06:59 06:59
Intake Total 240 / 240
Balance 240 / 240
Review of Systems
-
History Source: Patient
All other systems: Reviewed and negative
[2024-11-07] MEDS: MUCINEX 600 MG PO ×2 (11:56→19:33)
[2024-11-07] MEDS: MIRALAX 17 GRAMS PO (11:56)
[2024-11-07] MEDS: TYLENOL 650 MG PO (14:08)
[2024-11-07 16:02] VITALS: BP 123/50
--- NOTE | 2024-11-07 16:20 | CM ---
Alert awake oriented patient who lives alone in a 2 story home with 4 steps to enter and lives on first floor. She is independent in activates of daily living.She does drive .No Adaptive devices.
Had [facility] in past . No SNF hx
Pharmacy [facility]
PCP Dr Chu
PLAN Will need PT OT for dc planning
[2024-11-07] MEDS: PULMICORT 0.5 MG INH (19:15)
[2024-11-07] MEDS: BENADRYL 25 MG PO (21:12)
[2024-11-07] MEDS: ZETIA 10 MG PO (21:12)
[2024-11-07] MEDS: ATIVAN 0.25 MG PO (21:12)
[2024-11-07] MEDS: PEPCID 20 MG PO (21:13)
--- NOTE | 2024-11-07 23:01 | W.PN.UPDATE ---
Update Note
Progress Note Update
Reported by the nursing staff that the patient started to be restless, very anxious with some of SOB after receiving Pulmicort. Per patient she is allergic to one of the content of Pulmicort and had the same symptoms when she received it on the
past. Patient requested her regular inhaler to be ordered instead of Pulmicort. Med adjusted as the patient requested.
--- NOTE | 2024-11-07 23:03 | PTCARENOTE ---
Pt was c/o SOB, restless and anxiety after receiving Pulmicort. Pt state she had a bronchospasm last time when she had meds with budesonide. RELATIONS DIRECTOR notified and Ativan po order for symptoms. RELATIONS DIRECTOR also came to see pt. Pt was given 2L for SOB until she
calmed down. 1 hr after receiving Ativan, pt felt better. Will continue to monitor.
[2024-11-07 23:10] VITALS: BP 103/51
[2024-11-08] MEDS: SYNTHROID 75 MCG PO (05:49)
[2024-11-08 07:00] VITALS: BP 102/48
[2024-11-08] MEDS: DUONEB 3 ML INH (07:13)
[2024-11-08] MEDS: SPIRIVA RESPIMAT 2.5 MCG 2 PUFF INH (07:14)
[2024-11-08 07:37] LABS: Hematocrit 33.4 % (37.0-47.0); Hemoglobin 10.9 g/dL (12.0-16.0); Mean Corp Hgb Conc. 32.6 g/dL (33.0-37.0); Mean Corpuscular Hgb 29.7 pg (27.0-31.0); Mean Platelet Volume 11.9 fL (7.4-10.4); Platelet Count 216 10^3/uL (130-400); Red Blood Cell Count 3.67 10^6/uL (4.20-5.40); Red Cell Dist. Width 14.7 % (11.5-14.5); White Blood Cell Count 12.2 10^3/uL (4.8-10.8)
[2024-11-08] MEDS: MUCINEX 600 MG PO (08:06)
[2024-11-08] MEDS: PROTONIX 20 MG PO (08:07)
[2024-11-08] MEDS: ZESTRIL 5 MG PO (08:07)
[2024-11-08] MEDS: NICODERM TRANSDERMAL 14 MG TRANSDERM (08:08)
[2024-11-08] MEDS: ZYRTEC 10 MG PO (08:08)
[2024-11-08] MEDS: ASPIR LOW (ENTERIC COATED) 81 MG PO (08:08)
[2024-11-08] MEDS: CARDIZEM 30 MG PO (08:08)
[2024-11-08] MEDS: DELTASONE 40 MG PO (08:08)
[2024-11-08] MEDS: ZITHROMAX 250 MG PO (08:11)
[2024-11-08 08:12] LABS: Blood Urea Nitrogen 24 mg/dl (7-17); Carbon Dioxide 25 mmol/L (22-30); Chloride 111 mmol/L (98-107); Estimated Creatinine Clearance 44 ml/min; Glucose 90 mg/dl (70-99); Potassium 4.7 mmol/L (3.5-5.1); Sodium 139 mmol/L (135-145); eGFR > 60.00
--- NOTE | 2024-11-08 09:47 | PN.CDI ---
CDI
- -
CDI:
Physician Documentation Request
Admit Date: 11/06/24 21:06
Dear Doctor Huyen,
Patient admitted for COPD exacerbation.
Laboratory Tests
11/06/24
15:59
WBC 12.3 H
11/06/24
15:51 11/06/24
18:45 11/06/24
19:30
Pulse 112 102 102
11/06/24
18:44 11/06/24
19:00 11/06/24
19:30
Resp Rate
Please clarify which most accurately describes the patient:
Sepsis
Systemic manifestations of infection, with 2 or more SIRS criteria which include:
Fever > 100.4 degrees F or hypothermia < 96.8 degrees F
Leukocytosis - WBC > 12,000 or leukopenia, WBC < 4,000 or > 10% bands
Tachycardia - > 90 beats per minute
Tachypnea - RR > 20 breaths per minute or PaCO2 < 32 mmHg
Source: Merck Manual 2013
Indicate the known or suspected organism
Indicate the known or suspected underlying infection, such as UTI, pneumonia or cellulitis
Indicate if a suspected bacterial infection of unknown source
Indicate if associated with an implanted device such as a F/C, PICC line, orthopedic hardware etc.
Indicate if there is associated organ dysfunction, such as renal or respiratory failure
SIRS due to a non-infectious source
Indicate the known or suspected etiology
Indicate if there is associated organ dysfunction, such as renal or respiratory failure
Other
Use of terms such as suspected, likely, concern for, or probable (associated with a specific diagnosis that is being evaluated, monitored, or treated as if it exists) are acceptable and can be coded in the inpatient setting, when documented at the
time of discharge.
Thank you,
Yarelis Elliott
CDI Specialist
Please use your independent medical judgment in providing your response.
--- NOTE | 2024-11-08 10:25 | W.PN.PUL3 ---
Today's Communication / Plan
-
- Resume Wixela and Spiriva at discharge
- Albuterol Nebz PRN
- Resume Azithomycin Wed-Wed-Wed
- Prednisone 40 mg x 3, then 30 mg x 3 then 20 mg x 3 then stop taking.
- Out patient follow up with Pulmonary clinic
Assessment
-
#1. Acute COPD exacerbation
- Known h/o COPD/Emphysema, follows up at [facility] with Dr. Fontenot. (FEV1 64%, DLCO 35%, TLC 124%, Moderate obstruction, severe gas exchange defect, air trapping and hyperinflation)
- Continue DuoNeb 4 times daily scheduled, holding Spiriva while patient receiving nebulized therapy. Added budesonide nebulized twice a day, however patient does not tolerate inhaled ICS via inhaler or nebulizer with increased sense of chest
tightness afterwards. Will discontinue budesonide
- CT chest without any obvious consolidation suggestive of pneumonia. Resolving right lower lobe superior segment opacity noted.
- Patient has completed course of doxycycline and azithromycin as outpatient. At baseline she is on Zithromax Wednesday
- Stable for discharge home, will resume Wixela and Spiriva along with as needed albuterol. Will give tapering dose of prednisone and resume home dose of Zithromax.
#2. h/o Pulmonary nodule.
- CT Chest in 06/2024 showed small GGO in RLL, superior segment
- F/u CT chest in 6 months for ongoing surveillance
#3. H/o Smoking.
- Patient reports she quit smoking in June 2024 and rarely sneaks a cigarette here and there
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
Personal history of COVID-19 (March 2020)
Anxiety
Osteoporosis
CAD
Hypertension
RLE DVT (1981)
History of recurrent pneumonia/bronchitis
Carotid artery stenosis
Subclavian artery stent (LEFT)
PAD
History of TIA
Chronic lower back pain
History of Prinzmetal's angina
Psoriatic arthritis
Polycythemia
Hx of 'stomach tear'
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
Hypothyroidism s/p thyroidectomy
Thymic irradiation for infantile cyanosis
Total time spent on this consultation/encounter _45___ minutes which includes review of history, physical exam, medications, laboratory data, personal review of imaging, extensive review of outpatient records, discussion with care team and
respiratory therapy.
Data:
CXR 10/2024: No acute cardiopulmonary process.
CT Chest 06/2024: Hyperinflated lungs compatible with COPD/emphysema.
In the superior segment of the right lower lobe, focus of linear and groundglass opacity, perhaps with slight interval decrease in degree of groundglass opacity. This most likely represents scarring, but continued follow-up is recommended. Consider
a follow-up CT of the chest in February 2025.
Small focus of branching nodular opacity within the right middle lobe, new from prior examination, and likely a small focus of small airway disease.
Dense coronary artery calcifications are present. Please correlate with symptoms of and risk factors for coronary artery disease, with further workup as clinically appropriate.
ECHO 06/2024: Small LV cavity with hyperdynamic systolic function and no obvious regional
wall motion abnormalities.
LVEF is greater than 70% by visual estimation.
Normal right ventricular size and function.
No significant valvular disease.
Insufficient TR for estimation of PASP.
Compared to prior from July 19, 2020, no significant change.
PFT 09/05/24: FVC 2.64/111%, FEV1 1.13/64%, ratio 45.� There is a 12% improvement in the FVC following bronchodilator.� TLC 5.50/124%, RV 2.90/143%, RV/TLC ratio 53.� DLCO 6.48/35%.� Moderate obstruction with significant bronchodilator response,
hyperinflation and air trapping, severe gas exchange defect.
Subjective Data
-
Date of Service:
Date of Service: November 08, 2024
Subjective:
Patient reports feeling better, close to her baseline, feels ready for discharge home
Review of Systems
Genitourinary: Other (No new symptoms reported.)
Objective Data
Data Reviewed
Vital Signs / I&O / Oxygen:
Vital Signs
Temp Pulse Resp BP Pulse Ox
98.2 F 71 18 102/48 97
11/08/24 07:00 11/08/24 08:07 11/08/24 07:17 11/08/24 08:07 11/08/24 09:48
Intake and Output
11/07/24 11/08/24 11/09/24
06:59 06:59 06:59
Intake Total 240 / 240 960 / 960
Balance 240 / 240 960 / 960
SaO2 97
Nasal Cannula flow liters per 1
minute
Physical Exam
General: Comfortable
HEENT: Normocephalic
Cardiovascular: S1-S2
Respiratory: Clear
GI: Soft and Non Distended
Neurology: Awake and Alert
Skin: Warm
Labs/Micro/Reports
Lab Data
11/08/24 05:47
11/08/24 05:47
Microbiology
11/07/24 08:02 Sputum Respiratory Culture - Preliminary
Usual Respiratory Yarelis
11/07/24 08:02 Sputum Gram Stain - Preliminary
11/07/24 06:13 Nasal Swab Influenza Types A & B (KE[facility]) - Final
Negative for Influenza A & B, NAAT
Negative results must be combined with clinical observations
and patient history.
Nucleic Acid Amplification test (NAAT)performed on the
[email or web address] platform.
11/06/24 21:33 Nasal Swab Influenza Types A & B (KEATON) - Final
Negative for Influenza A & B, NAAT
Negative results must be combined with clinical observations
and patient history.
Nucleic Acid Amplification test (NAAT)performed on the
[employer] platform.
--- NOTE | 2024-11-08 10:30 | W.PN.HOSP.TC ---
Addendum entered and electronically signed by Kan Matson DO 11/08/24 14:11:
SIRS due to a noninfectious source, likely COPD exacerbation.
Original Note:
Today's Communication/Plan
-
Discharge
Assessment / Plan
Assessment / Plan
Gen-AAOx3, tachypneic
HEENT-NC, AT, anicteric, clear oral mm
Neck-supple
CV-reg, no M, +S1/S2
Lungs-bilateral wheezing
Abd-soft, NT, ND
Ext-no edema
Musculoskeletal-no cyanosis, clubbing
Skin-warm and dry
Neuro-grossly non-focal
Psych-calm, cooperative
Acute hypoxic respiratory failure -due to acute COPD exacerbation. Oxygen weaned to off.
Admission 2 view chest x-ray read as clear.
Acute COPD exacerbation -continue steroids, inhalers. CT chest without findings of pneumonia. Antibiotics discontinued. Resume home dose of azithromycin 3 days a week. Pulmonary okay with discharge today on prednisone taper, outpatient follow-up.
History of tobacco dependence -she stopped smoking in June of this year.
Essential hypertension -stable.
Hyperlipidemia -rosuvastatin.
Hypothyroidism -continue levothyroxine.
History of VTE
History of TIA
PAD
Gallo's esophagus
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
Full code
Dispo - medically stable for discharge.
32 minutes spent in discharge process.
Anticipated Discharge: Today
Subjective/Interval History
-
Date of Service: November 08, 2024
Patient seen and examined. No new complaints.
Objective Data
-
Labs:
Laboratory Results
11/08/24
05:47
WBC 12.2 H
Hgb 10.9 L D
Hct 33.4 L
Plt Count 216 D
Sodium 139
Potassium 4.7
Chloride 111 H
Carbon Dioxide 25
BUN 24 H
Creatinine 0.8
Glucose 90
Calcium 9.0
Vital Signs:
Vital Signs
Temp Pulse Resp BP Pulse Ox
98.2 F 71 18 102/48 97
11/08/24 07:00 11/08/24 08:07 11/08/24 07:17 11/08/24 08:07 11/08/24 09:48
I&O
11/07/24 11/08/24 11/09/24
06:59 06:59 06:59
Intake Total 240 / 240 960 / 960
Balance 240 / 240 960 / 960
Review of Systems
-
History Source: Patient
All other systems: Reviewed and negative
--- NOTE | 2024-11-08 10:37 | W.DS.TRANS ---
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
-
Discharge Instructions:
Discharge Diagnosis/Procedures COPD exacerbation
Diet Regular
Activity As tolerated
Driving Restrictions As prior to admission
Bathing Restrictions None
Instructions:
Stand-Alone Forms:
Changes to Home Medications: No
Discharge Medications:
DC Medications w/original date entered in [facility]
cetirizine 10 mg tablet 10 mg PO DAILY Allergies 03/06/16
diltiazem HCl 30 mg tablet 30 mg PO BID Heart disease/condition 03/06/16
diphenhydramine HCl 25 mg capsule (Banophen) 25 mg PO HS sleep 04/03/19
aspirin 81 mg tablet,delayed release 81 mg PO DAILY Blood clot prevention/tx 04/01/20
rosuvastatin 5 mg tablet 5 mg PO MOTUTHFR High cholesterol 04/01/20
cholecalciferol (vitamin D3) 25 mcg (1,000 unit) tablet 25 mcg PO DAILY Supplement 04/20/23
levothyroxine 75 mcg tablet 75 mcg PO DAILY Thyroid 04/20/23
lisinopril 5 mg tablet 5 mg PO DAILY Blood Pressure 04/20/23
famotidine 40 mg tablet 40 mg PO HS fluid retention/edema 11/23/23
polyethylene glycol 3350 17 gram oral powder packet (Miralax) 8.5 g PO NOON constipation 11/23/23
pantoprazole 20 mg tablet,delayed release (Protonix) 20 mg PO DAILY #30 tabs 06/30/24
ezetimibe 10 mg tablet (Zetia) 10 mg PO HS High Cholesterol 11/06/24
fluticasone 250 mcg-salmeterol 50 mcg/dose blistr powdr for inhalation (Wixela Inhub) 1 inh inhalation BID Lung/Breathing Issues 11/06/24
nicotine 14 mg/24 hr daily transdermal patch 1 patch transdermal DAILY Smoking Cessation 11/06/24
tiotropium bromide 2.5 mcg/actuation mist for inhalation (Spiriva Respimat) 2 puff inhalation DAILY Lung/Breathing Issues 11/06/24
azithromycin 250 mg tablet 250 mg PO MOWEFR Infection #0 tabs 11/08/24
guaifenesin 600 mg tablet, extended release 12 hr 600 mg PO Q12 #14 tabs 11/08/24
prednisone 10 mg tablet 10 mg PO DIRECTED #27 tabs 11/08/24
Home Medication Changes
Pending Results: No
--- NOTE | 2024-11-08 11:05 | CM ---
MD entered order for discharge ..
Weaned off oxygen.POX 95%.
Spoke with pt she said she was ready for discharge.
Son Jaja will drive her home today.
Offered VN she declined need.
PLAN Home no needs
[2024-11-08 11:13] VITALS: BP 108/50
== END 2024-11-08 11:30 | disposition home or self-care (01) | DRG 190 ==
LOC: 4 EAST ACU 21:06
PROVIDERS: Emergency Medicine; Nurse Practitioner Family; ADMITTING PHYSICIAN Internal Medicine; ATTENDING PHYSICIAN Hospitalist; EMERGENCY PHYSICIAN Emergency Medicine; FAMILY PHYSICIAN Family Medicine; OTHER PHYSICIAN Internal Medicine
DX: J44.1 Chronic obstructive pulmonary disease with (acute) exacerbation (principal); J96.01 Acute respiratory failure with hypoxia; R65.10 Systemic inflammatory response syndrome (SIRS) of non-infectious origin without acute organ dysfunction; E89.0 Postprocedural hypothyroidism; I10 Essential (primary) hypertension; E78.00 Pure hypercholesterolemia, unspecified; Z87.891 Personal history of nicotine dependence; Z88.2 Allergy status to sulfonamides; Z79.82 Long term (current) use of aspirin; Z79.890 Hormone replacement therapy; Z79.899 Other long term (current) drug therapy; Z86.16 Personal history of COVID-19; Z86.718 Personal history of other venous thrombosis and embolism; Z86.73 Personal history of transient ischemic attack (TIA), and cerebral infarction without residual deficits; Z87.01 Personal history of pneumonia (recurrent); K22.70 Barrett's esophagus without dysplasia; Z96.641 Presence of right artificial hip joint; D75.1 Secondary polycythemia; F41.9 Anxiety disorder, unspecified; G43.909 Migraine, unspecified, not intractable, without status migrainosus; G89.29 Other chronic pain; I25.119 Atherosclerotic heart disease of native coronary artery with unspecified angina pectoris; L40.50 Arthropathic psoriasis, unspecified; M81.0 Age-related osteoporosis without current pathological fracture; Z11.52 Encounter for screening for COVID-19
CPT/HCPCS: 71046; 71250; 80048; 80053; 85025; 85027; 87070; 87205; 87502; 87811; 93005; 94640; 94644; 96374; 99285

== ENCOUNTER → 2024-12-15 10:05 | Outpatient (REF) | payer OTHER, SELFPAY | LOC: RAD 10:05 | PROVIDERS: ATTENDING PHYSICIAN Physician Assistant Medical; FAMILY PHYSICIAN Family Medicine | DX: M48.062 Spinal stenosis, lumbar region with neurogenic claudication (principal) | CPT/HCPCS: 72110 ==

== ENCOUNTER → 2024-12-28 10:29 | Outpatient (REF) | payer OTHER, SELFPAY | LOC: RAD 10:29 | PROVIDERS: ATTENDING PHYSICIAN Surgery Vascular Surgery; FAMILY PHYSICIAN Family Medicine | DX: I65.23 Occlusion and stenosis of bilateral carotid arteries (principal) | CPT/HCPCS: 93880 ==

== ENCOUNTER → 2025-01-22 07:13 | Outpatient (REF) | payer OTHER, SELFPAY | LOC: PAVMRI 07:13 | PROVIDERS: FAMILY PHYSICIAN Family Medicine; REFERRING PHYSICIAN Physician Assistant Medical | DX: M48.062 Spinal stenosis, lumbar region with neurogenic claudication (principal) | CPT/HCPCS: 72148 ==